=== PATIENT | female | born 1945 | race Caucasian/White ===

== ENCOUNTER 2018-03-09 10:00 | Outpatient (RCR) | payer OTHER, SELFPAY ==
--- NOTE | 2017-11-15 13:31 | HP.PTREVAL ---
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 Please see the progress note below for an update on the physical therapy plan of care! Subjective: Pt reports that she has weak muscles and that is why she needs to do more PT. She reports that her knee feels like it wants to buckle all the time. She reports that she is using her walker at night to go to bathroom but other than that she walks around the house without any AD. Pt complains of hardness behind the L knee at night. She complains of not having the strength to pull leg back or lift leg up. Objective/Function: Stairs: Up and down recip with hesitation with 2 hand rails. Weakness apparent both ascending and descending stairs. L knee AROM: 0-106 degrees. Tight just below the posterior knee...stick roll out in sitting helped and increased circulation per pt subjective. 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 +++LEFS below was transfered from old chart because pt needs new chart for insurance purposes. Goals Goal 1:: I HEP Goal Time Frame: 6-8 Weeks Goal 2:: Increase L knee AROM 0-120 degrees L knee flexion Goal Time Frame: 6-8 Weeks Goal Progress: Progressing Goal 3:: Be able to walk without AD without antalgic gait Goal Time Frame: 6-8 Weeks Goal 4:: Increase strength in L knee and hip to abolish the feeling that the K knee will give out on her. Goal Time Frame: 6-8 Weeks Anticipated Interventions Please do not hesitate to contact me at [phone] by phone or if you have questions or concerns regarding this new plan of care! Sincerely, Keke Pedro
--- NOTE | 2017-12-08 12:58 | HP.PTREVAL_ITS ---
Yaniv Wiseman, It has been my pleasure to treat JAD CHRISTINA over the last 7 visits for L TKR done 10-09-2017 and spacer replaced 09-08-17 effusion and Fibrosis. Please see the progress note below for an update on the physical therapy plan of care! Subjective: Pt reports that she feels she is still a little weaknd still leaves Objective/Function: Pt favors the R leg with gait with decrease stance time on the L. She needs min A to walk BW without AD for unsteadiness and fear...the more we did the better she became. She also had some trouble with side stepping due to weakness and imbalance. L knee AROM 0- 110 degrees L knee flexion. Stairs: up and down recip with 2 hand rails. Going up was a very smooth motion and going down was a little more broken. Plan Plan: Re assessment with MD. Would like to work on gait and balance mechanics as well as increase L leg strength Goals Goal 1:: I HEP Goal Time Frame: 6-8 Weeks Goal Progress: Goal Met Goal 2:: Increase L knee AROM 0-120 degrees L knee flexion Goal Time Frame: 6-8 Weeks Goal Progress: Progressing Goal 3:: Be able to walk without AD without antalgic gait Goal Time Frame: 6-8 Weeks Goal Progress: Progressing Goal 4:: Increase strength in L knee and hip to abolish the feeling that the K knee will give out on her. Goal Time Frame: 6-8 Weeks Anticipated Interventions Please do not hesitate to contact me at [phone] by phone or Fax: if you have questions or concerns regarding this new plan of care! Sincerely, Keke Pedro
--- NOTE | 2018-03-11 13:03 | HP.PT.NRP ---
HP - Discharge Summary (1) - Patient Information JAD CHRISTINA was seen in my office for initial evaluation on . The following Plan of Care was established for this patient: This patient was last seen in our office . Pertinent comments regarding their Physical therapy will appear below: At this point I will be discontinuing this patient from physical therapy. I would be happy to see this patient again in the future if found appropriate by the physician. Thank you! Keke Pedro
== END 2018-03-09 19:00 | disposition home or self-care (01) ==
LOC: PT 10:00
PROVIDERS: Family Provider Nurse Practitioner Family; PCP Nurse Practitioner Family; Visit Provider Nurse Practitioner Family
DX: Z96.652 Presence of left artificial knee joint (principal)
CPT/HCPCS: 97110; 97140; 97530

== ENCOUNTER → 2018-09-28 08:37 | Outpatient (CLI) | payer OTHER, SELFPAY ==
--- NOTE | 2018-09-28 15:14 | NEURO ---
NCS and/or EMG Patient Report Ordering Doctor: Amilcar Christy DATE OF SERVICE: 09/28/18 Judi Phillips is a 73-year-old female presents for electrodiagnostic testing of the left lower limb. She has complaints of weakness and numbness in the left lower leg. Electrodiagnostic findings: Normal left common peroneal and tibial motor response is noted bilaterally. Normal tibial and peroneal F-wave. H reflex is within normal limits. Prolonged left sural latencies noted normal left superficial peroneal and medial plantar response. Needle EMG testing reveals 1+ fibrillations in the left peroneus longus. Electrodiagnostic impression: This is an abnormal study in the left lower limb 1. 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 2. No electrodiagnostic evidence for peroneal neuropathy. 2. No electrodiagnostic evidence is noted for lumbosacral radiculopathy. If there are any further questions, please do not hesitate to contact me
== END ==
PROVIDERS: Family Provider Nurse Practitioner Family; PCP Nurse Practitioner Family; Referring Provider Specialist; Visit Provider Specialist
DX: R53.1 Weakness (principal)
CPT/HCPCS: 95886; 95910

== ENCOUNTER → 2018-12-15 13:01 | Outpatient (CLI) | payer OTHER, SELFPAY ==
[2017-09-08 19:26] VITALS: BMI 38.9
--- NOTE | 2018-12-15 13:07 | RAD_ITS ---
STUDY: X-RAY - LUMBAR SPINE REASON FOR EXAM: Female, 73 years old. Chronic low back pain. TECHNIQUE: 2 view(s) of the lumbar spine were obtained. COMPARISON: None FINDINGS: Normal lumbar lordosis. There is no substantial scoliosis. Grade 1 anterior listhesis of L4 on L5 without spondylolysis. This is most likely secondary to facet joint osteoarthritis. There is multilevel endplate spondylosis of the lumbar vertebrae. There is multi-level degenerative disc disease with multi-level disc space narrowing. Facet joint osteoarthritis. There is atherosclerotic calcification of the abdominal aorta without a demonstrated aneurysm. RAD/Lumbar Spine 2 or 3 Views IMPRESSION: Degenerative changes of the spine, as detailed above. Grade 1 anterior listhesis of L4 on L5. Electronically Signed: Osvaldo Carter MD at 14:35 EST , Service support ,
== END ==
PROVIDERS: Family Provider Nurse Practitioner Family; PCP Nurse Practitioner Family; Referring Provider Orthopaedic Surgery; Visit Provider Orthopaedic Surgery
DX: M54.5 Low back pain (principal)
CPT/HCPCS: 72100

== ENCOUNTER → 2019-03-08 | Outpatient (CLI) | payer OTHER, SELFPAY ==
--- NOTE | 2019-03-08 09:24 | BD_ITS ---
STUDY: DUAL ENERGY X-RAY ABSORPTIOMETRY / DXA REASON FOR EXAM: Female, 73 years old. The patient is post menopausal. TECHNIQUE: Bone Mineral Density (BMD) measurements of lumbar spine and bilateral hips were obtained. COMPARISON: None. FINDINGS: Lumbar Spine (L1-L4): g/cm2 (1.193) / T-score (0.1) / Z-score (1.8) Findings are suggestive of normal bone density with a low fracture risk. Left Femur Total: g/cm2 (0.953) / T-score (-0.4) / Z-score (1.2) Left Femoral Neck: g/cm2 (0.723) / T-score (-2.3) / Z-score (-0.4) Right Femur Total: g/cm2 (0.999) / T-score (-0.1) / Z-score (1.6) Right Femoral Neck: g/cm2 (0.786) / T-score (-1.8) / Z-score (0.1) BD/Dexa Bone Density Study IMPRESSION: The patient is considered osteopenic as outlined below according to World [employer] Organization (WHO) criteria with a moderate fracture risk. Reference Information: The T-score is the number of standard deviations above or below the standard which is normal for young adults at their peak bone mineral density. The World Health Organization (WHO) interprets the T-scores as follows: Above -1 Normal bone density Between -1 and -2.5 Osteopenia Equal to / or below -2.5 Osteoporosis As a practical clinical guideline, osteopenia may be graded as follows: Mild -1 through -1.5 Moderate -1.6 through -2.0 Severe -2.1 through -2.4 The Z-score is the number of standard deviations above or below age-matched controls. A Z-score of less than -1.5 would be considered abnormal. References: 1. NIH Osteoporosis and Related Bone Diseases http://www.osteo.org 2. International Society for Clinical Densitometry http://www.iscd.org 3. National Osteoporosis Foundation http://www.nof.org Electronically Signed: Osvaldo Carter, at 14:56 EDT , Service support ,
== END | disposition home or self-care (01) ==
PROVIDERS: Family Provider Nurse Practitioner Family; PCP Nurse Practitioner Family; Referring Provider Orthopaedic Surgery; Visit Provider Orthopaedic Surgery
DX: M85.80 Other specified disorders of bone density and structure, unspecified site (principal)
CPT/HCPCS: 77080

== ENCOUNTER → 2020-03-21 | Outpatient (CLI) | payer OTHER, SELFPAY ==
[2017-09-08 19:26] VITALS: BMI 38.9
== END | disposition home or self-care (01) ==
LOC: LABSPEC 15:30
PROVIDERS: PCP Nurse Practitioner Family; Visit Provider Otolaryngology
DX: H92.10 Otorrhea, unspecified ear (principal)
CPT/HCPCS: 87070; 87075; 87077; 87106; 87205

== ENCOUNTER → 2021-02-25 09:27 | Outpatient (CLI) | payer OTHER, SELFPAY ==
--- NOTE | 2021-02-25 09:30 | ART_ITS ---
Reason For Study: PVD Procedure A bilateral lower extremity continuous wave Doppler with analog waveform analysis,segmental pressures,and ankle brachial indexes without exercise. Left Segmental Pressures Left brachial= 121mmHg. Left dorsalis pedis artery = 158mmHg. Left posterior tibial artery = 156mmHg. The left dorsalis pedis waveforms are triphasic. The left posterior tibial artery waveforms are triphasic. Right Segmental Pressures Right brachial= 127mmHg. Right dorsalis pedis artery = 141mmHg. Right posterior tibial artery = 157mmHg. The right dorsalis pedis waveforms are triphasic. The right posterior tibial artery waveforms are triphasic. Indices The right ankle brachial index by the dorsalis pedis is 1.11. The right ankle brachial index by the posterior tibial artery is 1.24. The left ankle brachial index by the dorsalis pedis is 1.24. The left ankle brachial index by the posterior tibial artery is 1.23. VL/Lower Ext Art Exam w/o Exercis Interpretation Summary Bilateral lower extremities with triphasic flow and an REYNALDO of 1.24 bilaterally. Ordering Physician: Yaniv Wiseman Performed By: ALICE HOOD RVT
== END ==
PROVIDERS: PCP Nurse Practitioner Family; Referring Provider Nurse Practitioner Family; Visit Provider Nurse Practitioner Family
DX: I73.9 Peripheral vascular disease, unspecified (principal)
CPT/HCPCS: 93923

== ENCOUNTER 2021-08-08 01:24 | Inpatient (IN) | payer OTHER, SELFPAY ==
[2021-08-08] VITALS (19 sets, daily range): BP systolic 97–152; BP diastolic 50–63; PULSE 56–86; RESP 16–29; TEMP 36.6–39.7; O2SAT 87–98; BMI 38.7; BMI 36.8
--- NOTE | 2021-08-08 01:54 | EKG12_ITS ---
Test Reason : DYSRHYTHMIA Blood Pressure : / mmHG Vent. Rate : 072 BPM Atrial Rate : 072 BPM P-R Int : 246 ms QRS Dur : 094 ms QT Int : 390 ms P-R-T Axes : 071 -51 061 degrees QTc Int : 427 ms Sinus rhythm with 1st degree A-V block Left anterior fascicular block Abnormal ECG Confirmed by NURYS RODRIGUEZ, MONALISA ([id number]), features editor RUBY ZAFAR ([id number]) on 08/12/2021 7:48:21 AM Referred By: Confirmed By:MONALISA NUNO MD
[2021-08-08 02:02] LABS: Absolute Lymphocyte Count 0.63 X10^3/uL (0.83-4.51); Absolute Neutrophil Count 2.5 X10^3/uL (2.0-7.7); Basophil# 0.01 X10^3/uL; Basophil% 0.3 % (0-1); Hematocrit 38.8 % (37-47); Hemoglobin 13.2 g/dL (12.0-15.0); Lymphocyte # 0.63 X10^3/ul (0.83-4.51); Lymphocyte % 19.1 % (19-41); Mean Corpuscular Hgb 28.7 pg (27.0-32.0); Mean Corpuscular Volume 84.3 fL (81-99); Mean Platelet Vol. 10.3 fl (6.2-12.0); Monocyte# 0.18 X10^3/uL; Monocyte% 5.5 % (0-10); NRBC Flagged by Analyzer 0 % (0-5); Neutrophil # 2.47 X10^3/uL (2.7-7.7); Neutrophil % 74.8 % (47-70); POSITIVE MORPHOLOGY YES; Platelet Count 147 K/mm3 (150-450); RBC Distribution Width CV 14.5 % (11.6-14.6); RBC Distribution Width SD 44.5 fl (35.1-43.9); White Blood Count 3.3 K/mm3 (4.4-11.0)
[2021-08-08 02:06] LABS: Differential Indicated SCAN CRITERIA MET
[2021-08-08 02:10] LABS: International Normalized Ratio 1.1; Partial Thromboplast Time 32.2 Seconds (24.1-36.2); Prothrombin Time (Protime)PT. 13.4 SECONDS (11.7-14.9)
--- NOTE | 2021-08-08 02:17 | EX.ED.DYSGE1 ---
HPI History of Present Illness Chief Complaint: Shortness of Breath Informant: patient, family and EMS Narrative Narrative: 76-year-old female presents to the emergency room with weakness. Patient is a poor historian. Family tells me that she has been sick for about a week noting cough and some shortness of breath. They noted tonight she was unable to get up and walk. Patient denies any vomiting or diarrhea. EMS notes that she was hypoxic at 87. Nursing notes a temperature of 103.2. [facility] Medical History Hypertension Mitral prolapse Home Medications amlodipine 5 mg PO DAILY 10/23/15 [History Last Taken 10/12/16 05:00] atenolol 100 mg PO DAILY 10/23/15 [History Last Taken 10/12/16 05:00] omeprazole 20 mg PO DAILY PRN PRN 10/23/15 [History Last Taken 09/08/17 06:00] montelukast 10 mg PO DAILY@1700 #90 tab 09/10/17 [Rx Last Taken Unknown] acetaminophen 1,000 mg PO Q8 PRN 08/08/21 [History Last Taken Unknown] cholecalciferol (vitamin D3) [Vitamin D3] 25 mcg PO DAILY 08/08/21 [History Last Taken Unknown] losartan-hydrochlorothiazide 1 tab PO DAILY 08/08/21 [History Last Taken Unknown] lovastatin 40 mg PO DAILY 08/08/21 [History Last Taken Unknown] red yeast rice 600 mg PO DAILY 08/08/21 [History Last Taken Unknown] Allergy/AdvReac Type Severity Reaction Status Date / Time buspirone HCl [From BuSpar] Allergy Unknown Verified 08/08/21 01:26 Penicillins Allergy Rash Verified 08/08/21 01:26 rosuvastatin calcium Allergy Other Verified 08/08/21 01:26 [From Crestor] acetaminophen [From Vicodin] AdvReac Upset Verified 08/08/21 01:26 Stomach digoxin [From Lanoxin] AdvReac Other Verified 08/08/21 01:26 doxycycline AdvReac Upset Verified 08/08/21 01:26 Stomach erythromycin base AdvReac Other Verified 08/08/21 01:26 estrogens, conjugated AdvReac Other Verified 08/08/21 01:26 [From Premarin] hydrocodone [From Vicodin] AdvReac Upset Verified 08/08/21 01:26 Stomach valdecoxib [From Bextra] AdvReac Other Verified 08/08/21 01:26 ZAKI AdvReac Other Uncoded 08/08/21 01:26 HYCLATE AdvReac Upset Uncoded 08/08/21 01:26 Stomach Surgical History H/O total hysterectomy History of back surgery History of carpal tunnel surgery S/P cholecystectomy Total knee replacement status Social History (Updated 08/08/21 @ 02:[address] Russell Husain DO) Smoking Status: Never smoker substance use type: does not use ROS ROS ED ROS Narrative Generalized weakness Constitutional Constitutional ED: Reports chills, fever(s), subjective and sweats; Denies weight loss Eyes Eyes: Denies change in vision or diplopia ENT ENT ED: Denies ear pain, rhinorrhea or sore throat Cardiovascular Cardiovascular: Denies chest pain, orthopnea, palpitations or racing heartbeat Respiratory/Chest Respiratory/Chest: Reports cough, dyspnea and dyspnea on exertion; Denies orthopnea Gastrointestinal Gastrointestinal: Reports nausea; Denies abdominal pain, diarrhea or vomiting Genitourinary Genitourinary ED: Denies dysuria, hematuria or urinary frequency Musculoskeletal Musculoskeletal: Reports myalgias; Denies arthralgias Integumentary Denies abscess or rash Neurologic Neurologic: Reports headache(s); Denies weakness Psychiatric Psychiatric: Denies anxiety, depression, suicidal ideation or suicidal thoughts Endocrine Endocrinology: Denies polydipsia, polyphagia or polyuria Allergic/Immunologic Allergic/Immunologic ED: Denies mouth swelling, tongue swelling or urticaria EXAM Physical Exam Const Vital Signs: 08/08/21 01:29 08/08/21 01:36 08/08/21 02:02 Temperature 103.2 F H 103.5 F H 103.5 F H Temperature Source Oral Oral Oral Pulse Rate 82 73 Respiratory Rate 27 H 29 H Respiratory Effort Short of Breath Respiratory Depth Normal Respiratory Pattern Tachypnea Blood Pressure 122/57 H Blood Pressure Mean 78 Pulse Ox 88 98 96 Oxygen Delivery Method Room Air Nasal Cannula Nasal Cannula Oxygen Flow Rate (L/min) 2 2 08/08/21 02:43 08/08/21 03:00 08/08/21 04:00 Temperature 103.5 F H 101.8 F H 100.1 F H Temperature Source Oral Oral Oral Pulse Rate 71 69 61 Respiratory Rate 26 H 22 H 20 H Respiratory Effort Respiratory Depth Respiratory Pattern Blood Pressure 127/57 H 122/51 H 107/50 L Blood Pressure Mean 80 74 69 Pulse Ox 96 97 95 Oxygen Delivery Method Nasal Cannula Nasal Cannula Nasal Cannula Oxygen Flow Rate (L/min) 2 2 2 Positive well nourished, well developed and obese General Appearance ED: well developed Nutritional Appearance: obese HEENT Reports normocephalic, head/scalp atraumatic and moist mucous membranes Eyes PERRL and EOMs intact bilaterally Neck no lymphadenopathy, supple and no JVD Resp normal respiratory effort and clear to auscultation bilaterally Cardio regular rate, regular rhythm and no murmurs GI normal to inspection, nondistended, normoactive bowel sounds and non-tender Palpation: soft Back/Spine no CVA tenderness and normal ROM Extremity normal to inspection General Extremety ED: Negative for edema General Extremity: Negative for edema Neuro oriented x3 and CN's II-XII intact bilaterally Sensorium / Orientation: alert Motor Exam: strength 5/5 throughout Psych mental status grossly normal Mood & Affect: Negative for depressed or tearful Skin no rashes or lesions noted and no wounds MDM MDM MDM Narrative Medical decision making narrative: Patient currently requiring 3 L nasal cannula. White count 3.3. Potassium three-point with a sodium of 129. Creatinine 1.15 troponin of 27. Lactic acid 1.1. Patient received Tylenol Decadron and potassium. Chest x-ray shows multifocal areas of infiltrates. CTA of the chest shows no pulmonary embolism. Patient is weak and unable to get out of the bed without multiple people assist. Plan will be admission into the hospital Lab Data Attestation: I reviewed the patient's lab results. Labs: Laboratory Results - last 24 hr 08/08/21 08/08/21 08/08/21 01:39 01:39 01:39 WBC 3.3 L RBC 4.60 Hgb 13.2 Hct 38.8 MCV 84.3 MCH 28.7 MCHC 34.0 RDW Std Deviation 44.5 H RDW Coeff of Wallace 14.5 Plt Count 147 L MPV 10.3 Immature Gran % (Auto) 0.300 Neut % (Auto) 74.8 H Lymph % (Auto) 19.1 [place] % (Auto) 5.5 Eos % (Auto) 0.0 Baso % (Auto) 0.3 Absolute Neuts (auto) 2.5 Absolute Lymphs (auto) 0.63 L Nucleated RBC % 0 Differential Comment SCANNED PT 13.4 INR 1.1 APTT 32.2 Sodium 129 L Potassium 3.1 L Chloride 94 L Carbon Dioxide 28.0 Anion Gap 7 BUN 21 H Creatinine 1.15 H Estim Creat Clear Calc 37.45 Est GFR (MDRD) Af Amer 59 L Est GFR (MDRD) Non-Af 49 L BUN/Creatinine Ratio 18.3 Glucose 115 H Lactic Acid Calcium 8.1 L Total Bilirubin 0.70 AST 58 H ALT 28 Alkaline Phosphatase 56 Troponin I High Sens 27 Total Protein 7.3 Albumin 2.3 L Globulin 5.0 H Albumin/Globulin Ratio 0.5 L 08/08/21 01:39 WBC RBC Hgb Hct MCV MCH MCHC RDW Std Deviation RDW Coeff of Wallace Plt Count MPV Immature Gran % (Auto) Neut % (Auto) Lymph % (Auto) [place] % (Auto) Eos % (Auto) Baso % (Auto) Absolute Neuts (auto) Absolute Lymphs (auto) Nucleated RBC % Differential Comment PT INR APTT Sodium Potassium Chloride Carbon Dioxide Anion Gap BUN Creatinine Estim Creat Clear Calc Est GFR (MDRD) Af Amer Est GFR (MDRD) Non-Af BUN/Creatinine Ratio Glucose Lactic Acid 1.1 Calcium Total Bilirubin AST ALT Alkaline Phosphatase Troponin I High Sens Total Protein Albumin Globulin Albumin/Globulin Ratio Radiography Diagnostic Testing: Clinical Impression(s) from Imaging Studies Chest X-Ray 08/08/21 02:27 IMPRESSION: Hypoinflated lungs with interstitial prominence. Differential as above Electronically Signed: Yadiel Villatoro DO at 3:07 EDT Tel , Service support , Chest CTA 08/08/21 02:56 IMPRESSION: Normal CTA chest examination, without a demonstrated pulmonary embolism or arterial dissection. Diffuse patchy groundglass airspace disease bilaterally compatible with COVID 19. Enlarged and heterogeneously enhancing thyroid Electronically Signed: Yadiel Villatoro DO at 4:55 EDT Tel , Service support , EKG Initial EKG: Attestation: I personally reviewed and interpreted this EKG as follows: Comments: Sinus rhythm with a first-degree AV block and a ventricular rate of 72 bpm Discharge Plan Dx/Rx/DC Orders Clinical Impression: Acute hypokalemia, Generalized weakness, COVID-19, Acute hypoxemic respiratory failure Disposition Disposition: Acute Care Hospital [facility]
[2021-08-08 02:20] LABS: ALB/GLOB Ratio 0.5 RATIO (0.9-2.4); AST(SGOT) 58 U/L (15-37); Alanine Aminotransfer ALT/SGPT 28 U/L (13-56); Albumin, Serum 2.3 g/dL (3.2-5.0); Alkaline Phosphatase 56 U/L (45-117); Anion Gap 7 (5-15); BUN 21 mg/dL (7-18); BUN/Creat Ratio 18.3 RATIO (10-20); Calcium,Total 8.1 mg/dL (8.5-10.1); Chloride 94 mmol/L (98-107); Creatinine, Serum 1.15 mg/dL (0.55-1.02); EST Glomerular Filtration Rate 49 mL/min (>60); Est Glom Filt Rate - Afr Amer 59 mL/min (>60); Estimated Creatinine Clearance 37.45 ml/min; Glucose 115 mg/dL (74-106); Lactic Acid 1.1 mmol/L (0.4-1.9); Potassium 3.1 mmol/L (3.5-5.1); Protein, Total 7.3 g/dL (6.4-8.2); Sodium Level 129 mmol/L (136-145); Troponin-I HS 27 pg/mL (3.0-54.0)
--- NOTE | 2021-08-08 02:27 | RAD_ITS ---
STUDY: X-RAY CHEST REASON FOR EXAM: Female, 76 years old. fever TECHNIQUE: Single AP portable view of the chest. COMPARISON: None. FINDINGS: Lungs are hypoinflated with interstitial prominence throughout. Possible COVID infection versus pulmonary edema. There is no demonstrated pleural abnormality. Normal size heart. Normal mediastinum and marlys. Normal visualized pulmonary arteries. Normal visualized aortic arch and descending thoracic aorta. Normal visualized thoracic spine. Normal visualized ribs, clavicles, and shoulders. There is no demonstrated abnormality of the visualized soft tissue structures of the upper abdomen. RAD/Chest 1 View (Portable) IMPRESSION: Hypoinflated lungs with interstitial prominence. Differential as above Electronically Signed: Yadiel Villatoro DO at 3:07 EDT Tel , Service support ,
[2021-08-08] MEDS: Acetaminophen 500 MG Tablet 1000 MG PO ×2 (02:39→20:49)
[2021-08-08] MEDS: Potassium Chloride Oral Tablet 20 MEQ 40 MEQ PO (02:41)
[2021-08-08 02:45] LABS: Differential Comment SCANNED
--- NOTE | 2021-08-08 02:56 | CT_ITS ---
STUDY: CTA CHEST REASON FOR EXAM: Female, 76 years old. covid 19 pulmonary embolism RADIATION DOSAGE (If Supplied By Facility): CTDIvol = ( 12.67 ) mGy, DLP = ( 497.90 ) mGycm TECHNIQUE: The examination was performed with the intravenous administration of IV 100mL [id number]-[id number]. Post-processing of the angiographic images was performed, with multiplanar reformation and 3D reconstruction. Individualized dose optimization techniques were used for this CT. COMPARISON: None. FINDINGS: Enlarged thyroid with heterogeneous enhancement Normal enhancement of the main pulmonary artery and right and left pulmonary arteries. Normal enhancement of the bilateral peripheral pulmonary arteries. There is no demonstrated pulmonary embolism. Normal thoracic aorta and visualized great vessels. There is no demonstrated aortic dissection. Mild cardiomegaly. Normal mediastinum. Normal hilar regions. Normal visualized trachea and bronchi. The lungs are well expanded. Lungs are adequately inflated however, diffuse patchy groundglass airspace disease bilaterally is noted. Findings are compatible with COVID 19. Normal pleura. Normal chest wall structures. Normal osseous structures. Normal visualized upper abdomen. CT/CTA Chest W/WO Contrast IMPRESSION: Normal CTA chest examination, without a demonstrated pulmonary embolism or arterial dissection. Diffuse patchy groundglass airspace disease bilaterally compatible with COVID 19. Enlarged and heterogeneously enhancing thyroid Electronically Signed: Yadiel Villatoro DO at 4:55 EDT Tel , Service support ,
[2021-08-08] MEDS: dexAMETHasone 4 MG Tablet 6 MG PO (03:06)
--- NOTE | 2021-08-08 06:08 | PCM.HP.STD ---
HPI - General General Date of Admission: 08/08/21 Date of Service: 08/08/21 Chief Complaint: Covid-like symptoms HPI Narrative JAD CHRITSINA, is a 76 F difficult history of hypertension who presents. Reportedly her Covid-like symptoms started about 5 days before presentation. She reports her symptoms as shortness of breath; dry cough; fatigue; anorexia; and weakness. Reportedly patient is too weak to stand or walk. Further, patient's reports subjective fever. She denies chills. Patient is not vaccinated against COVID-19 virus. History is taken predominantly from nephew. 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 Occasionally patient answer some questions in Hebrew by herself. [facility] Medical History (Updated 08/08/21 @ 07:00 by Jadyn Ramírez) GERD (gastroesophageal reflux disease) Hypertension Mitral prolapse Home Medications amlodipine 5 mg PO DAILY 10/23/15 [History Last Taken 10/12/16 05:00] atenolol 100 mg PO DAILY 10/23/15 [History Last Taken 10/12/16 05:00] omeprazole 20 mg PO DAILY PRN PRN 10/23/15 [History Last Taken 09/08/17 06:00] montelukast 10 mg PO DAILY@1700 #90 tab 09/10/17 [Rx Last Taken Unknown] acetaminophen 1,000 mg PO Q8 PRN 08/08/21 [History Last Taken Unknown] cholecalciferol (vitamin D3) [Vitamin D3] 25 mcg PO DAILY 08/08/21 [History Last Taken Unknown] losartan-hydrochlorothiazide 1 tab PO DAILY 08/08/21 [History Last Taken Unknown] lovastatin 40 mg PO DAILY 08/08/21 [History Last Taken Unknown] red yeast rice 600 mg PO DAILY 08/08/21 [History Last Taken Unknown] Allergy/AdvReac Type Severity Reaction Status Date / Time buspirone HCl [From BuSpar] Allergy Unknown Verified 08/08/21 01:26 Penicillins Allergy Rash Verified 08/08/21 01:26 rosuvastatin calcium Allergy Other Verified 08/08/21 01:26 [From Crestor] acetaminophen [From Vicodin] AdvReac Upset Verified 08/08/21 01:26 Stomach digoxin [From Lanoxin] AdvReac Other Verified 08/08/21 01:26 doxycycline AdvReac Upset Verified 08/08/21 01:26 Stomach erythromycin base AdvReac Other Verified 08/08/21 01:26 estrogens, conjugated AdvReac Other Verified 08/08/21 01:26 [From Premarin] hydrocodone [From Vicodin] AdvReac Upset Verified 08/08/21 01:26 Stomach valdecoxib [From Bextra] AdvReac Other Verified 08/08/21 01:26 ZAKI AdvReac Other Uncoded 08/08/21 01:26 HYCLATE AdvReac Upset Uncoded 08/08/21 01:26 Stomach Family History other other (Patient denies any family medical history.) Surgical History (Updated 08/08/21 @ 07:00 by Jadyn Ramírez) H/O total hysterectomy History of appendectomy History of back surgery History of carpal tunnel surgery History of cholecystectomy S/P cholecystectomy Total knee replacement status Social History Smoking Status: Never smoker substance use type: does not use ROS ROS Narrative Pertinent positives and pertinent negatives as noted in HPI. All other systems were reviewed and are negative. Vital Signs Vital Signs Vital Signs: 08/08/21 01:29 08/08/21 01:36 08/08/21 02:02 Temperature 103.2 F H 103.5 F H 103.5 F H Temperature Source Oral Oral Oral Pulse Rate 82 73 Respiratory Rate 27 H 29 H Respiratory Effort Short of Breath Respiratory Depth Normal Respiratory Pattern Tachypnea Blood Pressure 122/57 H Blood Pressure Mean 78 Pulse Ox 88 98 96 Oxygen Delivery Method Room Air Nasal Cannula Nasal Cannula Oxygen Flow Rate (L/min) 2 2 08/08/21 02:43 08/08/21 03:00 08/08/21 04:00 Temperature 103.5 F H 101.8 F H 100.1 F H Temperature Source Oral Oral Oral Pulse Rate 71 69 61 Respiratory Rate 26 H 22 H 20 H Respiratory Effort Respiratory Depth Respiratory Pattern Blood Pressure 127/57 H 122/51 H 107/50 L Blood Pressure Mean 80 74 69 Pulse Ox 96 97 95 Oxygen Delivery Method Nasal Cannula Nasal Cannula Nasal Cannula Oxygen Flow Rate (L/min) 2 2 2 08/08/21 05:00 Temperature 99 F Temperature Source Oral Pulse Rate 61 Respiratory Rate 22 H Respiratory Effort Respiratory Depth Respiratory Pattern Blood Pressure 116/58 L Blood Pressure Mean 77 Pulse Ox 95 Oxygen Delivery Method Nasal Cannula Oxygen Flow Rate (L/min) 2 Weight Weight: 105.5 kg Body Mass Index (BMI) 38.7 Physical Exam Narrative Physical exam: General: Well-nourished, well-developed. Head: Normocephalic, atraumatic, no tenderness Eyes: PERRLA, EOMI ENT, no trauma, moist mucous membranes, no rhinorrhea Neck: Nontender, full range of motion, no spinal tenderness, deformities, step-off CVS: Regular rate and rhythm. S1-S2 present. No murmur, gallop or rub. Respiratory : Rales ,chest wall nontender, no wheezing Abdomen: Soft, nontender, nondistended, normal bowel sounds, no masses : Deferred Back: Nontender, no CVA tenderness, no midline spinal tenderness, deformities, step-offs Extremities: Nontender full range of motion, no trauma Skin: Normal color, no trauma, abrasions Neuro: Alert, oriented, cranial nerves II through XII grossly intact. Psychiatry: Normal mood. Normal affect. Not depressed. Not anxious. Results Lab / Micro Data Result Diagrams: 08/08/21 01:39 08/08/21 01:39 Labs: Laboratory Results - last 24 hr 08/08/21 01:39: WBC 3.3 L, RBC 4.60, Hgb 13.2, Hct 38.8, MCV 84.3, MCH 28.7, MCHC 34.0, RDW Std Deviation 44.5 H, RDW Coeff of Wallace 14.5, Plt Count 147 L, MPV 10.3, Immature Gran % (Auto) 0.300, Neut % (Auto) 74.8 H, Lymph % (Auto) 19.1, [place] % (Auto) 5.5, Eos % (Auto) 0.0, Baso % (Auto) 0.3, Absolute Neuts (auto) 2.5, Absolute Lymphs (auto) 0.63 L, Nucleated RBC % 0, Differential Comment SCANNED 08/08/21 01:39: PT 13.4, INR 1.1, APTT 32.2 08/08/21 01:39: Sodium 129 L, Potassium 3.1 L, Chloride 94 L, Carbon Dioxide 28.0, Anion Gap 7, BUN 21 H, Creatinine 1.15 H, Estim Creat Clear Calc 37.45, Est GFR (MDRD) Af Amer 59 L, Est GFR (MDRD) Non-Af 49 L, BUN/Creatinine Ratio 18.3, Glucose 115 H, Calcium 8.1 L, Total Bilirubin 0.70, AST 58 H, ALT 28, Alkaline Phosphatase 56, Troponin I High Sens 27, Total Protein 7.3, Albumin 2.3 L, Globulin 5.0 H, Albumin/Globulin Ratio 0.5 L 08/08/21 01:39: Lactic Acid 1.1 Micro: Microbiology 08/08/21 01:59 Mucosa - Nasopharyngeal Influenza Types A,B Direct FA (POPPY) - Final 08/08/21 01:39 Nasal Secretion SARS-CoV-2 Antigen (Rapid) - Final SARS-CoV-2 (COVID 19) Radiology Impression Chest X-Ray 08/08/21 02:27 IMPRESSION: Hypoinflated lungs with interstitial prominence. Differential as above Electronically Signed: Yadiel DO Irving at 3:07 EDT Tel , Service support , Chest CTA 08/08/21 02:56 IMPRESSION: Normal CTA chest examination, without a demonstrated pulmonary embolism or arterial dissection. Diffuse patchy groundglass airspace disease bilaterally compatible with COVID 19. Enlarged and heterogeneously enhancing thyroid Electronically Signed: Yadiel Villatoro DO at 4:55 EDT Tel , Service support , Assessment & Plan Assessment/Plan (1) Acute hypoxemic respiratory failure: (2) Debility: PLAN: Acute hypoxic respiratory failure secondary to COVID-19. Patient required supplemental oxygenation on presentation. Patient with tachypnea and rales. Actual chest CTA was independently interpreted and I agree with the interpretation above. CBC reviewed showed a white count of 3.3. Patient with neutrophilia and normal lymphocytes. Will start patient on Decadron and remdesivir. Continue supplemental oxygenation starting at the ED. Tylenol for fever Tessalon Perles for cough ordered. Albuterol as needed and admission. Debility secondary to COVID-19 PT and OT to work with patient. Charges/Coding Visit Charges Inpatient E&M: 08619 Init Hosp L3
--- NOTE | 2021-08-08 06:50 | PCS.PANDOC ---
PANDEMIC DOCUMENTATION INITIATED: Date: 08/08/2021 Time: 0650
[2021-08-08 08:14] LABS: Procalcitonin 0.29 ng/mL (0.00-0.09)
[2021-08-08] MEDS: Enoxaparin 30 MG/0.3 ML Syringe SC ×2 (09:48→20:50)
[2021-08-08] MEDS: 0.9% Saline Lock 10 ML Syringe IV (09:48)
[2021-08-08] MEDS: Cholecalciferol (VIT D3) 25 MCG TABLET (1,000 UNITS) PO (09:53)
--- NOTE | 2021-08-08 13:15 | CASEMGMT ---
JOMAR WRIGHT Assessment: Face to Face with pt for initial transition planning/care coordination assessment. JOMAR WRIGHT introduced self and role at [facility], pt voices understanding and consents to assessment. Pt is A/O x4 and answers all questions appropriately at this time. Pt sitting up in chair with O2 on in no distress. Care providers, pharmacy, and demographics verified/updated. Admitting Dx: Acute hypoxemic resp failure PCP: Jw Wiseman, [facility] Specialists:Luna White, cardio [facility]erred [facility]acy: [facility] Insurance: [employer] Prescription Benefit: yes through the [employer] LW/HPOA: Pt states she has a LW/DPOA. She states her DPOA is Moshe Genao, her nephew. She is aware that it is not on file at [facility] and she may bring in to be scanned into the chart. LNOK: Moshe Genao, nephew; Diana Genao, sister Living Arrangements: Pt lives in a big house with her nephew and sister. States she has a small part of the house that is on the main floor. She reports that she is I in ADL's and denies concerns at home. 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 DME/HHC/SNF: Pt has grab bars in the bathroom, walker, cane and raised toilet seat at home. Pt states she thinks she has had HHC in the past but is not sure of the name of the agency. Pt has been to [facility]. Pt states she was first tested for COVID at [facility]. She states that she does not plan on quarantining once home from the rest of her family. She states her sister has already had it. She does have family who can bring groceries and supplies while she stays at home. Discussed the possible need for O2 upon dc, pt states they can have electricity and they also have a solar set up so the O2 would not be an issue. Provided pt with local DME companies, pt had no preference. Pt states no concerns with going home at time of dc. Pt states no further concerns/needs. CM to follow. Advised pt to ask CM if any further question/concerns/needs arise, voices understanding. Pt Goal: Home Plan: Home, follow for O2.
[2021-08-08] MEDS: Montelukast 10 MG Tablet PO (17:59)
[2021-08-08] MEDS: Atorvastatin Calcium 10 MG Tablet PO (20:50)
--- NOTE | 2021-08-08 22:27 | PCM.PN.HOSP ---
Subjective Subjective Patient seen and examined. She was admittd this morning. On 2L oxygen Continue on decadron and Remdesivir Objective Data Objective Data Vital Signs: Vital Signs Temp Pulse Resp BP Pulse Ox 102.9 F H 86 18 152/59 H 93 08/08/21 20:36 08/08/21 20:36 08/08/21 20:36 08/08/21 20:36 08/08/21 20:36 Oxygen Flow Rate (L/min) 2 Oxygen Delivery Method Nasal Cannula Weight: 100.244 kg Body Mass Index (BMI) 36.8 Intake & Output: Intake and Output for Last 24 Hours 08/06/21 08/07/21 08/08/21 23:59 23:59 23:59 Intake Total 250 / 250 Balance 250 / 250 Lab / Micro Data Result Diagrams: 08/08/21 01:39 08/08/21 01:39 Labs: Laboratory Results - last 24 hr 08/08/21 01:39: WBC 3.3 L, RBC 4.60, Hgb 13.2, Hct 38.8, MCV 84.3, MCH 28.7, MCHC 34.0, RDW Std Deviation 44.5 H, RDW Coeff of Wallace 14.5, Plt Count 147 L, MPV 10.3, Immature Gran % (Auto) 0.300, Neut % (Auto) 74.8 H, Lymph % (Auto) 19.1, [place] % (Auto) 5.5, Eos % (Auto) 0.0, Baso % (Auto) 0.3, Absolute Neuts (auto) 2.5, Absolute Lymphs (auto) 0.63 L, Nucleated RBC % 0, Differential Comment SCANNED 08/08/21 01:39: PT 13.4, INR 1.1, APTT 32.2 08/08/21 01:39: Sodium 129 L, Potassium 3.1 L, Chloride 94 L, Carbon Dioxide 28.0, Anion Gap 7, BUN 21 H, Creatinine 1.15 H, Estim Creat Clear Calc 37.45, Est GFR (MDRD) Af Amer 59 L, Est GFR (MDRD) Non-Af 49 L, BUN/Creatinine Ratio 18.3, Glucose 115 H, Calcium 8.1 L, Total Bilirubin 0.70, AST 58 H, ALT 28, Alkaline Phosphatase 56, Troponin I High Sens 27, Total Protein 7.3, Albumin 2.3 L, Globulin 5.0 H, Albumin/Globulin Ratio 0.5 L 08/08/21 01:39: Lactic Acid 1.1 08/08/21 01:39: Procalcitonin 0.29 H Micro: Microbiology 08/08/21 01:59 Mucosa - Nasopharyngeal Influenza Types A,B Direct FA (POPPY) - Final 08/08/21 01:39 Nasal Secretion SARS-CoV-2 Antigen (Rapid) - Final SARS-CoV-2 (COVID 19) Radiography Diagnostic Testing: Radiology Impression Chest X-Ray 08/08/21 02:27 IMPRESSION: Hypoinflated lungs with interstitial prominence. Differential as above Electronically Signed: Yadiel Villatoro DO at 3:07 EDT Tel , Service support , Chest CTA 08/08/21 02:56 IMPRESSION: Normal CTA chest examination, without a demonstrated pulmonary embolism or arterial dissection. Diffuse patchy groundglass airspace disease bilaterally compatible with COVID 19. Enlarged and heterogeneously enhancing thyroid Electronically Signed: Yadiel Villatoro DO at 4:55 EDT Tel , Service support ,
[2021-08-09] VITALS (14 sets, daily range): BP systolic 94–127; BP diastolic 47–75; PULSE 49–84; RESP 16–28; TEMP 36.5–38.3; O2SAT 92–96
--- NOTE | 2021-08-09 00:27 | PCS.PANDOC ---
PANDEMIC DOCUMENTATION INITIATED: Date: 08/08/21 Time:08/08/21
[2021-08-09 07:50] LABS: Absolute Lymphocyte Count 0.74 X10^3/uL (0.83-4.51); Absolute Neutrophil Count 3.8 X10^3/uL (2.0-7.7); Hematocrit 40.4 % (37-47); Hemoglobin 13.7 g/dL (12.0-15.0); Lymphocyte # 0.74 X10^3/ul (0.83-4.51); Lymphocyte % 15.4 % (19-41); Mean Corp Hgb Conc 33.9 g/dL (32-36); Mean Corpuscular Hgb 28.7 pg (27.0-32.0); Mean Corpuscular Volume 84.7 fL (81-99); Mean Platelet Vol. 9.9 fl (6.2-12.0); Monocyte# 0.25 X10^3/uL; Monocyte% 5.2 % (0-10); NRBC Flagged by Analyzer 0 % (0-5); Platelet Count 159 K/mm3 (150-450); RBC Distribution Width CV 14.7 % (11.6-14.6); RBC Distribution Width SD 45.1 fl (35.1-43.9); Red Blood Count 4.77 M/mm3 (4.2-5.4); White Blood Count 4.8 K/mm3 (4.4-11.0)
[2021-08-09 08:32] LABS: ALB/GLOB Ratio 0.4 RATIO (0.9-2.4); AST(SGOT) 54 U/L (15-37); Alanine Aminotransfer ALT/SGPT 24 U/L (13-56); Alkaline Phosphatase 54 U/L (45-117); Anion Gap 8 (5-15); BUN 20 mg/dL (7-18); BUN/Creat Ratio 21.2 RATIO (10-20); Calcium,Total 8.7 mg/dL (8.5-10.1); Chloride 96 mmol/L (98-107); Creatinine, Serum 0.94 mg/dL (0.55-1.02); EST Glomerular Filtration Rate 61 mL/min (>60); Est Glom Filt Rate - Afr Amer 74 mL/min (>60); Estimated Creatinine Clearance 43.97 ml/min; Glucose 108 mg/dL (74-106); Potassium 3.7 mmol/L (3.5-5.1); Sodium Level 131 mmol/L (136-145)
[2021-08-09] MEDS: Acetaminophen 500 MG Tablet 1000 MG PO (09:32)
[2021-08-09] MEDS: Enoxaparin 30 MG/0.3 ML Syringe SC ×2 (09:32→22:34)
[2021-08-09] MEDS: Atenolol 100 MG Tablet PO (09:33)
[2021-08-09] MEDS: amLODIPine 5 MG Tablet PO (09:33)
[2021-08-09] MEDS: Cholecalciferol (VIT D3) 25 MCG TABLET (1,000 UNITS) PO (09:33)
[2021-08-09] MEDS: dexAMETHasone 4 MG Tablet 6 MG PO (09:33)
[2021-08-09] MEDS: Losartan Potassium 50 MG Tablet PO (09:33)
[2021-08-09] MEDS: hydroCHLOROthiazide 12.5mg 12.5 MG PO (09:34)
[2021-08-09] MEDS: 0.9% Saline Lock 10 ML Syringe IV ×2 (10:16→16:39)
--- NOTE | 2021-08-09 15:29 | PCM.PN.HOSP ---
Subjective Subjective Patient was seen and examined. She remains on 2 to 3 L of oxygen. Patient still remains febrile. Denied any new complaints. Objective Data Objective Data Vital Signs: Vital Signs Temp Pulse Resp BP Pulse Ox 98.0 F 70 28 H 94/47 L 94 08/09/21 13:46 08/09/21 13:50 08/09/21 13:46 08/09/21 13:46 08/09/21 14:00 Oxygen Flow Rate (L/min) 3 Oxygen Delivery Method Nasal Cannula Weight: 100.244 kg Body Mass Index (BMI) 36.8 Intake & Output: Intake and Output for Last 24 Hours 08/07/21 08/08/21 08/09/21 23:59 23:59 23:59 Intake Total 250 / 250 850 / 850 Balance 250 / 250 850 / 850 Lab / Micro Data Result Diagrams: 08/09/21 07:08 08/09/21 07:08 Labs: Laboratory Results - last 24 hr 08/09/21 07:08: WBC 4.8, RBC 4.77, Hgb 13.7, Hct 40.4, MCV 84.7, MCH 28.7, MCHC 33.9, RDW Std Deviation 45.1 H, RDW Coeff of Wallace 14.7 H, Plt Count 159, MPV 9.9, Immature Gran % (Auto) 0.400, Neut % (Auto) 79.0 H, Lymph % (Auto) 15.4 L, [place] % (Auto) 5.2, Eos % (Auto) 0.0, Baso % (Auto) 0.0, Absolute Neuts (auto) 3.8, Absolute Lymphs (auto) 0.74 L, Nucleated RBC % 0 08/09/21 07:08: Sodium 131 L, Potassium 3.7, Chloride 96 L, Carbon Dioxide 27.0, Anion Gap 8, BUN 20 H, Creatinine 0.94, Estim Creat Clear Calc 43.97, Est GFR (MDRD) Af Amer 74, Est GFR (MDRD) Non-Af 61, BUN/Creatinine Ratio 21.2 H, Glucose 108 H, Calcium 8.7, Total Bilirubin 0.50, AST 54 H, ALT 24, Alkaline Phosphatase 54, Total Protein 7.0, Albumin 2.0 L, Globulin 5.0 H, Albumin/Globulin Ratio 0.4 L Micro: Microbiology 08/08/21 01:59 Mucosa - Nasopharyngeal Influenza Types A,B Direct FA (POPPY) - Final 08/08/21 01:39 Nasal Secretion SARS-CoV-2 Antigen (Rapid) - Final SARS-CoV-2 (COVID 19) Physical Exam Narrative Physical exam: General: Alert, Oriented x3, Cooperative, No apparent distress, Well developed HEENT: Atraumatic Oral: Moist Mucosa Neck: Supple Lungs: Diminished to auscultation Cardiovascular: HS I+II, regular, no murmurs Abdomen: Bowel Sounds Present, Soft, Non Tender Extremities: No edema Assessment & Plan Assessment/Plan (1) Acute hypoxemic respiratory failure: (2) Debility: PLAN: 1. Acute hypoxic respiratory failure secondary to Acute COVID-19 pneumonia Patient is unvaccinated. She has been sick for about a week prior to presentation. Patient is currently on 3 L of oxygen, continue on Decadron and Remdesivir Continue to encourage incentive spirometer, wean off for SPO2 more than 94% 2. Hypertension, controlled, continue amlodipine, atenolol, losartan/hydrochlorothiazide 3. Hyperlipidemia, continue statin 4. Debility secondary to Acute COVID-19 infection PT/OT consulted Charges/Coding Visit Charges Inpatient E&M: 37412 Subs Hosp L3
[2021-08-09] MEDS: Montelukast 10 MG Tablet PO (16:39)
[2021-08-09 20:58] LABS: Mucous, Urine 0 SEEN /hpf (<or=2+); Red Blood Cells-Urine 0 SEEN /hpf (0-5)
[2021-08-09 21:02] LABS: Color, Urine Yellow (Yellow); Glucose, Dipstick Normal (Normal); Ketone-Dipstick Negative (Negative); Leukocyte Esterase-Dipstick 100 /ul (Negative); Nitrite-Dipstick Negative (Negative); Occult Blood-Urine 10 /ul (Negative); Protein-Dipstick 30 mg/dl (Negative); Specific Gravity, Urine 1.015 (1.002-1.030); Urine Bilirubin Dipstick Negative (Negative); Urine Clarity Sl. Cloudy (Clear); Urine Urobilinogen Normal (Normal)
[2021-08-09 21:08] LABS: Bacteria 1+ /hpf (None Seen); Squamous Epithelial Cells - UA 0-5 SEEN /hpf (5-10); White Blood Cells 0-5 SEEN /hpf (0-5)
[2021-08-09] MEDS: Atorvastatin Calcium 10 MG Tablet PO (22:34)
[2021-08-09] MEDS: MELATONIN 3 MG TABLET PO (22:34)
[2021-08-10] VITALS (13 sets, daily range): BP systolic 102–124; BP diastolic 48–62; PULSE 47–61; RESP 16–24; TEMP 36.1–36.6; O2SAT 92–95
[2021-08-10 07:07] LABS: Absolute Lymphocyte Count 0.86 X10^3/uL (0.83-4.51); Absolute Neutrophil Count 2.7 X10^3/uL (2.0-7.7); Basophil# 0.01 X10^3/uL; Basophil% 0.3 % (0-1); Hematocrit 38.4 % (37-47); Hemoglobin 13.1 g/dL (12.0-15.0); Lymphocyte # 0.86 X10^3/ul (0.83-4.51); Lymphocyte % 22.3 % (19-41); Mean Corp Hgb Conc 34.1 g/dL (32-36); Mean Corpuscular Hgb 28.9 pg (27.0-32.0); Mean Corpuscular Volume 84.8 fL (81-99); Mean Platelet Vol. 10.2 fl (6.2-12.0); Monocyte# 0.24 X10^3/uL; Monocyte% 6.2 % (0-10); NRBC Flagged by Analyzer 0 % (0-5); Neutrophil # 2.72 X10^3/uL (2.7-7.7); Neutrophil % 70.7 % (47-70); POSITIVE MORPHOLOGY YES; Platelet Count 174 K/mm3 (150-450); RBC Distribution Width CV 14.8 % (11.6-14.6); RBC Distribution Width SD 45.9 fl (35.1-43.9); Red Blood Count 4.53 M/mm3 (4.2-5.4); White Blood Count 3.9 K/mm3 (4.4-11.0)
[2021-08-10 07:14] LABS: Differential Indicated SCAN CRITERIA MET
[2021-08-10 07:49] LABS: ALB/GLOB Ratio 0.4 RATIO (0.9-2.4); AST(SGOT) 46 U/L (15-37); Alanine Aminotransfer ALT/SGPT 22 U/L (13-56); Albumin, Serum 1.9 g/dL (3.2-5.0); Alkaline Phosphatase 50 U/L (45-117); Anion Gap 8 (5-15); BUN 27 mg/dL (7-18); Calcium,Total 9.1 mg/dL (8.5-10.1); Chloride 97 mmol/L (98-107); Creatinine, Serum 0.84 mg/dL (0.55-1.02); EST Glomerular Filtration Rate 70 mL/min (>60); Est Glom Filt Rate - Afr Amer 84 mL/min (>60); Globulin 4.8 g/dL (2.2-4.2); Glucose 120 mg/dL (74-106); Potassium 3.3 mmol/L (3.5-5.1); Protein, Total 6.7 g/dL (6.4-8.2); Sodium Level 134 mmol/L (136-145)
[2021-08-10] MEDS: dexAMETHasone 4 MG Tablet 6 MG PO (09:24)
[2021-08-10] MEDS: Enoxaparin 30 MG/0.3 ML Syringe SC ×2 (09:24→21:44)
[2021-08-10] MEDS: 0.9% Saline Lock 10 ML Syringe IV ×2 (09:24→12:40)
[2021-08-10] MEDS: Cholecalciferol (VIT D3) 25 MCG TABLET (1,000 UNITS) PO (09:26)
[2021-08-10] MEDS: Furosemide 20 MG/2 ML VIAL IV (12:39)
[2021-08-10] MEDS: Potassium Chloride Oral Tablet 20 MEQ 60 MEQ PO (12:39)
--- NOTE | 2021-08-10 15:49 | PN.HOSP_ITS ---
Subjective Subjective Follow-up on acute hypoxic respiratory failure/acute COVID-19 pneumonia: Patient was seen and examined. She is on 5 L of oxygen. No other acute events overnight. Objective Data Objective Data Vital Signs: Vital Signs Temp Pulse Resp BP Pulse Ox 97.4 F L 61 16 107/54 L 95 08/10/21 14:11 08/10/21 14:11 08/10/21 14:11 08/10/21 14:11 08/10/21 14:51 Oxygen Flow Rate (L/min) 5 Oxygen Delivery Method Nasal Cannula Weight: 100.244 kg Body Mass Index (BMI) 36.8 Intake & Output: Intake and Output for Last 24 Hours 08/08/21 08/09/21 08/10/21 23:59 23:59 23:59 Intake Total 250 / 250 850 / 950 350 / 350 Balance 250 / 250 850 / 950 350 / 350 Lab / Micro Data Result Diagrams: 08/10/21 06:10 08/10/21 06:10 Labs: Laboratory Results - last 24 hr 08/09/21 20:36: Urine Color Yellow, Urine Clarity Sl. Cloudy, Urine pH 6.0, Ur Specific Brilliant 1.015, Urine Protein 30 H, Urine Glucose (UA) Normal, Urine Ketones Negative, Urine Occult Blood 10 H, Urine Nitrite Negative, Urine Bilirubin Negative, Urine Urobilinogen Normal, Ur Leukocyte Esterase 100 H, Urine RBC 0 SEEN, Urine WBC 0-5 SEEN, Ur Squamous Epith Cells 0-5 SEEN, Urine Bacteria 1+, Urine Mucus 0 SEEN 08/10/21 06:10: WBC 3.9 L, RBC 4.53, Hgb 13.1, Hct 38.4, MCV 84.8, MCH 28.9, MCHC 34.1, RDW Std Deviation 45.9 H, RDW Coeff of Wallace 14.8 H, Plt Count 174, MPV 10.2, Immature Gran % (Auto) 0.500, Neut % (Auto) 70.7 H, Lymph % (Auto) 22.3, [place] % (Auto) 6.2, Eos % (Auto) 0.0, Baso % (Auto) 0.3, Absolute Neuts (auto) 2.7, Absolute Lymphs (auto) 0.86, Nucleated RBC % 0 08/10/21 06:10: Sodium 134 L, Potassium 3.3 L, Chloride 97 L, Carbon Dioxide 29.0, Anion Gap 8, BUN 27 H, Creatinine 0.84, Estim Creat Clear Calc 49.20, Est GFR (MDRD) Af Amer 84, Est GFR (MDRD) Non-Af 70, BUN/Creatinine Ratio 32.0 H, Glucose 120 H, Calcium 9.1, Total Bilirubin 0.40, AST 46 H, ALT 22, Alkaline Phosphatase 50, Total Protein 6.7, Albumin 1.9 L, Globulin 4.8 H, Albumin/Globulin Ratio 0.4 L Micro: Microbiology 08/08/21 01:59 Mucosa - Nasopharyngeal Influenza Types A,B Direct FA (POPPY) - Final 08/08/21 01:39 Nasal Secretion SARS-CoV-2 Antigen (Rapid) - Final SARS-CoV-2 (COVID 19) Physical Exam Narrative Physical exam: General: Alert, Oriented x3, Cooperative, No apparent distress, Well developed, on 5 L of oxygen HEENT: Atraumatic Oral: Moist Mucosa Neck: Supple Lungs: Diminished to auscultation Cardiovascular: HS I+II, regular, no murmurs Abdomen: Bowel Sounds Present, Soft, Non Tender Extremities: No edema Assessment & Plan Assessment/Plan (1) Acute hypoxemic respiratory failure: (2) Debility: PLAN: 1. Acute hypoxic respiratory failure secondary to Acute COVID-19 pneumonia, slightly worsening Patient is unvaccinated. She has been sick for about a week prior to presentation. Patient is currently on 5 L of oxygen, continue on Decadron and Remdesivir Continue to encourage incentive spirometer, wean off for SPO2 more than 94% Trial of Lasix 40 mg IV x1 2. Hypokalemia, replaced, recheck in a.m. 3. Hypertension, controlled, continue amlodipine, atenolol, losartan/hydrochlorothiazide 4. Hyperlipidemia, continue statin 5. Debility secondary to Acute COVID-19 infection PT/OT consulted Charges/Coding Visit Charges Inpatient E&M: 37720 Subs Hosp L3
[2021-08-10] MEDS: Montelukast 10 MG Tablet PO (16:38)
[2021-08-10] MEDS: MELATONIN 3 MG TABLET PO (21:43)
[2021-08-10] MEDS: Atorvastatin Calcium 10 MG Tablet PO (21:43)
[2021-08-10] MEDS: Calcium Carbonate 500 MG Tablet 1000 MG PO (21:44)
[2021-08-11] VITALS (17 sets, daily range): BP systolic 101–120; BP diastolic 55–67; PULSE 49–63; RESP 18–20; TEMP 36–36.6; O2SAT 84–95
[2021-08-11 06:07] LABS: Absolute Lymphocyte Count 1.08 X10^3/uL (0.83-4.51); Absolute Neutrophil Count 4.9 X10^3/uL (2.0-7.7); Hematocrit 39.3 % (37-47); Hemoglobin 13.3 g/dL (12.0-15.0); Lymphocyte # 1.08 X10^3/ul (0.83-4.51); Mean Corp Hgb Conc 33.8 g/dL (32-36); Mean Corpuscular Hgb 28.7 pg (27.0-32.0); Mean Corpuscular Volume 84.9 fL (81-99); Mean Platelet Vol. 10.1 fl (6.2-12.0); Monocyte# 0.34 X10^3/uL; Monocyte% 5.3 % (0-10); NRBC Flagged by Analyzer 0 % (0-5); Neutrophil % 76.9 % (47-70); POSITIVE MORPHOLOGY YES; Platelet Count 224 K/mm3 (150-450); RBC Distribution Width CV 14.8 % (11.6-14.6); RBC Distribution Width SD 46.3 fl (35.1-43.9); Red Blood Count 4.63 M/mm3 (4.2-5.4); White Blood Count 6.4 K/mm3 (4.4-11.0)
[2021-08-11 06:25] LABS: Differential Indicated SCAN CRITERIA MET
[2021-08-11 06:42] LABS: ALB/GLOB Ratio 0.4 RATIO (0.9-2.4); AST(SGOT) 44 U/L (15-37); Alanine Aminotransfer ALT/SGPT 23 U/L (13-56); Alkaline Phosphatase 52 U/L (45-117); Anion Gap 8 (5-15); BUN 29 mg/dL (7-18); BUN/Creat Ratio 34.5 RATIO (10-20); Calcium,Total 9.2 mg/dL (8.5-10.1); Chloride 100 mmol/L (98-107); Creatinine, Serum 0.84 mg/dL (0.55-1.02); EST Glomerular Filtration Rate 70 mL/min (>60); Est Glom Filt Rate - Afr Amer 85 mL/min (>60); Globulin 4.9 g/dL (2.2-4.2); Glucose 105 mg/dL (74-106); Potassium 3.8 mmol/L (3.5-5.1); Protein, Total 6.9 g/dL (6.4-8.2); Sodium Level 137 mmol/L (136-145)
[2021-08-11] MEDS: 0.9% Saline Lock 10 ML Syringe IV (10:03)
[2021-08-11] MEDS: Enoxaparin 30 MG/0.3 ML Syringe SC ×2 (10:07→22:01)
[2021-08-11] MEDS: dexAMETHasone 4 MG Tablet 6 MG PO (10:07)
[2021-08-11] MEDS: Cholecalciferol (VIT D3) 25 MCG TABLET (1,000 UNITS) PO (10:09)
[2021-08-11] MEDS: amLODIPine 5 MG Tablet PO (10:11)
[2021-08-11] MEDS: Atenolol 100 MG Tablet PO (10:11)
[2021-08-11] MEDS: Losartan Potassium 25 MG Tablet PO (10:12)
[2021-08-11] MEDS: hydroCHLOROthiazide 12.5mg 12.5 MG PO (10:12)
--- NOTE | 2021-08-11 12:41 | PN.HOSP_ITS ---
Objective Data Objective Data Vital Signs: Vital Signs Temp Pulse Resp BP Pulse Ox 96.8 F L 56 L 18 119/59 L 90 08/11/21 10:01 08/11/21 11:00 08/11/21 10:01 08/11/21 10:01 08/11/21 10:18 Oxygen Flow Rate (L/min) [ 6 AMBULATING with Oxygen #2] Oxygen Flow Rate (L/min) [ 3 AMBULATING with Oxygen #1] Oxygen Flow Rate (L/min) 4.5 Oxygen Delivery Method Nasal Cannula Weight: 100.244 kg Body Mass Index (BMI) 36.8 Intake & Output: Intake and Output for Last 24 Hours 08/09/21 08/10/21 08/11/21 23:59 23:59 23:59 Intake Total 850 / 950 350 / 450 150 / 150 Balance 850 / 950 350 / 450 150 / 150 Lab / Micro Data Result Diagrams: 08/11/21 05:30 08/11/21 05:30 Labs: Laboratory Results - last 24 hr 08/11/21 05:30: WBC 6.4, RBC 4.63, Hgb 13.3, Hct 39.3, MCV 84.9, MCH 28.7, MCHC 33.8, RDW Std Deviation 46.3 H, RDW Coeff of Wallace 14.8 H, Plt Count 224, MPV 10.1, Immature Gran % (Auto) 0.800, Neut % (Auto) 76.9 H, Lymph % (Auto) 17.0 L, [place] % (Auto) 5.3, Eos % (Auto) 0.0, Baso % (Auto) 0.0, Absolute Neuts (auto) 4.9, Absolute Lymphs (auto) 1.08, Nucleated RBC % 0 08/11/21 05:30: Sodium 137, Potassium 3.8, Chloride 100, Carbon Dioxide 29.0, Anion Gap 8, BUN 29 H, Creatinine 0.84, Estim Creat Clear Calc 49.20, Est GFR (MDRD) Af Amer 85, Est GFR (MDRD) Non-Af 70, BUN/Creatinine Ratio 34.5 H, Glucose 105, Calcium 9.2, Total Bilirubin 0.50, AST 44 H, ALT 23, Alkaline Phosphatase 52, Total Protein 6.9, Albumin 2.0 L, Globulin 4.9 H, Albumin/Globulin Ratio 0.4 L Micro: Microbiology 08/10/21 09:04 Urine, Clean Catch Urine Culture - Final Mixed Gram Pos & Gram Neg Org 08/08/21 01:59 Mucosa - Nasopharyngeal Influenza Types A,B Direct FA (POPPY) - Final 08/08/21 01:39 Nasal Secretion SARS-CoV-2 Antigen (Rapid) - Final SARS-CoV-2 (COVID 19) Physical Exam Narrative GENERAL: Appears ill looking HEENT: Atraumatic; EYES; Anicteric, Normal Conjunctiva NECK; supple, normal thyroid, RESPIRATORY: Diminished to auscultation CARDIOVASCULAR: Regular S1 S2, GI: soft, normoactive bowel sounds, : No Renal angle tenderness; EXTREMITIES: No edema, no clubbing, MUSCULOSKELETAL: no muscle waisting NEURO: Awake; no lateralizing signs. SKIN: No Rash PSYCH; Flat affect Assessment & Plan Assessment/Plan (1) Acute hypoxemic respiratory failure: (2) Debility: PLAN: Patient is a 76-year-old lady unvaccinated against COVID-19 who presented with a 1 week history of fever cough and shortness of breath. CT of the chest obtained on admission demonstrated diffuse patchy groundglass airspace disease compatible with COVID-19 which was confirmed with a positive assay 1. Acute hypoxic respiratory failure ?Secondary to SARS-CoV-2 pneumonia. Admitted to regular nursing floor managed with supplemental oxygen in addition to Decadron and remdesivir 2. Hypertension - Blood pressure controlled, home medications continued with dose adjustment as needed 3. Dyslipidemia -Patient is on statin therapy, continued at home dose 4. Hypokalemia ?Corrected per protocol repeat labs ordered 5. GERD ?Patient is on PPI did continue 6. Obesity with BMI of 36.8 ?Weight loss advised 7. Physical deconditioning - Requested for PT OT eval and social worker health services to assist with discharge planning 8. DVT prophylaxis ?Lovenox 30 mg SC twice daily Charges/Coding Visit Charges Inpatient E&M: 56906 [facility] Hosp L3
[2021-08-11] MEDS: Montelukast 10 MG Tablet PO (17:39)
[2021-08-11] MEDS: Atorvastatin Calcium 10 MG Tablet PO (22:01)
[2021-08-12] VITALS (18 sets, daily range): BP systolic 111–129; BP diastolic 55–78; PULSE 44–63; RESP 18–20; TEMP 36.5–36.7; O2SAT 86–94
--- NOTE | 2021-08-12 00:55 | CPS ---
placed pt on High Flow nasal cannula.
[2021-08-12 06:42] LABS: Absolute Lymphocyte Count 1.55 X10^3/uL (0.83-4.51); Basophil# 0.01 X10^3/uL; Basophil% 0.1 % (0-1); Eosinophil# 0.01 X10^3/uL; Eosinophils% 0.1 % (0-5); Hematocrit 38.5 % (37-47); Hemoglobin 13.3 g/dL (12.0-15.0); Lymphocyte # 1.55 X10^3/ul (0.83-4.51); Lymphocyte % 22.4 % (19-41); Mean Corp Hgb Conc 34.5 g/dL (32-36); Mean Corpuscular Hgb 29.4 pg (27.0-32.0); Mean Corpuscular Volume 85.2 fL (81-99); Mean Platelet Vol. 9.6 fl (6.2-12.0); Monocyte# 0.31 X10^3/uL; Monocyte% 4.5 % (0-10); NRBC Flagged by Analyzer 0 % (0-5); Neutrophil # 4.97 X10^3/uL (2.7-7.7); Neutrophil % 71.9 % (47-70); POSITIVE MORPHOLOGY YES; Platelet Count 246 K/mm3 (150-450); RBC Distribution Width CV 14.9 % (11.6-14.6); RBC Distribution Width SD 46.4 fl (35.1-43.9); Red Blood Count 4.52 M/mm3 (4.2-5.4); White Blood Count 6.9 K/mm3 (4.4-11.0)
[2021-08-12 07:01] LABS: Differential Indicated SCAN CRITERIA MET
[2021-08-12 07:08] LABS: Anion Gap 7 (5-15); BUN 26 mg/dL (7-18); Calcium,Total 8.9 mg/dL (8.5-10.1); Chloride 101 mmol/L (98-107); Creatinine, Serum 0.76 mg/dL (0.55-1.02); EST Glomerular Filtration Rate 78 mL/min (>60); Est Glom Filt Rate - Afr Amer 95 mL/min (>60); Estimated Creatinine Clearance 41.33 ml/min; Glucose 87 mg/dL (74-106); Magnesium 1.9 mg/dL (1.6-2.6); Potassium 3.8 mmol/L (3.5-5.1); Sodium Level 136 mmol/L (136-145)
[2021-08-12 07:17] LABS: Atypical Lymphocyte 1+ %
--- NOTE | 2021-08-12 07:31 | PCM.PN.HOSP ---
Subjective Subjective Patient seen appears to be improving clinically however still requires significant amount of oxygen currently on 8 L via nasal cannula Objective Data Objective Data Vital Signs: Vital Signs Temp Pulse Resp BP Pulse Ox 97.7 F L 49 L 20 H 111/58 L 93 08/12/21 02:58 08/12/21 05:58 08/12/21 02:58 08/12/21 02:58 08/12/21 03:17 Oxygen Flow Rate (L/min) [ 6 AMBULATING with Oxygen #2] Oxygen Flow Rate (L/min) [ 3 AMBULATING with Oxygen #1] Oxygen Flow Rate (L/min) 8 Oxygen Delivery Method Nasal Cannula Weight: 100.244 kg Body Mass Index (BMI) 36.8 Intake & Output: Intake and Output for Last 24 Hours 08/10/21 08/11/21 08/12/21 23:59 23:59 23:59 Intake Total 350 / 450 1087.5 / 1327.5 240 / 240 Balance 350 / 450 1087.5 / 1327.5 240 / 240 Lab / Micro Data Result Diagrams: 08/12/21 06:22 08/12/21 06:22 Labs: Laboratory Results - last 24 hr 08/12/21 06:22: WBC 6.9, RBC 4.52, Hgb 13.3, Hct 38.5, MCV 85.2, MCH 29.4, MCHC 34.5, RDW Std Deviation 46.4 H, RDW Coeff of Wallace 14.9 H, Plt Count 246, MPV 9.6, Immature Gran % (Auto) 1.000 H, Neut % (Auto) 71.9 H, Lymph % (Auto) 22.4, [place] % (Auto) 4.5, Eos % (Auto) 0.1, Baso % (Auto) 0.1, Absolute Neuts (auto) 5.0, Absolute Lymphs (auto) 1.55, Nucleated RBC % 0, Atypical Lymphocytes 1+ 08/12/21 06:22: Sodium 136, Potassium 3.8, Chloride 101, Carbon Dioxide 28.0, Anion Gap 7, BUN 26 H, Creatinine 0.76, Estim Creat Clear Calc 41.33, Est GFR (MDRD) Af Amer 95, Est GFR (MDRD) Non-Af 78, BUN/Creatinine Ratio 34.0 H, Glucose 87, Calcium 8.9, Magnesium 1.9 Micro: Microbiology 08/10/21 09:04 Urine, Clean Catch Urine Culture - Final Mixed Gram Pos & Gram Neg Org 08/08/21 01:59 Mucosa - Nasopharyngeal Influenza Types A,B Direct FA (POPPY) - Final 08/08/21 01:39 Nasal Secretion SARS-CoV-2 Antigen (Rapid) - Final SARS-CoV-2 (COVID 19) Physical Exam Narrative GENERAL: Appears ill looking HEENT: Atraumatic; EYES; Anicteric, Normal Conjunctiva NECK; supple, normal thyroid, RESPIRATORY: Diminished to auscultation CARDIOVASCULAR: Regular S1 S2, GI: soft, normoactive bowel sounds, : No Renal angle tenderness; EXTREMITIES: No edema, no clubbing, MUSCULOSKELETAL: no muscle waisting NEURO: Awake; no lateralizing signs. SKIN: No Rash PSYCH; Flat affect Assessment & Plan Assessment/Plan (1) Acute hypoxemic respiratory failure: (2) Debility: PLAN: Patient is a 76-year-old lady unvaccinated against COVID-19 who presented with a 1 week history of fever cough and shortness of breath. CT of the chest obtained on admission demonstrated diffuse patchy groundglass airspace disease compatible with COVID-19 which was confirmed with a positive assay 1. Acute hypoxic respiratory failure ?Secondary to SARS-CoV-2 pneumonia. Admitted to regular nursing floor managed with supplemental oxygen in addition to Decadron and remdesivir -08/12/2021 patient seen appears to be improving clinically however still requires significant amount of oxygen currently on 8 L via nasal cannula 2. Hypertension - Blood pressure controlled, home medications continued with dose adjustment as needed 3. Dyslipidemia -Patient is on statin therapy, continued at home dose 4. Hypokalemia ?Corrected per protocol repeat labs ordered 5. GERD ?Patient is on PPI did continue 6. Obesity with BMI of 36.8 ?Weight loss advised 7. Physical deconditioning - Requested for PT OT eval and social media editor to assist with discharge planning 8. DVT prophylaxis ?Lovenox 30 mg SC twice daily Charges/Coding Visit Charges Inpatient E&M: 59842 Subs Hosp L2
[2021-08-12] MEDS: Losartan Potassium 25 MG Tablet PO (09:48)
[2021-08-12] MEDS: dexAMETHasone 4 MG Tablet 6 MG PO (09:49)
[2021-08-12] MEDS: hydroCHLOROthiazide 12.5mg 12.5 MG PO (09:49)
[2021-08-12] MEDS: Enoxaparin 30 MG/0.3 ML Syringe SC ×2 (09:50→22:48)
[2021-08-12] MEDS: amLODIPine 5 MG Tablet PO (09:50)
[2021-08-12] MEDS: Atenolol 100 MG Tablet PO (09:51)
[2021-08-12] MEDS: Cholecalciferol (VIT D3) 25 MCG TABLET (1,000 UNITS) PO (09:51)
[2021-08-12] MEDS: Montelukast 10 MG Tablet PO (15:11)
[2021-08-12] MEDS: Atorvastatin Calcium 10 MG Tablet PO (22:48)
[2021-08-12] MEDS: Benzonatate 100 MG Capsule PO (22:55)
[2021-08-13] VITALS (12 sets, daily range): BP systolic 103–123; BP diastolic 53–64; PULSE 46–62; RESP 18–20; TEMP 36.4–36.6; O2SAT 85–96
[2021-08-13] MEDS: Nystatin Powder 15gm Bottle 1 APPLIC TOPICAL ×2 (05:25→21:55)
--- NOTE | 2021-08-13 07:04 | PCM.PN.HOSP ---
Subjective Subjective Patient seen appears clinically stable. Plans for patient to be assessed for appropriateness for discharge home with a 6-minute walk Objective Data Objective Data Vital Signs: Vital Signs Temp Pulse Resp BP Pulse Ox 97.7 F L 55 L 18 123/61 H 94 08/13/21 05:26 08/13/21 05:26 08/13/21 05:26 08/13/21 05:26 08/13/21 05:26 Oxygen Flow Rate (L/min) [At 4 REST with Oxygen] Oxygen Flow Rate (L/min) [ 6 AMBULATING with Oxygen #2] Oxygen Flow Rate (L/min) [ 3 AMBULATING with Oxygen #1] Oxygen Flow Rate (L/min) 6 Oxygen Delivery Method Nasal Cannula Weight: 100.244 kg Body Mass Index (BMI) 36.8 Intake & Output: Intake and Output for Last 24 Hours 08/11/21 08/12/21 08/13/21 23:59 23:59 23:59 Intake Total 1087.5 / 1327.5 490 / 490 0 / 0 Balance 1087.5 / 1327.5 490 / 490 0 / 0 Lab / Micro Data Result Diagrams: 08/13/21 06:45 08/13/21 06:45 Labs: Laboratory Results - last 24 hr 08/12/21 06:22: Atypical Lymphocytes 1+ 08/12/21 06:22: Sodium 136, Potassium 3.8, Chloride 101, Carbon Dioxide 28.0, Anion Gap 7, BUN 26 H, Creatinine 0.76, Estim Creat Clear Calc 41.33, Est GFR (MDRD) Af Amer 95, Est GFR (MDRD) Non-Af 78, BUN/Creatinine Ratio 34.0 H, Glucose 87, Calcium 8.9, Magnesium 1.9 Micro: Microbiology 08/10/21 09:04 Urine, Clean Catch Urine Culture - Final Mixed Gram Pos & Gram Neg Org 08/08/21 01:59 Mucosa - Nasopharyngeal Influenza Types A,B Direct FA (POPPY) - Final 08/08/21 01:39 Nasal Secretion SARS-CoV-2 Antigen (Rapid) - Final SARS-CoV-2 (COVID 19) Physical Exam Narrative GENERAL: Appears ill looking HEENT: Atraumatic; EYES; Anicteric, Normal Conjunctiva NECK; supple, normal thyroid, RESPIRATORY: Diminished to auscultation CARDIOVASCULAR: Regular S1 S2, GI: soft, normoactive bowel sounds, : No Renal angle tenderness; EXTREMITIES: No edema, no clubbing, MUSCULOSKELETAL: no muscle waisting NEURO: Awake; no lateralizing signs. SKIN: No Rash PSYCH; Flat affect Assessment & Plan Assessment/Plan (1) Acute hypoxemic respiratory failure: (2) Debility: PLAN: Patient is a 76-year-old lady unvaccinated against COVID-19 who presented with a 1 week history of fever cough and shortness of breath. CT of the chest obtained on admission demonstrated diffuse patchy groundglass airspace disease compatible with COVID-19 which was confirmed with a positive assay 1. Acute hypoxic respiratory failure ?Secondary to SARS-CoV-2 pneumonia. Admitted to regular nursing floor managed with supplemental oxygen in addition to Decadron and remdesivir -08/12/2021 patient seen appears to be improving clinically however still requires significant amount of oxygen currently on 8 L via nasal cannula -08/13/2021 sent patient seen appears clinically stable. Plans for patient to be assessed for appropriateness for discharge home with a 6-minute walk 2. Hypertension - Blood pressure controlled, home medications continued with dose adjustment as needed 3. Dyslipidemia -Patient is on statin therapy, continued at home dose 4. Hypokalemia ?Corrected per protocol repeat labs ordered 5. GERD ?Patient is on PPI did continue 6. Obesity with BMI of 36.8 ?Weight loss advised 7. Physical deconditioning - Requested for PT OT eval and health care social worker to assist with discharge planning 8. DVT prophylaxis ?Lovenox 30 mg SC twice daily Charges/Coding Visit Charges Inpatient E&M: 04164 Subs Hosp L2
[2021-08-13 07:28] LABS: Absolute Neutrophil Count 4.1 X10^3/uL (2.0-7.7); Basophil# 0.01 X10^3/uL; Basophil% 0.2 % (0-1); Eosinophil# 0.01 X10^3/uL; Eosinophils% 0.2 % (0-5); Hematocrit 39.7 % (37-47); Hemoglobin 13.1 g/dL (12.0-15.0); Lymphocyte % 22.3 % (19-41); Mean Corpuscular Hgb 28.4 pg (27.0-32.0); Mean Corpuscular Volume 86.1 fL (81-99); Mean Platelet Vol. 9.8 fl (6.2-12.0); Monocyte% 5.1 % (0-10); NRBC Flagged by Analyzer 0 % (0-5); Neutrophil # 4.13 X10^3/uL (2.7-7.7); Neutrophil % 70.8 % (47-70); Platelet Count 263 K/mm3 (150-450); RBC Distribution Width CV 14.7 % (11.6-14.6); RBC Distribution Width SD 46.6 fl (35.1-43.9); Red Blood Count 4.61 M/mm3 (4.2-5.4); White Blood Count 5.8 K/mm3 (4.4-11.0)
[2021-08-13 07:59] LABS: Anion Gap 7 (5-15); BUN 23 mg/dL (7-18); BUN/Creat Ratio 30.4 RATIO (10-20); Calcium,Total 9.2 mg/dL (8.5-10.1); Chloride 100 mmol/L (98-107); Creatinine, Serum 0.76 mg/dL (0.55-1.02); EST Glomerular Filtration Rate 79 mL/min (>60); Est Glom Filt Rate - Afr Amer 96 mL/min (>60); Estimated Creatinine Clearance 41.33 ml/min; Glucose 89 mg/dL (74-106); Potassium 3.9 mmol/L (3.5-5.1); Sodium Level 136 mmol/L (136-145)
--- NOTE | 2021-08-13 10:03 | PCM.DC.SUM ---
Providers Date of Admission: 08/08/21 Primary Care Physician: Yaniv Wiseman, UNIT AIDE TECH-C Reason For Visit: ACUTE HYPOXEMIC RESPIRATORY FAILURE Diagnosis Discharge Diagnosis (1) Acute hypoxemic respiratory failure: Status: Acute Code(s): J96.01 - Acute respiratory failure with hypoxia (2) Debility: Status: Acute Code(s): R53.81 - Other malaise Medications at Discharge Home Medications amlodipine 5 mg PO DAILY 10/23/15 atenolol 100 mg PO DAILY 10/23/15 omeprazole 20 mg PO DAILY PRN PRN 10/23/15 montelukast 10 mg PO DAILY@1700 #90 tab 09/10/17 acetaminophen 1,000 mg PO Q8 PRN 08/08/21 cholecalciferol (vitamin D3) [Vitamin D3] 25 mcg PO DAILY 08/08/21 losartan-hydrochlorothiazide 1 tab PO DAILY 08/08/21 lovastatin 40 mg PO DAILY 08/08/21 red yeast rice 600 mg PO DAILY 08/08/21 dexamethasone 6 mg PO DAILY #5 tab 08/13/21 Hospital Course Summary of Care Provided Minutes Spent on Discharge: 35 Hospital Course: Patient is a 76-year-old lady unvaccinated against COVID-19 who presented with a 1 week history of fever cough and shortness of breath. CT of the chest obtained on admission demonstrated diffuse patchy groundglass airspace disease compatible with COVID-19 which was confirmed with a positive assay 1. Acute hypoxic respiratory failure ?Secondary to SARS-CoV-2 pneumonia. Admitted to regular nursing floor managed with supplemental oxygen in addition to Decadron and remdesivir -08/12/2021 patient seen appears to be improving clinically however still requires significant amount of oxygen currently on 8 L via nasal cannula -08/13/2021 sent patient seen appears clinically stable. Patient was assessed for home oxygen which she did qualify she would need portability since he is mobile both at home as well as in the community 2. Hypertension - Blood pressure controlled, home medications continued with dose adjustment as needed 3. Dyslipidemia -Patient is on statin therapy, continued at home dose 4. Hypokalemia ?Corrected per protocol repeat labs ordered 5. GERD ?Patient is on PPI did continue 6. Obesity with BMI of 36.8 ?Weight loss advised 7. Physical deconditioning - Requested for PT OT eval and director of social media marketing to assist with discharge planning 8. DVT prophylaxis ?Lovenox 30 mg SC twice daily Physical Exam Narrative GENERAL: Appears comfortable at rest HEENT: Atraumatic; EYES; Anicteric, Normal Conjunctiva NECK; supple, normal thyroid, RESPIRATORY: Diminished to auscultation CARDIOVASCULAR: Regular S1 S2, GI: soft, normoactive bowel sounds, : No Renal angle tenderness; EXTREMITIES: No edema, no clubbing, MUSCULOSKELETAL: no muscle waisting NEURO: Awake; no lateralizing signs. SKIN: No Rash PSYCH; Flat affect Weight / BMI Weight Weight: 100.244 kg Body Mass Index (BMI) 36.8 ABG / Lab / Microbiology Data Result Diagrams: 08/13/21 06:45 08/13/21 06:45 Laboratory: Laboratory Results - last 24 hr 08/13/21 06:45: WBC 5.8, RBC 4.61, Hgb 13.1, Hct 39.7, MCV 86.1, MCH 28.4, MCHC 33.0, RDW Std Deviation 46.6 H, RDW Coeff of Wallace 14.7 H, Plt Count 263, MPV 9.8, Immature Gran % (Auto) 1.400 H, Neut % (Auto) 70.8 H, Lymph % (Auto) 22.3, [place] % (Auto) 5.1, Eos % (Auto) 0.2, Baso % (Auto) 0.2, Absolute Neuts (auto) 4.1, Absolute Lymphs (auto) 1.30, Nucleated RBC % 0 08/13/21 06:45: Sodium 136, Potassium 3.9, Chloride 100, Carbon Dioxide 29.0, Anion Gap 7, BUN 23 H, Creatinine 0.76, Estim Creat Clear Calc 41.33, Est GFR (MDRD) Af Amer 96, Est GFR (MDRD) Non-Af 79, BUN/Creatinine Ratio 30.4 H, Glucose 89, Calcium 9.2 Microbiology: Microbiology 08/08/21 02:54 Blood Culture (Wb) - Anticubital Left Blood Culture - Final No growth in 5 days. 08/08/21 01:39 Blood Culture (Wb) - Anticubital Right Blood Culture - Final No growth in 5 days. 08/10/21 09:04 Urine, Clean Catch Urine Culture - Final Mixed Gram Pos & Gram Neg Org 08/08/21 01:59 Mucosa - Nasopharyngeal Influenza Types A,B Direct FA (POPPY) - Final 08/08/21 01:39 Nasal Secretion SARS-CoV-2 Antigen (Rapid) - Final SARS-CoV-2 (COVID 19) D/C Instructions Discharge Diet: No restrictions Discharge Activity: Return to Normal Activity Call your doctor if you observe: Fever of 101 or Higher, Shortness of breath, Fainting spells and Chest pain Meaningful Use Info Meaningful Use Diagnoses (Choose all that apply): None applicable Discharge Plan Admission Admit Date/Time: 08/08/21 06:00 Attending Provider: Otis Barriga Primary Care Provider: Yaniv Wiseman UNIT AIDE TECH Instructions Patient Instructions: Coronavirus Disease 2019 (COVID-19): Overview, Coronavirus Disease 2019 (COVID-19): Prevention, COVID-19: Lying in a Prone Position (Proning), Preventing the Spread of Infection Understanding Isolation Procedures, Disinfecting Your Home of COVID-19 Discharge Orders/Prescriptions Prescriptions: New dexamethasone 4 mg Tablet 6 mg PO DAILY Qty: 5 RF: 0 Continued atenolol 100 MG tablet 100 mg PO DAILY RF: 0 amlodipine 5 MG tablet 5 mg PO DAILY RF: 0 omeprazole 20 MG capsule 20 mg PO DAILY PRN PRN (Reason: Heartburn) RF: 0 montelukast 10 MG tablet 10 mg PO DAILY@1700 Qty: 90 RF: 0 lovastatin 40 mg tablet 40 mg PO DAILY RF: 0 losartan-hydrochlorothiazide 50-12.5 mg tablet 1 tab PO DAILY RF: 0 cholecalciferol (vitamin D3) [Vitamin D3] 25 mcg (1,000 unit) Capsule 25 mcg PO DAILY RF: 0 red yeast rice 600 mg capsule 600 mg PO DAILY RF: 0 acetaminophen 500 MG tablet 1,000 mg PO Q8 PRN (Reason: Pain, Mild) RF: 0 Referrals / Follow Up: Yaniv Wiseman NP, UNIT AIDE TECH-C [Primary Care Provider] - Disposition Disposition (needs filled in before D/C Order can be placed): Home Health Service Charges/Coding Visit Charges Inpatient E&M: 32794 Disch Hosp
[2021-08-13] MEDS: dexAMETHasone 4 MG Tablet 6 MG PO (10:09)
[2021-08-13] MEDS: Enoxaparin 30 MG/0.3 ML Syringe SC ×2 (10:09→21:54)
[2021-08-13] MEDS: Cholecalciferol (VIT D3) 25 MCG TABLET (1,000 UNITS) PO (10:10)
--- NOTE | 2021-08-13 12:01 | PHA.DC.MC ---
Pharmacy Service has performed discharge medication reconciliation and counseling for this patient. 1. DEXAMETHASONE 6MG PO DAILY X 3 DAYS The patient's discharge medication list was reviewed for discrepancies and discrepancies were resolved. Prescription sent to [facility]'s pharmacy but patient would like medication filled and delivered with [facility]. This [facility] spoke to Keke in retail and asked if she could call and get prescription transferred. She verbalized understanding. Called and spoke to Megan on [employer] to update to update nurse about new pharmacy but nurse was unavailable. Message left with Megan. Home Medications amlodipine 5 mg PO DAILY 10/23/15 atenolol 100 mg PO DAILY 10/23/15 omeprazole 20 mg PO DAILY PRN PRN 10/23/15 montelukast 10 mg PO DAILY@1700 #90 tab 09/10/17 acetaminophen 1,000 mg PO Q8 PRN 08/08/21 cholecalciferol (vitamin D3) [Vitamin D3] 25 mcg PO DAILY 08/08/21 losartan-hydrochlorothiazide 1 tab PO DAILY 08/08/21 lovastatin 40 mg PO DAILY 08/08/21 red yeast rice 600 mg PO DAILY 08/08/21 dexamethasone 6 mg PO DAILY #5 tab 08/13/21 The patient was counseled on the following discharge medications and changes in medications for homegoing were reviewed. The Reason for Use, instructions for use, and potential side effects were reviewed for all new medications. The patient's questions regarding all of their medications were answered. The patient was able to verbally demonstrate an understanding of their discharge medications.
[2021-08-13] MEDS: Montelukast 10 MG Tablet PO (17:45)
[2021-08-13] MEDS: Benzonatate 100 MG Capsule PO (21:54)
[2021-08-13] MEDS: guaiFENesin 1,200 MG Tablet 1200 MG PO (21:54)
[2021-08-13] MEDS: Atorvastatin Calcium 10 MG Tablet PO (21:55)
[2021-08-14] VITALS (14 sets, daily range): BP systolic 110–138; BP diastolic 51–78; PULSE 45–66; RESP 18; TEMP 36.4–36.7; O2SAT 94–95
[2021-08-14 06:35] LABS: Absolute Lymphocyte Count 1.26 X10^3/uL (0.83-4.51); Absolute Neutrophil Count 5.2 X10^3/uL (2.0-7.7); Basophil# 0.01 X10^3/uL; Basophil% 0.1 % (0-1); Eosinophil# 0.02 X10^3/uL; Eosinophils% 0.3 % (0-5); Hematocrit 39.3 % (37-47); Lymphocyte # 1.26 X10^3/ul (0.83-4.51); Lymphocyte % 17.9 % (19-41); Mean Corp Hgb Conc 33.1 g/dL (32-36); Mean Corpuscular Hgb 28.6 pg (27.0-32.0); Mean Corpuscular Volume 86.6 fL (81-99); Mean Platelet Vol. 9.9 fl (6.2-12.0); Monocyte# 0.39 X10^3/uL; Monocyte% 5.5 % (0-10); NRBC Flagged by Analyzer 0 % (0-5); Neutrophil % 74.1 % (47-70); Platelet Count 280 K/mm3 (150-450); RBC Distribution Width CV 14.6 % (11.6-14.6); RBC Distribution Width SD 46.6 fl (35.1-43.9); Red Blood Count 4.54 M/mm3 (4.2-5.4)
[2021-08-14 07:03] LABS: Anion Gap 8 (5-15); BUN 23 mg/dL (7-18); BUN/Creat Ratio 29.4 RATIO (10-20); Calcium,Total 8.9 mg/dL (8.5-10.1); Chloride 102 mmol/L (98-107); Creatinine, Serum 0.78 mg/dL (0.55-1.02); EST Glomerular Filtration Rate 76 mL/min (>60); Est Glom Filt Rate - Afr Amer 92 mL/min (>60); Estimated Creatinine Clearance 41.33 ml/min; Glucose 96 mg/dL (74-106); Potassium 4.1 mmol/L (3.5-5.1); Sodium Level 137 mmol/L (136-145)
[2021-08-14] MEDS: 0.9% Saline Lock 10 ML Syringe IV (08:54)
[2021-08-14] MEDS: Enoxaparin 30 MG/0.3 ML Syringe SC ×2 (08:54→21:41)
[2021-08-14] MEDS: Benzonatate 100 MG Capsule PO (08:54)
[2021-08-14] MEDS: Furosemide 20 MG/2 ML VIAL IV (08:55)
[2021-08-14] MEDS: dexAMETHasone 4 MG Tablet 6 MG PO (08:55)
[2021-08-14] MEDS: guaiFENesin 1,200 MG Tablet 1200 MG PO ×2 (08:55→21:41)
[2021-08-14] MEDS: Cholecalciferol (VIT D3) 25 MCG TABLET (1,000 UNITS) PO (08:56)
[2021-08-14] MEDS: Nystatin Powder 15gm Bottle 1 APPLIC TOPICAL ×2 (08:57→21:41)
[2021-08-14] MEDS: amLODIPine 5 MG Tablet PO (08:59)
[2021-08-14] MEDS: hydroCHLOROthiazide 12.5mg 12.5 MG PO (08:59)
[2021-08-14] MEDS: Losartan Potassium 25 MG Tablet PO (08:59)
[2021-08-14] MEDS: Atenolol 100 MG Tablet PO (08:59)
--- NOTE | 2021-08-14 11:35 | PCM.PN.HOSP ---
Subjective Subjective Was planning for discharge yesterday however with ambulation she required over 6 L we will trial a dose of Lasix today Objective Data Objective Data Vital Signs: Vital Signs Temp Pulse Resp BP Pulse Ox 97.5 F L 56 L 18 117/72 94 08/14/21 09:00 08/14/21 09:00 08/14/21 09:00 08/14/21 09:00 08/14/21 10:00 Oxygen Flow Rate (L/min) [At 4 REST with Oxygen] Oxygen Flow Rate (L/min) [ 6 AMBULATING with Oxygen #2] Oxygen Flow Rate (L/min) [ 4 AMBULATING with Oxygen #1] Oxygen Flow Rate (L/min) 6 Oxygen Delivery Method Nasal Cannula Weight: 221 lb Body Mass Index (BMI) 36.8 Intake & Output: Intake and Output for Last 24 Hours 08/13/21 08/14/21 08/15/21 03:59 03:59 03:59 Intake Total 250 / 250 0 / 0 Balance 250 / 250 0 / 0 Lab / Micro Data Result Diagrams: 08/14/21 05:56 08/14/21 05:56 Labs: Laboratory Results - last 24 hr 08/14/21 05:56: WBC 7.0, RBC 4.54, Hgb 13.0, Hct 39.3, MCV 86.6, MCH 28.6, MCHC 33.1, RDW Std Deviation 46.6 H, RDW Coeff of Wallace 14.6, Plt Count 280, MPV 9.9, Immature Gran % (Auto) 2.100 H, Neut % (Auto) 74.1 H, Lymph % (Auto) 17.9 L, [place] % (Auto) 5.5, Eos % (Auto) 0.3, Baso % (Auto) 0.1, Absolute Neuts (auto) 5.2, Absolute Lymphs (auto) 1.26, Nucleated RBC % 0 08/14/21 05:56: Sodium 137, Potassium 4.1, Chloride 102, Carbon Dioxide 27.0, Anion Gap 8, BUN 23 H, Creatinine 0.78, Estim Creat Clear Calc 41.33, Est GFR (MDRD) Af Amer 92, Est GFR (MDRD) Non-Af 76, BUN/Creatinine Ratio 29.4 H, Glucose 96, Calcium 8.9 Micro: Microbiology 08/08/21 02:54 Blood Culture (Wb) - Anticubital Left Blood Culture - Final No growth in 5 days. 08/08/21 01:39 Blood Culture (Wb) - Anticubital Right Blood Culture - Final No growth in 5 days. 08/10/21 09:04 Urine, Clean Catch Urine Culture - Final Mixed Gram Pos & Gram Neg Org 08/08/21 01:59 Mucosa - Nasopharyngeal Influenza Types A,B Direct FA (POPPY) - Final 08/08/21 01:39 Nasal Secretion SARS-CoV-2 Antigen (Rapid) - Final SARS-CoV-2 (COVID 19) Physical Exam Const alert, oriented x3 and no apparent distress General Appearance: cooperative HEENT normocephalic and moist oral mucous membranes Eyes PERRL, EOMs intact bilaterally and conjunctivae normal Neck supple and no JVD Resp normal respiratory effort, no retractions and no use of accessory muscles Auscultation: crackles and diminished lung sounds; Negative for rales, rhonchi or wheezes Cardio regular rate, regular rhythm, S1 normal heart sound, S2 normal heart sound and no murmurs GI soft to palpation, non-tender and non-distended; Negative for hepatosplenomegaly Extremity no clubbing, cyanosis or edema Skin no rashes or lesions noted Neuro no focal motor deficits and no sensory deficits noted Psych affect normal Appearance: appropriate Assessment & Plan Assessment/Plan (1) Acute hypoxemic respiratory failure: (2) Debility: PLAN: 1. Acute hypoxic respiratory failure ?Secondary to SARS-CoV-2 pneumonia. Admitted to regular nursing floor managed with supplemental oxygen in addition to Decadron and remdesivir -08/12/2021 patient seen appears to be improving clinically however still requires significant amount of oxygen currently on 8 L via nasal cannula -08/13/2021 sent patient seen appears clinically stable. Plans for patient to be assessed for appropriateness for discharge home with a 6-minute walk 08/14/2021: We will trial her on some Lasix as she failed her 6-minute walk test yesterday. We will plan to repeat ambulatory pulse ox tomorrow. 2. Hypertension - Blood pressure controlled, home medications continued with dose adjustment as needed 3. Dyslipidemia -Patient is on statin therapy, continued at home dose 4. Hypokalemia ?Corrected per protocol repeat labs ordered 5. GERD ?Patient is on PPI did continue 6. Obesity with BMI of 36.8 ?Weight loss advised 7. Physical deconditioning - Requested for PT OT eval and social worker psychiatric to assist with discharge planning DVT: Lovenox Charges/Coding Visit Charges Inpatient E&M: 69807 Subs Hosp L2
[2021-08-14] MEDS: Montelukast 10 MG Tablet PO (14:46)
[2021-08-14] MEDS: Atorvastatin Calcium 10 MG Tablet PO (21:41)
[2021-08-15] VITALS (11 sets, daily range): BP systolic 114–125; BP diastolic 52–60; PULSE 43–54; RESP 18; TEMP 36.4–36.6; O2SAT 87–95
[2021-08-15 08:19] LABS: Absolute Lymphocyte Count 1.56 X10^3/uL (0.83-4.51); Absolute Neutrophil Count 7.1 X10^3/uL (2.0-7.7); Basophil# 0.02 X10^3/uL; Basophil% 0.2 % (0-1); Eosinophil# 0.01 X10^3/uL; Eosinophils% 0.1 % (0-5); Hematocrit 44.3 % (37-47); Hemoglobin 14.6 g/dL (12.0-15.0); Lymphocyte # 1.56 X10^3/ul (0.83-4.51); Lymphocyte % 16.4 % (19-41); Mean Corpuscular Hgb 28.7 pg (27.0-32.0); Mean Corpuscular Volume 87.2 fL (81-99); Mean Platelet Vol. 9.7 fl (6.2-12.0); Monocyte# 0.53 X10^3/uL; Monocyte% 5.6 % (0-10); NRBC Flagged by Analyzer 0 % (0-5); Neutrophil # 7.07 X10^3/uL (2.7-7.7); Neutrophil % 74.1 % (47-70); Platelet Count 346 K/mm3 (150-450); RBC Distribution Width CV 14.8 % (11.6-14.6); RBC Distribution Width SD 47.5 fl (35.1-43.9); Red Blood Count 5.08 M/mm3 (4.2-5.4); White Blood Count 9.5 K/mm3 (4.4-11.0)
[2021-08-15] MEDS: hydroCHLOROthiazide 12.5mg 12.5 MG PO (08:38)
[2021-08-15] MEDS: Atenolol 100 MG Tablet PO (08:38)
[2021-08-15] MEDS: amLODIPine 5 MG Tablet PO (08:38)
[2021-08-15] MEDS: Losartan Potassium 25 MG Tablet PO (08:38)
[2021-08-15] MEDS: Nystatin Powder 15gm Bottle 1 APPLIC TOPICAL (08:39)
[2021-08-15 08:40] LABS: Anion Gap 5 (5-15); BUN 29 mg/dL (7-18); BUN/Creat Ratio 31.9 RATIO (10-20); Calcium,Total 9.6 mg/dL (8.5-10.1); Chloride 99 mmol/L (98-107); Creatinine, Serum 0.91 mg/dL (0.55-1.02); EST Glomerular Filtration Rate 64 mL/min (>60); Est Glom Filt Rate - Afr Amer 77 mL/min (>60); Estimated Creatinine Clearance 45.42 ml/min; Glucose 85 mg/dL (74-106); Potassium 4.2 mmol/L (3.5-5.1); Sodium Level 136 mmol/L (136-145)
[2021-08-15] MEDS: guaiFENesin 1,200 MG Tablet 1200 MG PO (08:40)
[2021-08-15] MEDS: Enoxaparin 30 MG/0.3 ML Syringe SC (08:40)
[2021-08-15] MEDS: dexAMETHasone 4 MG Tablet 6 MG PO (08:40)
[2021-08-15] MEDS: Cholecalciferol (VIT D3) 25 MCG TABLET (1,000 UNITS) PO (08:41)
[2021-08-15] MEDS: 0.9% Saline Lock 10 ML Syringe IV (11:13)
[2021-08-15] MEDS: Furosemide 20 MG/2 ML VIAL IV (11:13)
--- NOTE | 2021-08-15 12:50 | PCM.DC ---
Discharge Instructions Diet Discharge Diet: No restrictions Activity Discharge Activity: Return to Normal Activity Dressing / Incision Call your doctor if you observe: Fever of 101 or Higher, Shortness of breath, Fainting spells and Chest pain Follow Up Care Test Results: Test results from this visit will be discussed in further detail at your follow-up appointment, if applicable. Discharge Plan Admission Admit Date/Time: 08/08/21 06:00 Attending Provider: Angel Price Primary Care Provider: Yaniv Wiseman NP Instructions Patient Instructions: Coronavirus Disease 2019 (COVID-19): Overview, Coronavirus Disease 2019 (COVID-19): Prevention, COVID-19: Lying in a Prone Position (Proning), Preventing the Spread of Infection Understanding Isolation Procedures, Disinfecting Your Home of COVID-19 Discharge Orders/Prescriptions Prescriptions: New dexamethasone 2 mg tablet 6 mg PO DAILY 3 Days Qty: 9 RF: 0 Continued atenolol 100 MG tablet 100 mg PO DAILY RF: 0 amlodipine 5 MG tablet 5 mg PO DAILY RF: 0 omeprazole 20 MG capsule 20 mg PO DAILY PRN PRN (Reason: Heartburn) RF: 0 montelukast 10 MG tablet 10 mg PO DAILY@1700 Qty: 90 RF: 0 lovastatin 40 mg tablet 40 mg PO DAILY RF: 0 losartan-hydrochlorothiazide 50-12.5 mg tablet 1 tab PO DAILY RF: 0 cholecalciferol (vitamin D3) [Vitamin D3] 25 mcg (1,000 unit) Capsule 25 mcg PO DAILY RF: 0 red yeast rice 600 mg capsule 600 mg PO DAILY RF: 0 acetaminophen 500 MG tablet 1,000 mg PO Q8 PRN (Reason: Pain, Mild) RF: 0 Referrals / Follow Up: Yaniv Wiseman NP, [employer] [Primary Care Provider] - Disposition Disposition (needs filled in before D/C Order can be placed): Home Health Service
--- NOTE | 2021-08-15 12:54 | PCM.DC.SUM ---
Providers Date of Admission: 08/08/21 Primary Care Physician: Yaniv Wiseman, IRIDOLOGIST-C Reason For Visit: ACUTE HYPOXEMIC RESPIRATORY FAILURE Diagnosis Discharge Diagnosis (1) Acute hypoxemic respiratory failure: Status: Acute Code(s): J96.01 - Acute respiratory failure with hypoxia (2) Debility: Status: Acute Code(s): R53.81 - Other malaise Medications at Discharge Home Medications amlodipine 5 mg PO DAILY 10/23/15 atenolol 100 mg PO DAILY 10/23/15 omeprazole 20 mg PO DAILY PRN PRN 10/23/15 montelukast 10 mg PO DAILY@1700 #90 tab 09/10/17 acetaminophen 1,000 mg PO Q8 PRN 08/08/21 cholecalciferol (vitamin D3) [Vitamin D3] 25 mcg PO DAILY 08/08/21 losartan-hydrochlorothiazide 1 tab PO DAILY 08/08/21 lovastatin 40 mg PO DAILY 08/08/21 red yeast rice 600 mg PO DAILY 08/08/21 dexamethasone 6 mg PO DAILY 3 Days #9 tab 08/15/21 Hospital Course Operations None Procedures None Summary of Care Provided Minutes Spent on Discharge: 42 Hospital Course: Per HPI: JAD CHRISTINA, is a 76 F difficult history of hypertension who presents. Reportedly her Covid-like symptoms started about 5 days before presentation. She reports her symptoms as shortness of breath; dry cough; fatigue; anorexia; and weakness. Reportedly patient is too weak to stand or walk. Further, patient's reports subjective fever. She denies chills. Patient is not vaccinated against COVID-19 virus. History is taken predominantly from nephew. Patient is Andrew. Occasionally patient answer some questions in [place] by herself. Hospital Course: 1. Acute hypoxic respiratory failure ?Secondary to SARS-CoV-2 pneumonia. Admitted to regular nursing floor managed with supplemental oxygen in addition to Decadron and remdesivir -08/12/2021 patient seen appears to be improving clinically however still requires significant amount of oxygen currently on 8 L via nasal cannula -08/13/2021 sent patient seen appears clinically stable. Plans for patient to be assessed for appropriateness for discharge home with a 6-minute walk 08/14/2021: We will trial her on some Lasix as she failed her 6-minute walk test yesterday. We will plan to repeat ambulatory pulse ox tomorrow. 08/15/2021: Feels much better today, only requires 5 L nasal cannula for ambulation, She did get a repeat dosing of Lasix this morning as well. Will readjust her Decadron dosing as she received next 2 days dosing here in the hospital. I discussed with her the plan for discharge today and she expressed understanding of the risk and benefits of going home and would like to go home today. 2. Hypertension - Blood pressure controlled, home medications continued with dose adjustment as needed 3. Dyslipidemia -Patient is on statin therapy, continued at home dose 4. Hypokalemia ?Corrected per protocol repeat labs ordered 5. GERD ?Patient is on PPI did continue 6. Obesity with BMI of 36.8 ?Weight loss advised 7. Physical deconditioning - Requested for PT OT eval and group social worker to assist with discharge planning Physical Exam Const alert, oriented x3 and no apparent distress General Appearance: cooperative HEENT normocephalic and moist oral mucous membranes Eyes PERRL, EOMs intact bilaterally and conjunctivae normal Neck supple and no JVD Resp normal respiratory effort, no retractions and no use of accessory muscles Auscultation: crackles and diminished lung sounds; Negative for rales, rhonchi or wheezes Cardio regular rate, regular rhythm, S1 normal heart sound, S2 normal heart sound and no murmurs GI soft to palpation, non-tender and non-distended; Negative for hepatosplenomegaly Extremity no clubbing, cyanosis or edema Skin no rashes or lesions noted Neuro no focal motor deficits and no sensory deficits noted Psych affect normal Appearance: appropriate Weight / BMI Weight Weight: 221 lb Body Mass Index (BMI) 36.8 ABG / Lab / Microbiology Data Result Diagrams: 08/15/21 07:55 08/15/21 07:55 Laboratory: Laboratory Results - last 24 hr 08/15/21 07:55: WBC 9.5, RBC 5.08, Hgb 14.6, Hct 44.3, MCV 87.2, MCH 28.7, MCHC 33.0, RDW Std Deviation 47.5 H, RDW Coeff of Wallace 14.8 H, Plt Count 346, MPV 9.7, Immature Gran % (Auto) 3.600 H, Neut % (Auto) 74.1 H, Lymph % (Auto) 16.4 L, Rutherford % (Auto) 5.6, Eos % (Auto) 0.1, Baso % (Auto) 0.2, Absolute Neuts (auto) 7.1, Absolute Lymphs (auto) 1.56, Nucleated RBC % 0 08/15/21 07:55: Sodium 136, Potassium 4.2, Chloride 99, Carbon Dioxide 32.0, Anion Gap 5, BUN 29 H, Creatinine 0.91, Estim Creat Clear Calc 45.42, Est GFR (MDRD) Af Amer 77, Est GFR (MDRD) Non-Af 64, BUN/Creatinine Ratio 31.9 H, Glucose 85, Calcium 9.6 Microbiology: Microbiology 08/08/21 02:54 Blood Culture (Wb) - Anticubital Left Blood Culture - Final No growth in 5 days. 08/08/21 01:39 Blood Culture (Wb) - Anticubital Right Blood Culture - Final No growth in 5 days. 08/10/21 09:04 Urine, Clean Catch Urine Culture - Final Mixed Gram Pos & Gram Neg Org 08/08/21 01:59 Mucosa - Nasopharyngeal Influenza Types A,B Direct FA (POPPY) - Final 08/08/21 01:39 Nasal Secretion SARS-CoV-2 Antigen (Rapid) - Final SARS-CoV-2 (COVID 19) D/C Instructions Discharge Diet: No restrictions Call your doctor if you observe: Fever of 101 or Higher, Shortness of breath, Fainting spells and Chest pain Meaningful Use Info Meaningful Use Diagnoses (Choose all that apply): None applicable Discharge Plan Admission Admit Date/Time: 08/08/21 06:00 Attending Provider: Angel Price Primary Care Provider: Yaniv Wiseman IRIDOLOGIST Instructions Patient Instructions: Coronavirus Disease 2019 (COVID-19): Overview, Coronavirus Disease 2019 (COVID-19): Prevention, COVID-19: Lying in a Prone Position (Proning), Preventing the Spread of Infection Understanding Isolation Procedures, Disinfecting Your Home of COVID-19 Discharge Orders/Prescriptions Prescriptions: New dexamethasone 2 mg tablet 6 mg PO DAILY 3 Days Qty: 9 RF: 0 Continued atenolol 100 MG tablet 100 mg PO DAILY RF: 0 amlodipine 5 MG tablet 5 mg PO DAILY RF: 0 omeprazole 20 MG capsule 20 mg PO DAILY PRN PRN (Reason: Heartburn) RF: 0 montelukast 10 MG tablet 10 mg PO DAILY@1700 Qty: 90 RF: 0 lovastatin 40 mg tablet 40 mg PO DAILY RF: 0 losartan-hydrochlorothiazide 50-12.5 mg tablet 1 tab PO DAILY RF: 0 cholecalciferol (vitamin D3) [Vitamin D3] 25 mcg (1,000 unit) Capsule 25 mcg PO DAILY RF: 0 red yeast rice 600 mg capsule 600 mg PO DAILY RF: 0 acetaminophen 500 MG tablet 1,000 mg PO Q8 PRN (Reason: Pain, Mild) RF: 0 Referrals / Follow Up: Yaniv Wiseman IRIDOLOGIST, IRIDOLOGIST-C [Primary Care Provider] - Disposition Disposition (needs filled in before D/C Order can be placed): Home Health Service Charges/Coding Visit Charges Inpatient E&M: [id number] Disch Hosp
--- NOTE | 2021-08-15 13:38 | CASEMGMT ---
Pt qualified for home O2, referral faxed to [facility] [place]. TC to [place] to make aware that referral was faxed and portable tank taken from stock.
[2021-08-15] MEDS: Montelukast 10 MG Tablet PO (16:28)
--- NOTE | 2021-08-18 16:43 | CASEMGMT ---
KALI DC F/u Call: DC date: 08/15/21 DC Diagnosis: Covid Pna DC Disposition: Home with home O2 ([employer]) Lace/Strata: 06/26 Called patient listed number, phone answered by patient sister Diana whom is her produce specialist and talks for patient. States patient is doing okay and still gets tired/fatigued easy. States took a shower but then fatigued. Has been napping. Patient O2 sat 95-96% on 4L, has a F/u appointment on 08/25/21. Confirmed picked up her po steroid and today was the last day. Denies any further questions, concerns or issues with [facility], medication, or f/u. KALI Norris
== END 2021-08-15 18:33 | disposition home health service (06) | DRG 177 ==
LOC: ED 02:39 → MS3 06:36
PROVIDERS: Internal Medicine; Admitting Provider Hospitalist; Emergency Provider Emergency Medicine; PCP Nurse Practitioner Family; Visit Provider Family Medicine
DX: U07.1 COVID-19 (principal); J96.01 Acute respiratory failure with hypoxia; J12.82 Pneumonia due to coronavirus disease 2019; E87.6 Hypokalemia; E66.9 Obesity, unspecified; Z68.36 Body mass index [BMI] 36.0-36.9, adult; I10 Essential (primary) hypertension; R53.81 Other malaise; E78.5 Hyperlipidemia, unspecified; I34.1 Nonrheumatic mitral (valve) prolapse; I44.0 Atrioventricular block, first degree; K21.9 Gastro-esophageal reflux disease without esophagitis; Z79.899 Other long term (current) drug therapy
CPT/HCPCS: 36415; 71045; 71275; 80048; 80053; 81001; 83605; 83735; 84145; 84484; 85025; 85610; 85730; 87040; 87086; 87088; 87426; 87804; 93005; 97110; 97162; 97166; 97530; 97535; 99285; J7050; Q9967; A4216; J1940

== ENCOUNTER 2022-07-13 09:30 | Outpatient (RCR) | payer SELFPAY, OTHER ==
--- NOTE | 2022-03-26 10:41 | HP.PTEVAL_ITS ---
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 Date of Evaluation: 03/26/22 Physical Therapist: Laura Sharma DPT - Visit Plan Frequency: 2x /Week Duration: 4 Weeks Plan: Focus on Proprioception, LE and core strength/stabilization and functional mobility. HEP Given IE: Marching, Hip abduction, Hip Extn, Mini Squat, Weight shift/SLS- all at counter for safety- Encouraged to ride stationary bike. - Subjective Patient reports that she has had multiple knee surgeries- she had a hard time getting the strength back in her left knee- she also had back surgery in 2018. She did well with that as well in July 2021 had COVID and was in the hospital 7 days- since then she has not been able to get her strength back. She saw her MD who wanted her to do therapy to get her strength and balance back. She sometimes has dizziness- it comes and goes- she doesn't feel like her head is level. She really has to move so her head does not spin. She lives with her sister and family- does have stairs in the home with railings on both sides and is able to do them. The porch has a ramp so she can use that. She helps with the cooking and cleaning- prior to knee surgeries she worked in the garden but has not been able to since then. She uses a walking stick in the yard, quad cane in the community and at night, but furniture walks during the day. She has not had any falls lately. She is fully I with dressing and bathing. She does have pain in the right LE- since her back surgery- she has pain that radiates to the ankle. She does have some N/T in her feet. Goals: improve balance and strength. She has a large spot on her shoulder that they think is a lipoma and will get it checked out. Sleep: not disturbed. She came home on O2 but she is no longer on it. PMHx/Meds: see list in chart. - Objective Posture: FH, RS- can correct with verbal cues but does not maintain. Gait: quad cane- wide ARACELI- decreased step length and rinku. Transitions: when sit to stand she requires UE A bilateral. When standing she waits 10 seconds prior to moving to get her bearings. Stairs: non recip with 2 HR and SBA for safety. HR/TR: able with UE A and reports uncomfortable due to N/T in her feet. Sensation: diminished to gross touch bilateral. ROM: WFL in all planes. Strength: core: poor, Hip: 4-/5 throughout, Knee: 4/5, Ankle: 4+/5. Flex: HS: moderate, Gastroc: moderate - Balance/Special Test Scores Functional Gait Assessment Score: 10 % Disability: 66.6700 Lower Extremity Functional Score: 20 TUG Test Time Seconds: 27 - Goals Goal 1:: Patient will be I with HEP and progression Goal Time Frame: 4-6 Weeks Goal 2:: Patient will improved TUG to under 10 seconds with LRD Goal Time Frame: 4-6 Weeks Goal 3:: Patient will improve FGA to WFL for her age Goal Time Frame: 4-6 Weeks Goal 4:: Patient will report 75% improvement Goal Time Frame: 4-6 Weeks - Rehabilitation Potential Physical Therapy Diagnosis: Pt presents with hypomobility- she has decreased LE and core strength/stabilization, flex, proprioception and muscular endurance leading to poor posture, abnormal gait and decreased ability to perform ADL's safely. Rehabilitation Potential: Fair - Anticipated Interventions Patient/Client Instruction: Educate patient on: Benefits of Fitness Program Therapeutic Exercise to Include: Strength training, Endurance training, Balance training, Coordination, Agility training, Body mechanics, Postural training, Fle xibilty training, Gait and locomotor training, Neuromotor development, Dynamic Lumbar Stabilization, Scapular Strength/Stabilization Functional Training to Include: Gait training Thank you for the opportunity to evaluate your patient. For Medicare and Medicare HMO plans, please review the plan of care and approve it. It will need to be FAXED BACK to us at [phone] for Medicare purposes. For Medicare only, by signing this I certify the plan of care. Please let me know if there are questions or concerns regarding this plan of care. Physician Signature: Date:
--- NOTE | 2022-05-04 09:47 | HP.PTREVAL ---
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 Please see the progress note below for an update on the physical therapy plan of care! Subjective: Patient reports that her family feels that she is walking a lot better. She does not have the full strength like she had prior to COVID. She still episodes of of dizziness. The hardest thing for her is to bend down- she has had back surgery and then also she has bad shoulders. She has been cleaning her house and had to have help to reach higher levels. She is doing her exercise program at home. Does feel that she continues to improve and would like to continue PT. Objective/Function: Posture: FH, RS- can correct with verbal cues but does not maintain. Gait: no AD on even surfaces- good gait pattern Transitions: when sit to stand she requires single UE A. Stairs: recip with double hand rail. HR/TR: able with UE A and reports uncomfortable due to N/T in her feet. Sensation: diminished to gross touch bilateral. ROM: WFL in all planes. Strength: core: fair, Right Hip: 4-/5 throughout Left Hip: 4/5, Knee: 4+/5, Ankle: 5/5. Flex: HS: moderate, Gastroc: moderate Plan Plan: 05/04/22: Continue to focus on functional mobility and balance. Focus on Proprioception, LE and core strength/stabilization and functional mobility. HEP Given IE: Marching, Hip abduction, Hip Extn, Mini Squat, Weight shift/SLS- all at counter for safety- Encouraged to ride stationary bike. Balance/Gait/Functional tests - Balance/Special Test Scores Functional Gait Assessment Score: 21 % Disability: 30.0000 Lower Extremity Functional Score: 20 TUG Test Time Seconds: 12 Tug Test: <20 sec.=mostly independent Goals Goal 1:: Patient will be I with HEP and progression Goal Time Frame: 4-6 Weeks Goal Progress: Progressing Goal 2:: Patient will improved TUG to under 10 seconds with LRD Goal Time Frame: 4-6 Weeks Goal Progress: Progressing Goal 3:: Patient will improve FGA to WFL for her age Goal Time Frame: 4-6 Weeks Goal Progress: Progressing Goal 4:: Patient will report 75% improvement Goal Time Frame: 4-6 Weeks Goal Progress: Progressing Anticipated Interventions Patient/Client Instruction: Educate patient on: Benefits of Fitness Program Therapeutic Exercise to Include: Strength training, Endurance training, Balance training, Coordination, Agility training, Body mechanics, Postural training, Flexibilty training, Gait and locomotor training, Neuromotor development, Dynamic Lumbar Stabilization, Scapular Strength/Stabilization Functional Training to Include: Gait training Please do not hesitate to contact me at [phone] by phone or if you have questions or concerns regarding this new plan of care! Sincerely, JUAN ANTONIO CooperT
--- NOTE | 2022-06-01 13:12 | HP.PTREVAL_ITS ---
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 Please see the progress note below for an update on the physical therapy plan of care! Subjective: PATIENT REPORTS SHE STILL DOESN'T HAVE HER BALANCE. SHE REPORTS THERAPY HAS HELPED SOME BUT SHE STILL ISN'T LIKE SHE WAS BEFORE HAVING COVID. SHE REPORTS SHE CAN DO A LITTLE MORE WORK NOW THAN AT HER LAST RECHECK. SHE ALSO REPORTS HER ENERGY TO DO WORK IS IMPROVING AND SHE WANTS TO CONTINUE PT TO TRY TO CONTINUE TO MAKE PROGRESS. PATIENT REPORTS SHE DOES NOT LEAVE THE HOUSE WITHOUT HER QUAD CANE AND WOULDN'T FEEL SAFE DOING SO. Objective/Function: PATIENT WAS SEEN TODAY FOR RE-ASSESSMENT OF PROGRESS TOWARD THE SET PT GOALS AND THE NEED FOR FURTHER PHYSICAL THERAPY VS READINESS FOR DISCHARGE. PATIENTS STRENGTH AND BALANCE ARE CONTINUEING TO IMPROVE SLOWLY. SHE IS A GOOD CANDIDATE TO CONTINUE PT BASED ON PROGRESS MADE AND ROOM FOR FUTHER IMPROVEMENT. SHE IS AGREEABLE. UPON EXAM TODAY: Gait: QUAD cane AD on even surfaces- good gait pattern Transitions: when sit to stand no UE assist r equired now. Stairs: recip with ONE hand rail. HR/TR: able with ONE UE A. Strength: core: fair, Right Hip: 4/5 throughout Left Hip: 4/5, Knee: 5/5, Ankle: 5/5. SEE TUG AND STS TESTS BELOW. Plan Plan: 06/01: Continue to focus on functional mobility and balance. Focus on Proprioception, LE and core strength/stabilization and functional mobility 2x's a wk x 4-5 wks. Balance/Gait/Functional tests - Balance/Special Test Scores Functional Gait Assessment Score: 21 % Disability: 30.0000 Lower Extremity Functional Score: 40 TUG Test Time Seconds: 9.58 Tug Test: <10 sec.=free mobile 30 Second Chair Rise Test Seconds: 13 Goals Goal 1:: Patient will be I with HEP and progression Goal Time Frame: 4-6 Weeks Goal Progress: Progressing Goal 2:: Patient will improved TUG to under 10 seconds with LRD Goal Time Frame: 4-6 Weeks Goal Progress: Goal Met Goal 3:: Patient will improve FGA to WFL for her age Goal Time Frame: 4-6 Weeks Goal Progress: Progressing Goal 4:: Patient will report 75% improvement Goal Time Frame: 4-6 Weeks Goal Progress: Progressing Anticipated Interventions Patient/Client Instruction: Educate patient on: Benefits of Fitness Program Therapeutic Exercise to Include: Strength training, Endurance training, Balance training, Coordination, Agility training, Body mechanics, Postural training, Flexibilty training, Gait and locomotor training, Neuromotor development, Dynamic Lumbar Stabilization, Scapular Strength/Stabilization Functional Training to Include: Gait training Please do not hesitate to contact me at [phone] by phone or if you have questions or concerns regarding this new plan of care! Sincerely, Vangie Kirby, PT, Cert MDT
--- NOTE | 2022-07-13 09:48 | HP.PTDCSUM ---
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 Discharge Date: Please see the following information for a summary of their discharge status. Subjective: Patient reports that she is doing her exercises at home morning and evening. She does feel that she is better but she is not where she wants to be. She feels that she can walk a lot better now and she is helping more at home. She has rods in her back and 3 knee surgeries so she feels those are also limiting her mobility. She is still having a lot of issues with ear infections- left side. She has more issues with balance and dizziness when her ear is bad. Left Hip Pain Intensity (Out of 10): 0 Ankles Pain Intensity (Out of 10): 0 % Improvement: 50 Objective/Function: Gait: QUAD cane AD on even surfaces- good gait pattern- ambulates indoors without cane Transitions: when sit to stand no UE assist required now. Stairs: recip with one hand rail while carrying a small weight up/down. HR/TR: able with UE A for balance. Strength: core: fair, Right Hip: 4+/5 throughout Left Hip: 4+/5, Knee: 5/5, Ankle: 5/5. Goal 1:: Patient will be I with HEP and progression Goal Progress: Goal Met Goal 2:: Patient will improved TUG to under 10 seconds with LRD Goal Progress: Goal Met Goal 3:: Patient will improve FGA to WFL for her age Goal Progress: Progressing Goal 4:: Patient will report 75% improvement Goal Progress: Progressing Plan: 07/13/22: Discharge to I HEP. 06/01: Continue to focus on functional mobility and balance. Focus on Proprioception, LE and core strength/stabilization and functional mobility 2x's a wk x 4-5 wks. If there are questions or concerns regarding this patient's physical therapy, please feel free to call me at [phone]. Thank you for the referral of this patient. Sincerely, Laura Sharma, DPT Balance/Gait/Functional tests - Balance/Special Test Scores Functional Gait Assessment Score: 21 % Disability: 30.0000 Lower Extremity Functional Score: 40 TUG Test Time Seconds: 13 Tug Test: <20 sec.=mostly independent 30 Second Chair Rise Test Seconds: 13
== END 2022-07-13 19:00 | disposition home or self-care (01) ==
LOC: PT 09:30
PROVIDERS: PCP Nurse Practitioner Family; Referring Provider Nurse Practitioner Family; Visit Provider Nurse Practitioner Family
DX: R26.89 Other abnormalities of gait and mobility (principal)
CPT/HCPCS: 97110; 97162; 97164

== ENCOUNTER → 2023-08-23 | Outpatient (CLI) | payer OTHER, SELFPAY ==
--- NOTE | 2023-08-23 13:26 | EKG12_ITS ---
Test Reason : PRE OP Blood Pressure : / mmHG Vent. Rate : 055 BPM Atrial Rate : 055 BPM P-R Int : 296 ms QRS Dur : 100 ms QT Int : 426 ms P-R-T Axes : 077 -52 049 degrees QTc Int : 407 ms Sinus bradycardia with 1st degree A-V block Left anterior fascicular block Abnormal ECG Confirmed by NURYS RODRIGUEZ, MONALISA ([id number]), online editor HAYDEE WILDER ([id number]) on 08/24/2023 11:52:37 AM Referred By: Rogers Cano Confirmed By:MONALISA NUNO MD
[2023-08-23 13:45] LABS: Hemoglobin 14.4 g/dL (12.0-15.0); Mean Corpuscular Hgb 29.1 pg (27.0-32.0); Mean Corpuscular Volume 91.1 fL (81-99); Mean Platelet Vol. 10.1 fl (6.2-12.0); Platelet Count 222 K/mm3 (150-450); RBC Distribution Width CV 14.8 % (11.6-14.6); RBC Distribution Width SD 49.7 fl (35.1-43.9); Red Blood Count 4.94 M/mm3 (4.2-5.4); White Blood Count 8.7 K/mm3 (4.4-11.0)
[2023-08-23 14:05] LABS: Anion Gap 3 (5-15); BUN 19 mg/dL (7-18); BUN/Creat Ratio 20.6 RATIO (10-20); Calcium,Total 9.6 mg/dL (8.5-10.1); Chloride 102 mmol/L (98-107); Creatinine, Serum 0.92 mg/dL (0.55-1.02); EST Glomerular Filtration Rate 62 mL/min (>60); Est Glom Filt Rate - Afr Amer 76 mL/min (>60); Glucose 120 mg/dL (74-106); Potassium 3.7 mmol/L (3.5-5.1); Sodium Level 137 mmol/L (136-145)
== END | disposition home or self-care (01) ==
LOC: PSN 13:15
PROVIDERS: PCP Nurse Practitioner Family; Referring Provider Otolaryngology; Visit Provider Otolaryngology
DX: Z01.818 Encounter for other preprocedural examination (principal); Z01.812 Encounter for preprocedural laboratory examination
CPT/HCPCS: 36415; 80048; 85027; 93005

== ENCOUNTER → 2025-10-17 | Outpatient (CLI) | payer OTHER, SELFPAY ==
--- OUTSIDE RECORDS SUMMARY | 2025-10-17 14:12 | XMS RPT_ITS | CCD ---
Author Organization [facility] Inform ion [facility] Care Team Providers Care Teacher Drama Name Role Phone IVONE Gutierrez CNP, YANIV Singh Primary Care Phys ician Ivone CHOI, Yaniv Singh Primary Care Provider 1( [phone] Ivone SAMAYOA, Yaniv Gonzalez Primary Care Unav Jim Trent Referring Unavailabl e Jim Cano Attending Unavailabl e IVONE COMMUNICATIONS WRITER - RESIDENCE HALL DIRECTOR, YANIV Singh Attending U navailable IVONE COMMUNICATIONS WRITER - RESIDENCE HALL DIRECTOR, YANIV Singh Primary Care U navailable IVONE COMMUNICATIONS WRITER - RESIDENCE HALL DIRECTOR, YANIV Singh Attending U navailable IVONE COMMUNICATIONS WRITER - RESIDENCE HALL DIRECTOR, YANIV Singh Primary Care U navailable IVONE COMMUNICATIONS WRITER - RESIDENCE HALL DIRECTOR, YANIV Singh Primary Care U navailable IVONE COMMUNICATIONS WRITER - RESIDENCE HALL DIRECTOR, YANIV Singh Attending U navailable ERNIEDALE MARINO Attending Unavailable IVONE COMMUNICATIONS WRITER - RESIDENCE HALL DIRECTOR, YANIV Singh Primary Care U navailable DALE KLEIN Attending Unavailable IVONE COMMUNICATIONS WRITER - RESIDENCE HALL DIRECTOR, YANIV Singh Primary Care U navailable IVONE COMMUNICATIONS WRITER - RESIDENCE HALL DIRECTOR, YANIV Singh Primary Care U navailable IVONE COMMUNICATIONS WRITER - RESIDENCE HALL DIRECTOR, YANIV Singh Attending U navailable Allergies Allergy Classification Reported Allergen(s) Allergy Type Date of Onset Reaction(s) Facility (8 sources) amLODIPine / olmesartan; Translations: [amlodipine-olmes jad] Drug Allergy Pulse fast (finding) [facility] (8 sources) busPIRone; Translations: [buspirone] Drug Allergy Tachycardia (finding) [facility] (11 sources) Doxycycline; Translations: [doxycycline] Drug Allergy 10-15-202 1 Nausea (finding), GI Upset [facility] (11 sources) Erythromycin; Translations: [erythromycin] Drug Allergy 6 Eruption of skin (disorder) [facility] (11 sources) Estrogens, Conjugated (PRISON); Translations: [conjugated estrogens] Drug Allergy 6 Pulse fast (finding) [facility] (8 sources) Penicillin; Translations: [penicillins] Drug Allergy 6 [facility] (8 sources) rosuvastatin; Translations: [rosuvastatin] Drug Allergy Cough (finding) [facility] (9 sources) traMADol; Translations: [tramadol] Drug Allergy 2 Nausea (finding), GI Upset [facility] (11 sources) valdecoxib; Translations: [valdecoxib] Drug Allergy 6 Pulse fast (finding) [facility] (3 sources) busPIRone Drug Allergy 6 Unknown [facility] Work Phone: (3 sources) Digoxin Drug Allergy 6 Other [facility] Work Phone: (1 source) Propanidid Drug Allergy 6 [facility] Work Phone: (3 sources) rosuvastatin Drug Allergy 6 Other [facility] Work Phone: (2 sources) Acetaminophen Drug Allergy 1 Upset Stomach [facility] (2 sources) HYDROcodone Drug Allergy 1 Upset Stomach [facility] (2 sources) Penicillins Allergy to substance 1 Rash [facility] (1 source) ZAKI Propensity to adverse reactions 1 Other [facility] Work Phone: (1 source) HYCLATE Propensity to adverse reactions 1 Upset Stomach [facility] Work Phone: (1 source) Acetaminophen Drug Allergy 1 [facility] (1 source) busPIRone Drug Allergy 1 [facility] (1 source) Digoxin Drug Allergy 1 [facility] (1 source) Doxycycline Drug Allergy 1 [facility] (1 source) Erythromycin Drug Allergy 1 [facility] (1 source) Estrogens, Conjugated (PRISON) Drug Allergy 1 [facility] (1 source) HYDROcodone Drug Allergy 1 [facility] (1 source) Losartan Drug Allergy 3 [facility] (1 source) Penicillins Drug allergy (disorder) 1 [facility] (1 source) rosuvastatin Drug Allergy 1 [facility] (1 source) valdecoxib Drug Allergy 1 [facility] (1 source) Losartan Drug Allergy 3 Heart Racing [facility] (1 source) Penicillin; Translations: [penicillins] Drug Allergy [facility] Medications Current Medications Medication Drug Class(es) Dates Sig (Normalized) Sig (Original) acetaminophen 325 mg oral capsule (12 sources) Start: 03-17-2022 Tylenol 325 mg oral capsule Dose : 325 mg = 1 cap(s), Oral, q4h, PRN as needed for pain, # 20 cap(s), 0 Refill(s) Start Date: 03/17/22 Status: Ordered Quantity: 20.0 Unit: cap(s) Repeat number: 1 Start: 09-10-2017 End: 08-08-2021 take 1000 mg by mouth every eight hours Acetaminophen Active 1000 MG PO EVERY 8 HOURS August 08, 2021 1:42am Comment on above: Take 325 mg by mouth every 4 hours as needed. amLODIPine 5 mg oral tablet (11 sources) Dihydropyridine Calcium Channel Chey Start: 11-28-2024 End: 05-27-2025 amLODIPine 5 mg oral tablet Dose : 5 mg = 1 tab(s), Oral, qDay, # 90 tab(s), 1 Refill(s), Pharmacy: [facility], HTN, goal below 140/90, 157, cm, 11/28/24 8:52:00 EST, Height, kg, 11/28/24 8:52:00 EST, Dosing Weight Start Date: 11/28/24 Stop Date: 05/27/25 Status: Ordered Quantity: 90.0 Unit: tab(s) Repeat number: 2 Indications: Essential (primary) hypertension; Start: 05-23-2024 End: 11-19-2024 amLODIPine 5 mg oral tablet Dose : 5 mg = 1 tab(s), Oral, qDay, # 90 tab(s), 1 Refill(s), Pharmacy: [facility], HTN, goal below 140/90, 158, cm, 05/23/24 8:56:00 EDT, Height, kg, 05/23/24 8:56:00 EDT, Dosing Weight Start Date: 05/23/24 Stop Date: 11/19/24 Status: Ordered Quantity: 90.0 Unit: tab(s) Repeat number: 2 Indication: Essential (primary) hypertension Start: 11-09-2023 End: 05-07-2024 amLODIPine 5 mg oral tablet Dose : 5 mg = 1 tab(s), Oral, qDay, # 90 tab(s), 1 Refill(s), Pharmacy: [facility], HTN, goal below 140/90, 157.5, cm, 11/09/23 9:18:00 EST, Height, kg, 11/09/23 9:18:00 EST, Dosing Weight Start Date: 11/09/23 Stop Date: 05/07/24 Status: Ordered Start: 05-04-2023 End: 10-31-2023 amLODIPine 5 mg oral tablet Dose : 5 mg = 1 tab(s), Oral, qDay, # 90 tab(s), 1 Refill(s), Pharmacy: [facility]/pharmacy #[id number], HTN, goal below 140/90, 154.7, cm, 05/04/23 9:38:00 EDT, Height, kg, 05/04/23 9:38:00 EDT, Dosing Weight Start Date: 05/04/23 Stop Date: 10/31/23 Status: Ordered Start: 10-23-2015 End: 05-02-2023 amLODIPine 5 mg oral tablet Dose : 5 mg = 1 tab(s), Oral, qDay, # 90 tab(s), 1 Refill(s), Pharmacy: [facility]/pharmacy #[id number], HTN, goal below 140/90, 154.7, cm, 11/03/22 10:24:00 EST, Height, kg, 11/03/22 10:24:00 EST, Dosing Weight Start Date: 11/03/22 Stop Date: 05/02/23 Status: Ordered Comment on above: Take by mouth once d aily. cholecalciferol 0.025 mg oral capsule (2 sources) Vitamin D Start: 08-08-20 take 1 capsule by mouth once daily Cholecalciferol (Vitamin D3) (Vitamin D3) 25 mcg (1,000 unit) Capsule Active 25 MCG PO DAILY August 08, 2021 12:00am Cod Liver Oil (4 sources) Start: 05-04-20 Cod Liver Oil Oral, qDay, 0 Refill(s) Start Date: 05/04/23 Status: Ordered Repeat number: 1 Start: 05-04-2023 Cod Liver Oil Oral, qDay, 0 Refill(s) Start Date: 05/04/23 Status: Ordered dexamethasone 2 mg oral tablet (2 sources) Corticosteroid Start: 08-15-2021 take 6 mg by mouth once daily Dexamethasone Active 6 MG PO DAILY 9 August 15, 2021 12:00am DME M[facility] (1 source) Start: 08-25-2021 DME [facility]Cellaneous See Instructions, Overnight Pulse Ox (Home), # 1 EA, 0 Refill(s), Hypoxia ARDS (adult respiratory distress syndrome), 160, cm, 05/20/21 8:51:00 EDT, Height, 96.4, kg, 08/25/21 11:17:00 EDT, Dosing Weight Start Date: 08/25/21 Status: Ordered hydroCHLOROthiazide 12.5 mg / losartan potassium 50 mg oral tablet (11 sources) Thiazide Diuretic, Angiotensin 2 Receptor Chey Start: 11-28-2024 End: 05-27-2025 take 1 tablet by mouth once daily hydrochlorothiazi de-losartan 12.5-50 mg oral tablet Dose = 1 tab(s), Oral, qDay, # 90 tab(s), 1 Refill(s), Pharmacy: [facility], HTN, goal below 140/90, 157, cm, 11/28/24 8:52:00 EST, Height, kg, 11/28/24 8:52:00 EST, Dosing Weight Start Date: 11/28/24 Stop Date: 05/27/25 Status: Ordered Quantity: 90.0 Unit: tab(s) Repeat number: 2 Indications: Essential (primary) hypertension; Start: 05-23-2024 End: 11-19-2024 take 1 tablet by mouth once daily hydrochlorothiazide-losartan 12.5-50 mg oral tablet Dose = 1 tab(s), Oral, qDay, # 90 tab(s), 1 Refill(s), Pharmacy: [facility], HTN, goal below 140/90, 158, cm, 05/23/24 8:56:00 EDT, Height, kg, 05/23/24 8:56:00 EDT, Dosing Weight Start Date: 05/23/24 Stop Date: 11/19/24 Status: Ordered Quantity: 90.0 Unit: tab(s) Repeat number: 2 Indication: Essential (primary) hypertension Start: 11-09-2023 End: 05-07-2024 take 1 tablet by mouth once daily hydrochlorothiazide-losartan 12.5-50 mg oral tablet Dose = 1 tab(s), Oral, qDay, # 90 tab(s), 1 Refill(s), Pharmacy: [facility], HTN, goal below 140/90, 157.5, cm, 11/09/23 9:18:00 EST, Height, kg, 11/09/23 9:18:00 EST, Dosing Weight Start Date: 11/09/23 Stop Date: 05/07/24 Status: Ordered Start: 05-04-2023 End: 10-31-2023 take 1 tablet by mouth once daily hydrochlorothiazide-losartan 12.5-50 mg oral tablet Dose = 1 tab(s), Oral, qDay, # 90 tab(s), 1 Refill(s), Pharmacy: [facility]/pharmacy #[id number], 154.7, cm, 05/04/23 9:38:00 EDT, Height, kg, 05/04/23 9:38:00 EDT, Dosing Weight Start Date: 05/04/23 Stop Date: 10/31/23 Status: Ordered Start: 09-16-2021 End: 05-02-2023 take 1 tablet by mouth once daily hydrochlorothiazide-losartan 12.5-50 mg oral tablet Dose = 1 tab(s), Oral, qDay, # 90 tab(s), 1 Refill(s), Pharmacy: [facility]/pharmacy #[id number], 154.7, cm, 11/03/22 10:24:00 EST, Height, kg, 11/03/22 10:24:00 EST, Dosing Weight Start Date: 11/03/22 Stop Date: 05/02/23 Status: Ordered Start: 08-08-2021 take 1 tablet by david th once daily Losartan-Hydrochlorothiazide Active 1 TA BLET PO DAILY August 08, 2021 12:00am Comment on above: Take 1 tablet by david th once daily. loratadine 10 mg oral tablet (8 sources) Start: 08-25-2021 loratadine 10 mg oral tablet See Instructions, 1 tab(s) Oral as needed, 0 Refill(s) Start Date: 08/25/21 Status: Ordered Repeat number: 1 loratadine 10 mg cap Take 10 mg by mouth as needed. 0 Active Comment on above: Take 10 mg by mouth as needed. lovastatin 40 mg oral tablet (11 sources) HMG-CoA Reductase Inhibitor Start: 11-28-2024 End: 05-27-2025 lovastatin 40 mg oral tablet Dose : 40 mg = 1 tab(s), Oral, qHS, # 90 tab(s), 1 Refill(s), Pharmacy: [facility], Hyperlipidemia, 157, cm, 11/28/24 8:52:00 EST, Height, kg, 11/28/24 8:52:00 EST, Dosing Weight Start Date: 11/28/24 Stop Date: 05/27/25 Status: Ordered Quantity: 90.0 Unit: tab(s) Repeat number: 2 Indications: Hyperlipidemia, unspecified; Start: 05-23-2024 End: 11-19-2024 lovastatin 40 mg oral tablet Dose : 40 mg = 1 tab(s), Oral, qHS, # 90 tab(s), 1 Refill(s), Pharmacy: [facility], Hyperlipidemia, 158, cm, 05/23/24 8:56:00 EDT, Height, kg, 05/23/24 8:56:00 EDT, Dosing Weight Start Date: 05/23/24 Stop Date: 11/19/24 Status: Ordered Quantity: 90.0 Unit: tab(s) Repeat number: 2 Indication: Hyperlipidemia, unspecified Start: 11-09-2023 End: 05-07-2024 lovastatin 40 mg oral tablet Dose : 40 mg = 1 tab(s), Oral, qHS, # 90 tab(s), 1 Refill(s), Pharmacy: [facility], Hyperlipidemia, 157.5, cm, 11/09/23 9:18:00 EST, Height, kg, 11/09/23 9:18:00 EST, Dosing Weight Start Date: 11/09/23 Stop Date: 05/07/24 Status: Ordered Start: 05-04-2023 End: 10-31-2023 lovastatin 40 mg oral tablet Dose : 40 mg = 1 tab(s), Oral, qHS, # 90 tab(s), 1 Refill(s), [id number], Hyperlipidemia, 154.7, cm, 05/04/23 9:38:00 EDT, Height, kg, 05/04/23 9:38:00 EDT, Dosing Weight Start Date: 05/04/23 Stop Date: 10/31/23 Status: Ordered Start: 08-08-2021 End: 05-02-2023 lovastatin 40 mg oral tablet Dose : 40 mg = 1 tab(s), Oral, qHS, # 90 tab(s), 1 Refill(s), Pharmacy: [facility]/pharmacy #[id number], Hyperlipidemia, 154.7, cm, 11/03/22 10:24:00 EST, Height, kg, 11/03/22 10:24:00 EST, Dosing Weight Start Date: 11/03/22 Stop Date: 05/02/23 Status: Ordered Comment on above: Take 40 mg by mouth daily at bedtime. 24 hr metoprolol succinate 25 mg extended release oral tablet (1 source) beta-Adrenergic Chey Start: 03-08-2025 metoprolol succinate 25 mg oral TABLET extended release Dose : 25 mg = 1 tab(s), Oral, qDay, Do not crush or chew (controlled release), # 30 tab(s), 5 Refill(s), Pharmacy: [facility], 160, cm, 03/08/25 12:52:00 EDT, Height, kg, 03/08/25 12:52:00 EDT, Dosing Weight Start Date: 03/08/25 Status: Ordered Quantity: 30.0 Unit: tab(s) Repeat number: 6 Misc Medication (8 sources) Start: 05-04-2023 Misc Medication [place] Kid[place], 0 Refill(s), 106.8 Start Date: 05/04/23 Status: Ordered Repeat number: 1 Start: 05-04-2023 Misc Medicatio n [place] Kid[place], 0 Refill(s), 106.8 Start Date: 05/04/23 Status: Ordered Start: 05-04-2023 Misc Medicatio n [place], 0 Refill(s), 106.8 Start Date: 05/04/23 Status: Ordered Repeat number: 1 Start: 05-04-2023 Misc Medicatio n [place], 0 Refill(s), 106.8 Start Date: 05/04/23 Status: Ordered montelukast 10 mg oral tablet (2 sources) Leukotriene Receptor Antagonist Start: 09-10-2017 take 10 mg by mouth once daily Montelukast Active 10 MG PO DAILY@1700 90 September 10, 2017 1:00am omeprazole 40 mg delayed release oral capsule (11 sources) Proton Pump Inhibitor Start: 05-23-2024 omeprazole 40 mg oral delayed release capsule Dose : 40 mg = 1 cap(s), Oral, qDay, # 90 cap(s), 1 Refill(s), Pharmacy: [facility], 157, cm, 11/28/24 8:52:00 EST, Height, kg, 11/28/24 8:52:00 EST, Dosing Weight Start Date: 11/28/24 Status: Ordered Quantity: 90.0 Unit: cap(s) Repeat number: 2 Start: 11-03-2022 omeprazole 40 mg oral delayed release capsule Dose : 40 mg = 1 cap(s), Oral, qDay, # 90 cap(s), 1 Refill(s), [id number], 154.7, cm, 05/04/23 9:38:00 EDT, Height, kg, 05/04/23 9:38:00 EDT, Dosing Weight Start Date: 05/04/23 Status: Ordered Start: 08-18-2022 omeprazole 40 mg oral delayed release capsule Dose : 40 mg = 1 cap(s), Oral, qDay, # 90 cap(s), 1 Refill(s), [id number], 156, cm, 08/18/22 8:40:00 EDT, Height, kg, 08/18/22 8:40:00 EDT, Dosing Weight Start Date: 08/18/22 Status: Ordered Start: 09-16-2021 End: 06-13-2022 omeprazole (PRILOSEC) 20 mg capsule Take 40 mg by mouth. 0 09/16/2021 06/13/2022 Active Start: 10-23-2015 End: 06-13-2022 take 20 mg by mouth once daily as needed Omeprazole Active 20 MG PO DAILY NEEDED October 23, 2015 1:00am Comment on above: Take 40 mg by mouth. red yeast rice 600 mg oral capsule (3 sources) Start: 08-08-2021 take 600 mg by mouth once daily Red Yeast Rice Active 600 MG PO DAILY August 08, 2021 12:00am Comment on above: Take 600 mg by mouth once daily. Red Yeast Rice 600 mg oral capsule (8 sources) Start: 02-28-2021 Red Yeast Rice 600 mg oral capsule Dose : 600 mg = 1 cap(s), Oral, qDayM, 0 Refill(s) Start Date: 02/28/21 Status: Ordered Repeat number: 1 Start: 02-28-2021 Red Yeast Rice 600 mg oral capsule Dose : 600 mg = 1 cap(s), Oral, qDayM, 0 Refill(s) Start Date: 02/28/21 Status: Ordered Completed/Discontinued Medications Medication Drug Class(es) Dates Sig (Normalized) Sig (Original) acetaminophen 325 mg / HYDROcodone bitartrate 5 mg oral tablet (2 sources) Opioid Agonist Start: 10-14-2016 End: 09-10-2017 take 1 tablet by mouth every six hours as needed Hydrocodone-Acetami nophen Discontinued 1 - 2 TABLET PO EVERY 6 HOURS NEEDED 90 October 14, 2016 1:00am September 10, 2017 7:37am albuterol MDI (90 mcg/inh) CFC free inhalation aerosol (3 sources) Start: 11-03-2022 End: 12-03-2022 take 2 puff(s) by inhalation every six hours albuterol MDI (90 mcg/inh) CFC free inhalation aerosol 2 puff(s), Inhalation, q6h, # 18 gram(s), 0 Refill(s), [id number], Acute bronchitis, 154.7, cm, 11/03/22 10:24:00 EST, Height, kg, 11/03/22 10:24:00 EST, Dosing Weight Start Date: 11/03/22 Stop Date: 12/03/22 Status: Ordered Start: 08-18-2022 End: 09-17-2022 take 2 puff(s) by inhalation every six hours albuterol MDI (90 mcg/inh) CFC free inhalation aerosol 2 puff(s), Inhalation, q6h, # 18 gram(s), 0 Refill(s), [id number], Acute bronchitis, 156, cm, 08/18/22 8:40:00 EDT, Height Start Date: 08/18/22 Stop Date: 09/17/22 Status: Ordered apixaban 5 mg oral tablet (1 source) Factor Xa Inhibitor Start: 01-30-2025 End: 03-01-2025 apixaban 5 mg oral tablet Dose : 5 mg = 1 tab(s), Oral, BID, # 60 tab(s), 0 Refill(s), Pharmacy: [facility], 160, cm, 01/11/25 13:22:00 EDT, Height, 100.2, kg, 01/11/25 13:22:00 EDT, Dosing Weight Start Date: 01/30/25 Stop Date: 03/01/25 Status: Ordered Quantity: 60.0 Unit: tab(s) Repeat number: 1 Indications: Unspecified atrial fibrillation; atenolol 100 mg oral tablet (10 sources) beta-Adrenergic Chey Start: 05-23-2024 End: 11-19-2024 atenolol 100 mg oral tablet Dose : 100 mg = 1 tab(s), Oral, qDay, # 90 tab(s), 1 Refill(s), Pharmacy: [facility], Hyperlipidemia, 158, cm, 05/23/24 8:56:00 EDT, Height, kg, 05/23/24 8:56:00 EDT, Dosing Weight Start Date: 05/23/24 Stop Date: 11/19/24 Status: Ordered Quantity: 90.0 Unit: tab(s) Repeat number: 2 Indication: Hyperlipidemia, unspecified Start: 11-09-2023 End: 05-07-2024 atenolol 100 mg oral tablet Dose : 100 mg = 1 tab(s), Oral, qDay, # 90 tab(s), 1 Refill(s), Pharmacy: [facility], Hyperlipidemia, 157.5, cm, 11/09/23 9:18:00 EST, Height, kg, 11/09/23 9:18:00 EST, Dosing Weight Start Date: 11/09/23 Stop Date: 05/07/24 Status: Ordered Start: 05-04-2023 End: 10-31-2023 atenolol 100 mg oral tablet Dose : 100 mg = 1 tab(s), Oral, qDay, # 90 tab(s), 1 Refill(s), [id number], Hyperlipidemia, 154.7, cm, 05/04/23 9:38:00 EDT, Height, kg, 05/04/23 9:38:00 EDT, Dosing Weight Start Date: 05/04/23 Stop Date: 10/31/23 Status: Ordered Start: 10-23-2015 End: 05-02-2023 atenolol 100 mg oral tablet Dose : 100 mg = 1 tab(s), Oral, qDay, # 90 tab(s), 1 Refill(s), Pharmacy: [facility]acy #[id number], Hyperlipidemia, 154.7, cm, 11/03/22 10:24:00 EST, Height, kg, 11/03/22 10:24:00 EST, Dosing Weight Start Date: 11/03/22 Stop Date: 05/02/23 Status: Ordered Comment on above: Take 100 mg by mouth once daily. cholecalciferol, vitamin D3, (VITAMIN D3 ORAL) (1 source) cholecalciferol, vitamin D3, (VITAMIN D3 ORAL) Take 2,000 Int'l Units by mouth once daily. 0 Active Comment on above: Take 2,000 Int'l Uni ts by mouth once daily. 50 ml clindamycin 12 mg/ml injection (1 source) Lincosamide Antibacterial Start: 02-04-20 06 CLEOCIN IN D5W 600 MG/50 ML IV PIGGY BACK Indications: Blood in stool IVPB registration scheduling specialist 1 0 02/03/2006 Active Comment on above: IVPB registration scheduling specialist diphenhydrAMINE hydrochloride 25 mg oral tablet (1 source) Histamine-1 Receptor Antagonist Start: 02-04-20 06 BENADRYL ALLERGY 25 MG TAB Take one(1) tablet daily. 0 02/03/2006 Active Comment on above: Take one(1) tablet d aily. ezetimibe 10 mg / simvastatin 20 mg oral tablet (1 source) HMG-CoA Reductase Inhibitor, Dietary Cholesterol Absorption Inhibitor Start: 02-04-20 06 VYTORIN 10/20 10 MG-20 MG TAB Take one(1) tablet daily. 0 02/03/2006 Active Comment on above: Take one(1) tablet d aily. lansoprazole 30 mg disintegrating oral tablet (2 sources) Proton Pump Inhibitor Start: 02-18-20 06 LANSOPRAZOLE 30 MG RAPID DISSOLVE TAB, DELAYED RELEASE Indications: Esophageal reflux .qd 90 3 02/24/2006 Active Comment on above: .qd lisinopril 10 mg oral tablet (1 source) Angiotensin Converting Enzyme Inhibitor Start: 02-04-20 06 ZESTRIL 10 MG TAB Take one(1) tablet daily. 0 02/03/2006 Active Comment on above: Take one(1) tablet d aily. meloxicam 7.5 mg oral tablet (1 source) Nonsteroidal Anti-inflammatory Drug Start: 02-04-20 06 MOBIC 7.5 MG TAB as necessary 0 02/03/2006 Active Comment on above: as necessary nadolol 20 mg oral tablet (1 source) beta-Adrenergic Chey Start: 02-04-20 06 NADOLOL 20 MG TAB Take one(1) tablet daily. 0 02/03/2006 Active Comment on above: Take one(1) tablet d aily. naproxen sodium 220 mg oral tablet (4 sources) Nonsteroidal Anti-inflammatory Drug Start: 09-25-20 End: 10-14-20 take 1 tablet by mouth every twelve hours as needed Naproxen Sodium (Aleve) 220 MG tablet Discontinued 220 MG PO EVERY 12 HOURS NEEDED September 25, 2016 1:00am October 14, 2016 1:51pm Start: 10-23-2015 End: 01-29-2016 take 1 tablet by mouth every eight hours as needed Naproxen Sodium (Aleve) 220 MG tablet Discontinued 220 MG PO EVERY 8 HOURS NEEDED October 23, 2015 1:00am January 29, 2016 7:16am Vitamin D3 2000 intl units ( 50 mcg) oral tablet (6 sources) Start: 01-21-2021 End: 04-21-2021 Vitamin D3 2000 intl units ( 50 mcg) oral tablet Dose : 2,000 unit(s) = 1 tab(s), Oral, Daily, OTC, # 90 tab(s), 0 Refill(s), other reason (Rx) Start Date: 01/21/21 Stop Date: 04/21/21 Status: Ordered Vitamin D3 50 mcg (2000 intl units) oral tablet (2 sources) Start: 05-23-2024 End: 08-21-2024 Vitamin D3 50 mcg (2000 intl units) oral tablet Dose : 2,000 unit(s) = 1 tab(s), Oral, Daily, OTC, # 90 tab(s), 0 Refill(s), Pharmacy: [facility], 158, cm, 05/23/24 8:56:00 EDT, Height, kg, 05/23/24 8:56:00 EDT, Dosing Weight Start Date: 05/23/24 Stop Date: 08/21/24 Status: Ordered Quantity: 90.0 Unit: tab(s) Repeat number: 1 Problems Active Problems Problem Classification Problem Date Documented Date Episodic/Chronic Cardiac dysrhythmias (1 source) Atrial fibrillation 03-06-2025 Chronic Cardiac dysrhythmias (8 sources) Bradycardia 07-11-2019 Episodic Chronic kidney disease (10 sources) Chronic kidney disease stage 3; Translations: [Chronic kidney disease, unspecified] Onset: 05-22-2025 01-16-2020 Chronic Chronic kidney disease (6 sources) Chronic kidney disease; Translations: [Chronic kidney disease, stage 3 unspecified] Onset: 10-28-2023 Coagulation and hemorrhagic disorders (8 sources) Bleeds easily 02-07-2021 Chronic Conditions associated with dizziness or vertigo (8 sources) Dizziness 05-20-2021 Episodic Deficiency and other anemia (2 sources) Anemia 05-23-2024 Episodic Disorders of lipid metabolism (14 sources) Hyperlipidemia; Translations: [Hyperlipidemia, unspecified] Onset: 10-28-2023 01-16-2020 Chronic Esophageal disorders (9 sources) Gastroesophageal reflux disease; Translations: [Gastro-esophageal reflux disease without esophagitis] Onset: 02-03-2006 01-21-2021 Chronic Essential hypertension (20 sources) Essential hypertension; Translations: [Hypertensive disorder] Onset: 10-28-2023 05-28-2020 Chronic Fluid and electrolyte disorders (2 sources) Acute hypokalemia; Translations: [Hypokalemia] 08-23-2021 Episodic Heart valve disorders (16 sources) Mitral valve prolapse; Translations: [Non-rheumatic mitral regurgitation ] 07-11-2019 Chronic Heart valve disorders (8 sources) Heart murmur 01-21-2021 Episodic Malaise and fatigue (4 sources) Asthenia; Translations: [Weakness] 08-08-2021 Episodic Nutritional deficiencies (10 sources) Vitamin D deficiency; Translations: [Vitamin D deficiency, unspecified] Onset: 05-22-2025 01-16-2020 Chronic Osteoarthritis (2 sources) Osteoarthritis; Translations: [Unspecified osteoarthritis, unspecified site] 01-27-2016 Chronic Other and unspecified benign neoplasm (7 sources) Lipoma of back 03-17-2022 Episodic Other nervous system disorders (7 sources) Impairment of balance 03-17-2022 Episodic Other nutritional; endocrine; and metabolic disorders (6 sources) Body mass index 40+ - severely obese 11-03-2022 Chronic Other nutritional; endocrine; and metabolic disorders (3 sources) Morbid obesity 11-09-2023 Chronic Other nutritional; endocrine; and metabolic disorders (4 sources) Morbid (severe) obesity due to excess calories; Translations: [Morbid (severe) obesity due to excess calories] Onset: 05-11-2024 Chronic Other skin disorders (1 source) Disorder of subcutaneous tissue; Translations: [Disorder of the skin and subcutaneous tissue, unspecified] Episodic Peripheral and visceral atherosclerosis (8 sources) Peripheral vascular disease 02-28-2021 Chronic Comment on above: Arterial Studies of Both Legs (02/2021): IMPRESSION: 1. Bilateral lower extremities with triphasic furlough and a REYNALDO of 1.24 bilaterally Residual codes; unclassified (8 sources) Increased body mass index 09-16-2021 Episodic Respiratory failure; insufficiency; arrest (adult) (2 sources) Acute hypoxemic respiratory failure; Translations: [Acute respiratory failure with hypoxia] 08-08-2021 Episodic Unclassified (8 sources) History of SARS-CoV-2 09-16-2021 Comment on above: Hospitalized with hy poxia Unclassified (7 sources) Non-smoker 03-17-2022 Unclassified (3 sources) Patient encounter status 11-09-2023 Unclassified (1 source) Chronic refractory cough 11-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 (8 sources) Varicose veins of lower extremity 02-07-2021 Episodic Viral infection (2 sources) Disease caused by 2019-nCoV; Translations: [COVID-19] 08-08-2021 Episodic Past or Other Problems Problem Classification Problem Date Documented Da te Episodic/Chronic Gastrointestinal hemorrhage (1 source) Hematochezia; Translations: [Melena] Onset: 02-03-2006 02-03-2006 Episodic Other and unspecified benign neoplasm (1 source) Benign neoplasm of colon; 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, unspecified] Onset: 02-17-2006 02-17-2006 Episodic Results Test Name Value Interpretation Reference Range Facility .Auto Diffon 05-22-2025 Basophil, Absolute 0.0 10 3/mcL Normal 0.0-0.3 [facility] Comment on above: Performed By: #### L IPID, FE, GFR, VIDH, MG, ADIFF, CBC, CMP, ANEU #### [facility] [address] [place], [place] [address] #### PTH #### [facility] [address] [place] [address] Basophils/100 WBC (Bld) 0.6 % Normal 0.0-2.5 [facility] Comment on above: Performed By: #### L IPID, FE, GFR, VIDH, MG, ADIFF, CBC, CMP, ANEU #### [address] [address] #### PTH #### [address] [address] Eosinophil, Absolute 0.1 10 3/mcL Normal 0.0-0.7 [facility] Comment on above: Performed By: #### L IPID, FE, GFR, VIDH, MG, ADIFF, CBC, CMP, ANEU #### [place] [address] #### PTH #### [address] [address] Eosinophils/100 WBC (Bld) 1.7 % Normal 0.0-6.0 [facility] Comment on above: Performed By: #### L IPID, FE, GFR, VIDH, MG, ADIFF, CBC, CMP, ANEU #### [place] [address] #### PTH #### [address] [address] Lymphocyte, Absolute 1.8 10 3/mcL Normal 0.9-4.3 [facility] Comment on above: Performed By: #### L IPID, FE, GFR, VIDH, MG, ADIFF, CBC, CMP, ANEU #### [place] [address] #### PTH #### [address] [address] Lymphocytes/100 WBC (Bld) 25.4 % Normal 20.0-40.0 [facility] Comment on above: Performed By: #### L IPID, FE, GFR, VIDH, MG, ADIFF, CBC, CMP, ANEU #### [place] [address] #### PTH #### [address] [address] Monocyte, Absolute 0.6 10 3/mcL Normal 0.1-1.4 [facility] Comment on above: Performed By: #### L IPID, FE, GFR, VIDH, MG, ADIFF, CBC, CMP, ANEU #### [address] [address] #### PTH #### [address] [address] Monocytes/100 WBC (Bld) 8.2 % Normal 2.0-13.0 [facility] Comment on above: Performed By: #### L IPID, FE, GFR, VIDH, MG, ADIFF, CBC, CMP, ANEU #### [address] [address] #### PTH #### [address] [address] Neutrophils/100 WBC (Bld) 64.1 % Normal 50.0-75.0 [facility] Comment on above: Performed By: #### L IPID, FE, GFR, VIDH, MG, ADIFF, CBC, CMP, ANEU #### [address] [address] #### PTH #### [address] [address] .GFRon 05-22-2025 Estimated Glomerular Filtration Rate 68 ml/min/1.73sqm Normal [facility] Comment on above: Result Comment: Stages of Chronic Kidney Disease (CKD) Stage Description eGFR(ml/min/1.73 sq.m.) CKD 1 Normal kidney function or >=90 normal kindney function with possible kidney damage (ex. Proteinuria) CKD 2 Kidney damage with mild loss 60-89 of kidney function CKD 3a Mild to moderate loss of kidney 45-59 function CKD 3b Moderate to severe loss of 30-44 of kindey function CKD 4 Severe loss of kidney function 15-29 CKD 5 Kidney failure <15 Note: (go live 2024) the eGFR calculation was updated to the 2020 CKD-EPI creatinine equation without a race factor to calculate the eGFR results. Performed By: #### C BC, ANEU, LIPID, VIDH, GFR, CMP, ADIFF #### [address] [address] #### PTH #### [address] [address] .NEUABSon 05-22-2025 Neutrophil, Absolute 4.6 10 3/mcL Normal 2.3-8.1 [facility] Comment on above: Performed By: #### C BC, ANEU, LIPID, VIDH, GFR, CMP, ADIFF #### [place] [address] #### PTH #### [place] [address] CBCon 05-22-2025 Erythrocyte distribution width (RBC) [Ratio] 14.8 % Normal 11.5-15.5 [facility] Comment on above: Performed By: #### L IPID, FE, GFR, VIDH, MG, ADIFF, CBC, CMP, ANEU #### [place] [address] #### PTH #### [place] [address] Hematocrit (Bld) [Volume fraction] 42.1 % Normal 34.0-46.0 [facility] Comment on above: Performed By: #### L IPID, FE, GFR, VIDH, MG, ADIFF, CBC, CMP, ANEU #### [place] [address] #### PTH #### [place] [address] Hgb 13.9 G/dL Normal 12.0-16.0 [facility] Comment on above: Performed By: #### L IPID, FE, GFR, VIDH, MG, ADIFF, CBC, CMP, ANEU #### [place] [address] #### PTH #### [place] [address] MCH (RBC) [Entitic mass] 29.4 pg Normal 27.0-33.0 [facility] Comment on above: Performed By: #### L IPID, FE, GFR, VIDH, MG, ADIFF, CBC, CMP, ANEU #### [place] [address] #### PTH #### [place] [address] MCHC 33.0 G/dL Normal 32.0-36.0 [facility] Comment on above: Performed By: #### L IPID, FE, GFR, VIDH, MG, ADIFF, CBC, CMP, ANEU #### [place] [address] #### PTH #### [place] [address] MCV (RBC) [Entitic vol] 89.3 fL Normal 80.0-99.0 [facility] Comment on above: Performed By: #### L IPID, FE, GFR, VIDH, MG, ADIFF, CBC, CMP, ANEU #### [place] [address] #### PTH #### [place] [address] Platelet 227 10 3/mcL Normal 150-450 [facility] Comment on above: Performed By: #### L IPID, FE, GFR, VIDH, MG, ADIFF, CBC, CMP, ANEU #### [place] [address] #### PTH #### [place] [address] Platelet mean volume (Bld) [Entitic vol] 8.6 fL Normal 6.6-10.5 [facility] Comment on above: Performed By: #### L IPID, FE, GFR, VIDH, MG, ADIFF, CBC, CMP, ANEU #### [place] [address] #### PTH #### [place] [address] RBC 4.72 10 6/mcL Normal 4.10-5.30 [facility] Comment on above: Performed By: #### L IPID, FE, GFR, VIDH, MG, ADIFF, CBC, CMP, ANEU #### [place] [address] #### PTH #### [place] [address] WBC 7.1 10 3/mcL Normal 4.5-10.8 [facility] Comment on above: Performed By: #### L IPID, FE, GFR, VIDH, MG, ADIFF, CBC, CMP, ANEU #### [place] [address] #### PTH #### [place] [address] CMPon 05-22-2025 Albumin Level 3.3 G/dL Low 3.4-4.8 [facility] Comment on above: Performed By: #### C BC, ANEU, LIPID, VIDH, GFR, CMP, ADIFF #### [place] [address] #### PTH #### [place] [address] Albumin/Globulin [Mass ratio] 0.7 {ratio} Low 1.1-2.5 [facility] Comment on above: Performed By: #### C BC, ANEU, LIPID, VIDH, GFR, CMP, ADIFF #### [place] [address] #### PTH #### [place] [address] ALP [Catalytic activity/Vol] 91 U/L Normal 40-135 [facility] Comment on above: Performed By: #### C BC, ANEU, LIPID, VIDH, GFR, CMP, ADIFF #### [place] [address] #### PTH #### [place] [address] ALT [Catalytic activity/Vol] 16 U/L Normal 14-59 [facility] Comment on above: Performed By: #### C BC, ANEU, LIPID, VIDH, GFR, CMP, ADIFF #### [address] [address] #### PTH #### [address] [address] AST [Catalytic activity/Vol] 21 U/L Normal 10-40 [facility] Comment on above: Performed By: #### C BC, ANEU, LIPID, VIDH, GFR, CMP, ADIFF #### [place] [address] #### PTH #### [address] [address] Bili Total 0.6 mg/dL Normal 0.2-1.0 [facility] Comment on above: Result Comment: Use of this assay is not recommended for patients undergoing treatment with eltrombopag due to the potential for falsely elevated results. Performed By: #### C BC, ANEU, LIPID, VIDH, GFR, CMP, ADIFF #### [place] [address] #### PTH #### [address] [address] BUN/Creatinine Ratio 21 ratio Normal 7-27 [facility] Comment on above: Performed By: #### C BC, ANEU, LIPID, VIDH, GFR, CMP, ADIFF #### [place] [address] #### PTH #### [address] [address] Calcium [Mass/Vol] 9.9 mg/dL Normal 8.4-10.2 [facility] Comment on above: Performed By: #### C BC, ANEU, LIPID, VIDH, GFR, CMP, ADIFF #### [place] [address] #### PTH #### [address] [address] Chloride [Moles/Vol] 102 mmol/L Normal 98-107 [facility] Comment on above: Performed By: #### C BC, ANEU, LIPID, VIDH, GFR, CMP, ADIFF #### [address] [address] #### PTH #### [address] [address] CO2 [Moles/Vol] 33 mmol/L High 23-31 [facility] Comment on above: Performed By: #### C BC, ANEU, LIPID, VIDH, GFR, CMP, ADIFF #### [address] [address] #### PTH #### [address] [address] Creatinine [Mass/Vol] 0.86 mg/dL Normal 0.51-0.95 [facility] Comment on above: Performed By: #### C BC, ANEU, LIPID, VIDH, GFR, CMP, ADIFF #### [address] [address] #### PTH #### [place] [address] Electrolyte Balance 6.0 mEq/L Normal 4.0-15.0 [facility] Comment on above: Performed By: #### C BC, ANEU, LIPID, VIDH, GFR, CMP, ADIFF #### [address] [address] #### PTH #### [address] [address] Globulin 4.7 G/dL High 2.7-4.4 [facility] Comment on above: Performed By: #### C BC, ANEU, LIPID, VIDH, GFR, CMP, ADIFF #### [address] [address] #### PTH #### [address] [address] Glucose [Mass/Vol] 87 mg/dL Normal 83-110 [facility] Comment on above: Performed By: #### C BC, ANEU, LIPID, VIDH, GFR, CMP, ADIFF #### [place] [address] #### PTH #### [address] [address] Potassium [Moles/Vol] 4.0 mmol/L Normal 3.5-5.1 [facility] Comment on above: Performed By: #### C BC, ANEU, LIPID, VIDH, GFR, CMP, ADIFF #### [address] [address] #### PTH #### [address] [address] Sodium [Moles/Vol] 141 mmol/L Normal 136-145 [facility] Comment on above: Performed By: #### C BC, ANEU, LIPID, VIDH, GFR, CMP, ADIFF #### [address] [address] #### PTH #### [address] [address] Total Protein 8.0 G/dL Normal 6.4-8.2 [facility] Comment on above: Performed By: #### C BC, ANEU, LIPID, VIDH, GFR, CMP, ADIFF #### [address] [address] #### PTH #### [place] [address] Urea nitrogen [Mass/Vol] 18 mg/dL Normal 7-18 [facility] Comment on above: Performed By: #### C BC, ANEU, LIPID, VIDH, GFR, CMP, ADIFF #### [address] [address] #### PTH #### [address] [address] FEon 05-22-2025 Iron [Mass/Vol] 83 ug/dL Normal 50-170 [facility] Comment on above: Performed By: #### C BC, ANEU, LIPID, VIDH, GFR, CMP, ADIFF #### [address] [address] #### PTH #### [place] [address] LABORATORYOrdered By: SYSTEM SYSTEM on 05-22-2025 25-hydroxyvitamin D3 [Mass/Vol] 51.2 ng/mL Invalid Interpretation Code AO ADM SS Comment on above: Interpretive Data: I nterpretive Values Based on Total 25(OH) Vitamin D: Deficient <20 ng/mL Insufficient 20 - <30 ng/mL Sufficient 30-100 ng/mL Albumin BCP dye [Mass/Vol] 3.3 G/dL Low 3.4 - 4.8 G/dL AO ADM SS Albumin/Globulin [Mass ratio] 0.7 {ratio} Low 1.1 - 2.5 ratio AO ADM SS ALP [Catalytic activity/Vol] 91 U/L Normal 40 - 135 U/L AO ADM SS ALT With P-5'-P [Catalytic activity/Vol] 16 U/L Normal 14 - 59 U/L AO ADM SS AST With P-5'-P [Catalytic activity/Vol] 21 U/L Normal 10 - 40 U/L AO ADM SS Basophils (Bld) [#/Vol] 0.0 103/mcL Normal 0.0 - 0.3 10^3/mcL AO Workflow SS Basophils/100 WBC (Bld) 0.6 % Normal 0.0 - 2.5 % AO Workflow SS Bilirubin [Mass/Vol] 0.6 mg/dL Normal 0.2 - 1 .0 mg/dL AO ADM SS Comment on above: Interpretive Data: U se of this assay is not recommended for patients undergoing treatment with eltrombopag due to the potential for falsely elevated results. Calcium [Mass/Vol] 9.9 mg/dL Normal 8.4 - 10. 2 mg/dL AO ADM SS Chloride [Moles/Vol] 102 mmol/L Normal 98 - 10 7 mmol/L AO ADM SS CO2 [Moles/Vol] 33 mmol/L High 23 - 31 mmol/L AO ADM SS Creatinine [Mass/Vol] 0.86 mg/dL Normal 0.51 - 0.95 mg/dL AO ADM SS Electrolyte Balance 6.0 mEq/L Normal 4.0 - 15 .0 mEq/L AO ADM SS Eosinophil, Absolute 0.1 103/mcL Normal 0.0 - 0 .7 10^3/mcL AO Workflow SS Eosinophils/100 WBC (Bld) 1.7 % Normal 0.0 - 6.0 % AO Workflow SS Erythrocyte distribution width (RBC) [Ratio] 14.8 % Normal 11.5 - 15.5 % AO Workflow SS Estimated Glomerular Filtration Rate 68 ml/min/1.73sqm Invalid Interpretation Code AO Chemistry S Comment on above: Interpretive Data: Stages of Chronic Kidney Disease (CKD) Stage Description eGFR(ml/min/1.73 sq.m.) CKD 1 Normal kidney function or >=90 normal kindney function with possible kidney damage (ex. Proteinuria) CKD 2 Kidney damage with mild loss 60-89 of kidney function CKD 3a Mild to moderate loss of kidney 45-59 function CKD 3b Moderate to severe loss of 30-44 of kindey function CKD 4 Severe loss of kidney function 15-29 CKD 5 Kidney failure <15 Note: (go live 2024) the eGFR calculation was updated to the 2020 CKD-EPI creatinine equation without a race factor to calculate the eGFR results. Globulin 4.7 G/dL High 2.7 - 4.4 G/dL AO ADM SS Glucose [Mass/Vol] 87 mg/dL Normal 83 - 110 mg/dL AO ADM SS Hematocrit (Bld) [Volume fraction] 42.1 % Normal 34.0 - 46.0 % AO Workflow SS Hemoglobin (Bld) [Mass/Vol] 13.9 G/dL Normal 12.0 - 16.0 G/dL AO Workflow SS Iron [Mass/Vol] 83 ug/dL Normal 50 - 170 mcg/dL AO ADM SS Lymphocytes (Bld) [#/Vol] 1.8 103/mcL Normal 0.9 - 4.3 10^3/mcL AO Workflow SS Lymphocytes/100 WBC (Bld) 25.4 % Normal 20.0 - 40.0 % AO Workflow SS Magnesium [Mass/Vol] 1.8 mg/dL Normal 1.8 - 2 .4 mg/dL AO ADM SS MCH (RBC) [Entitic mass] 29.4 pg Normal 27.0 - 33.0 pg AO Workflow SS MCHC 33.0 G/dL Normal 32.0 - 36.0 G/dL AO Workflow SS MCV (RBC) [Entitic vol] 89.3 fL Normal 80.0 - 99.0 fL AO Workflow SS Monocytes (Bld) [#/Vol] 0.6 103/mcL Normal 0.1 - 1.4 10^3/mcL AO Workflow SS Monocytes/100 WBC (Bld) 8.2 % Normal 2.0 - 13.0 % AO Workflow SS Neutrophils (Bld) [#/Vol] 4.6 103/mcL Normal 2.3 - 8.1 10^3/mcL AO Workflow SS Neutrophils/100 WBC (Bld) 64.1 % Normal 50.0 - 75.0 % AO Workflow SS Parathyrin.intact [Mass/Vol] 69.1 pg/mL Normal 18.5 - 88.0 pg/mL AH ADM SS Platelet mean volume (Bld) [Entitic vol] 8.6 fL Normal 6.6 - 10.5 fL AO Workflow SS Platelets (Bld) [#/Vol] 227 103/mcL Normal 150 - 450 10^3/mcL AO Workflow SS Potassium [Moles/Vol] 4.0 mmol/L Normal 3.5 - 5.1 mmol/L AO ADM SS Protein [Mass/Vol] 8.0 G/dL Normal 6.4 - 8.2 G/dL AO ADM SS RBC (Bld) [#/Vol] 4.72 106/mcL Normal 4.10 - 5.30 10^6/mcL AO Workflow SS Sodium [Moles/Vol] 141 mmol/L Normal 136 - 145 mmol/L AO ADM SS Urea nitrogen [Mass/Vol] 18 mg/dL Normal 7 - 18 mg/dL AO ADM SS Urea nitrogen/Creatinine [Mass ratio] 21 ratio Normal 7 - 27 ratio AO ADM SS WBC (Bld) [#/Vol] 7.1 103/mcL Normal 4.5 - 10.8 10^3/mcL AO Workflow SS LABORATORYOrdered By: Julee Garcia on 05-22-2025 Cholesterol [Mass/Vol] 184 mg/dL Normal 0 - 200 mg/dL AO ADM SS Comment on above: Interpretive Data: C holesterol Reference Interval: Less than 200 Desirable 200-239 Borderline high risk 240 and above High risk Cholesterol in HDL [Mass/Vol] 51 mg/dL Normal 40 - 60 mg/dL AO ADM SS Cholesterol in LDL [Mass/Vol] 109 mg/dL Normal 0 - 130 mg/dL AO ADM SS Triglyceride [Mass/Vol] 122 mg/dL Normal 0 - 150 mg/dL AO ADM SS Comment on above: Interpretive Data: T riglyceride Reference Interval: Less than 150 Normal 150-199 Borderline high risk 200-499 High risk 500 or higher Very high risk LIPIDon 05-22-2025 Cholesterol [Mass/Vol] 184 mg/dL Normal 0-200 [facility] Comment on above: Result Comment: Chol esterol Reference Interval: Less than 200 Desirable 200-239 Borderline high risk 240 and above High risk Performed By: #### C BC, ANEU, LIPID, VIDH, GFR, CMP, ADIFF #### [address] [address] #### PTH #### [address] [address] Cholesterol in HDL [Mass/Vol] 51 mg/dL Normal 40-60 [facility] Comment on above: Performed By: #### C BC, ANEU, LIPID, VIDH, GFR, CMP, ADIFF #### [address] [address] #### PTH #### [address] [address] Cholesterol in LDL [Mass/Vol] 109 mg/dL Normal 0-130 [facility] Comment on above: Performed By: #### C BC, ANEU, LIPID, VIDH, GFR, CMP, ADIFF #### [address] [address] #### PTH #### [address] [address] Triglyceride [Mass/Vol] 122 mg/dL Normal 0-150 [facility] Comment on above: Result Comment: Trig lyceride Reference Interval: Less than 150 Normal 150-199 Borderline high risk 200-499 High risk 500 or higher Very high risk Performed By: #### C BC, ANEU, LIPID, VIDH, GFR, CMP, ADIFF #### [address] [address] #### PTH #### [address] [address] MGon 05-22-2025 Magnesium [Mass/Vol] 1.8 mg/dL Normal 1.8-2.4 [facility] Comment on above: Performed By: #### C BC, ANEU, LIPID, VIDH, GFR, CMP, ADIFF #### [address] [address] #### PTH #### [address] [address] PTHon 05-22-2025 PTH, Intact 69.1 pg/mL Normal 18.5-88.0 [facility] Comment on above: Performed By: #### C BC, ANEU, LIPID, VIDH, GFR, CMP, ADIFF #### [address] [address] #### PTH #### [address] [address] VIDHon 05-22-2025 Vit. D 25-Hydroxy 51.2 ng/mL Normal [facility] Comment on above: Result Comment: Inte rpretive Values Based on Total 25(OH) Vitamin D: Deficient <20 ng/mL Insufficient 20 - <30 ng/mL Sufficient 30-100 ng/mL Performed By: #### C BC, ANEU, LIPID, VIDH, GFR, CMP, ADIFF #### [address] [address] #### PTH #### [address] [address] .GFRon 11-24-2024 GFR Non- 56 ml/min/1.73sqm Normal [facility] Comment on above: Result Comment: GFR Population mean for , Non- Americans Ages 20-29 = 116 mL/min/1.73 sq.m. Ages 30-39 = 107 mL/min/1.73 sq.m. Ages 40-49 = 99 mL/min/1.73 sq.m. Ages 50-59 = 93 mL/min/1.73 sq.m. Ages 60-69 = 85 mL/min/1.73 sq.m. Ages 70+ = 75 mL/min/1.73 sq.m. Chronic Kidney Disease: Less than 60 mL/min/1.73 square meters End Stage Renal Disease: Less than 15 mL/min/1.73 square meters Performed By: #### C BC, ANEU, LIPID, VIDH, GFR, CMP, ADIFF #### [address] [address] #### PTH #### [address] [address] GFR 68 ml/min/1.73sqm Normal [facility] Comment on above: Result Comment: GFR Population mean for , Non- Americans Ages 20-29 = 116 mL/min/1.73 sq.m. Ages 30-39 = 107 mL/min/1.73 sq.m. Ages 40-49 = 99 mL/min/1.73 sq.m. Ages 50-59 = 93 mL/min/1.73 sq.m. Ages 60-69 = 85 mL/min/1.73 sq.m. Ages 70+ = 75 mL/min/1.73 sq.m. Chronic Kidney Disease: Less than 60 mL/min/1.73 square meters End Stage Renal Disease: Less than 15 mL/min/1.73 square meters Performed By: #### C BC, ANEU, LIPID, VIDH, GFR, CMP, ADIFF #### [address] [address] #### PTH #### [address] [address] CMPon 11-24-2024 Albumin Level 3.5 G/dL Normal 3.4-4.8 [facility] Comment on above: Performed By: #### C BC, ANEU, LIPID, VIDH, GFR, CMP, ADIFF #### [address] [address] #### PTH #### [address] [address] Albumin/Globulin [Mass ratio] 0.8 {ratio} Low 1.1-2.5 [facility] Comment on above: Performed By: #### C BC, ANEU, LIPID, VIDH, GFR, CMP, ADIFF #### [address] [address] #### PTH #### [address] [address] ALP [Catalytic activity/Vol] 91 U/L Normal 40-135 [facility] Comment on above: Performed By: #### C BC, ANEU, LIPID, VIDH, GFR, CMP, ADIFF #### [address] [address] #### PTH #### [address] [address] ALT [Catalytic activity/Vol] 31 U/L Normal 14-59 [facility] Comment on above: Performed By: #### C BC, ANEU, LIPID, VIDH, GFR, CMP, ADIFF #### [place] [address] #### PTH #### [address] [address] AST [Catalytic activity/Vol] 31 U/L Normal 10-40 [facility] Comment on above: Performed By: #### C BC, ANEU, LIPID, VIDH, GFR, CMP, ADIFF #### [place] [address] #### PTH #### [address] [address] Bili Total 0.7 mg/dL Normal 0.2-1.0 [facility] Comment on above: Result Comment: Use of this assay is not recommended for patients undergoing treatment with eltrombopag due to the potential for falsely elevated results. Performed By: #### C BC, ANEU, LIPID, VIDH, GFR, CMP, ADIFF #### [place] [address] #### PTH #### [address] [address] BUN/Creatinine Ratio 21 ratio Normal 7-27 [facility] Comment on above: Performed By: #### C BC, ANEU, LIPID, VIDH, GFR, CMP, ADIFF #### [place] [address] #### PTH #### [address] [address] Calcium [Mass/Vol] 9.5 mg/dL Normal 8.4-10.2 [facility] Comment on above: Performed By: #### C BC, ANEU, LIPID, VIDH, GFR, CMP, ADIFF #### [address] [address] #### PTH #### [address] [address] Chloride [Moles/Vol] 103 mmol/L Normal 98-107 [facility] Comment on above: Performed By: #### C BC, ANEU, LIPID, VIDH, GFR, CMP, ADIFF #### [place] [address] #### PTH #### [address] [address] CO2 [Moles/Vol] 29 mmol/L Normal 23-31 [facility] Comment on above: Performed By: #### C BC, ANEU, LIPID, VIDH, GFR, CMP, ADIFF #### [place] [address] #### PTH #### [place] [address] Creatinine [Mass/Vol] 0.96 mg/dL Normal 0.55-1.02 [facility] Comment on above: Result Comment: Test ing performed on Siemens Dimension EXL analyzer using a modified kinetic Aisha technique. Performed By: #### C BC, ANEU, LIPID, VIDH, GFR, CMP, ADIFF #### [address] [address] #### PTH #### [place] [address] Electrolyte Balance 9.0 mEq/L Normal 4.0-15.0 [facility] Comment on above: Performed By: #### C BC, ANEU, LIPID, VIDH, GFR, CMP, ADIFF #### [place] [address] #### PTH #### [place] [address] Globulin 4.6 G/dL Normal [facility] Comment on above: Performed By: #### C BC, ANEU, LIPID, VIDH, GFR, CMP, ADIFF #### [address] [address] #### PTH #### [address] [address] Glucose [Mass/Vol] 86 mg/dL Normal 83-110 [facility] Comment on above: Performed By: #### C BC, ANEU, LIPID, VIDH, GFR, CMP, ADIFF #### [address] [address] #### PTH #### [address] [address] Potassium [Moles/Vol] 4.7 mmol/L Normal 3.5-5.1 [facility] Comment on above: Performed By: #### C BC, ANEU, LIPID, VIDH, GFR, CMP, ADIFF #### [address] [address] #### PTH #### [address] [address] Sodium [Moles/Vol] 141 mmol/L Normal 136-145 [facility] Comment on above: Performed By: #### C BC, ANEU, LIPID, VIDH, GFR, CMP, ADIFF #### [address] [address] #### PTH #### [address] [address] Total Protein 8.1 G/dL Normal 6.4-8.2 [facility] Comment on above: Performed By: #### C BC, ANEU, LIPID, VIDH, GFR, CMP, ADIFF #### [address] [address] #### PTH #### [address] [address] Urea nitrogen [Mass/Vol] 20 mg/dL High 7-18 [facility] Comment on above: Performed By: #### C BC, ANEU, LIPID, VIDH, GFR, CMP, ADIFF #### [address] [address] #### PTH #### [address] [address] LIPIDon 11-24-2024 Cholesterol [Mass/Vol] 152 mg/dL Normal 0-200 [facility] Comment on above: Result Comment: Chol esterol Reference Interval: Less than 200 Desirable 200-239 Borderline high risk 240 and above High risk Performed By: #### C BC, ANEU, LIPID, VIDH, GFR, CMP, ADIFF #### [address] [address] #### PTH #### [address] [address] Cholesterol in HDL [Mass/Vol] 47 mg/dL Normal 40-60 [facility] Comment on above: Performed By: #### C BC, ANEU, LIPID, VIDH, GFR, CMP, ADIFF #### [address] [address] #### PTH #### [place] [address] Cholesterol in LDL [Mass/Vol] 85 mg/dL Normal 0-130 [facility] Comment on above: Performed By: #### C BC, ANEU, LIPID, VIDH, GFR, CMP, ADIFF #### [address] [address] #### PTH #### [address] [address] Triglyceride [Mass/Vol] 100 mg/dL Normal 0-150 [facility] Comment on above: Result Comment: Trig lyceride Reference Interval: Less than 150 Normal 150-199 Borderline high risk 200-499 High risk 500 or higher Very high risk Performed By: #### C BC, ANEU, LIPID, VIDH, GFR, CMP, ADIFF #### [address] [address] #### PTH #### [address] [address] .Auto Diffon 11-23-2024 Basophil, Absolute 0.0 10 3/mcL Normal 0.0-0.2 [facility] Comment on above: Performed By: #### C BC, ANEU, LIPID, VIDH, GFR, CMP, ADIFF #### [address] [address] #### PTH #### [address] [address] Basophils/100 WBC (Bld) 0.3 % Normal 0.0-2.5 [facility] Comment on above: Performed By: #### C BC, ANEU, LIPID, VIDH, GFR, CMP, ADIFF #### [address] [address] #### PTH #### [address] [address] Eosinophil, Absolute 0.3 10 3/mcL Normal 0.0-0.7 [facility] Comment on above: Performed By: #### C BC, ANEU, LIPID, VIDH, GFR, CMP, ADIFF #### [address] [address] #### PTH #### [address] [address] Eosinophils/100 WBC (Bld) 3.1 % Normal 0.0-7.0 [facility] Comment on above: Performed By: #### C BC, ANEU, LIPID, VIDH, GFR, CMP, ADIFF #### [address] [address] #### PTH #### [address] [address] Lymphocyte, Absolute 2.0 10 3/mcL Normal 0.9-4.3 [facility] Comment on above: Performed By: #### C BC, ANEU, LIPID, VIDH, GFR, CMP, ADIFF #### [address] [address] #### PTH #### [address] [address] Lymphocytes/100 WBC (Bld) 24.8 % Normal 20.0-40.0 [facility] Comment on above: Performed By: #### C BC, ANEU, LIPID, VIDH, GFR, CMP, ADIFF #### [place] [address] #### PTH #### [address] [address] Monocyte, Absolute 0.7 10 3/mcL Normal 0.1-1.4 [facility] Comment on above: Performed By: #### C BC, ANEU, LIPID, VIDH, GFR, CMP, ADIFF #### [place] [address] #### PTH #### [place] [address] Monocytes/100 WBC (Bld) 8.5 % Normal 2.0-13.0 [facility] Comment on above: Performed By: #### C BC, ANEU, LIPID, VIDH, GFR, CMP, ADIFF #### [place] [address] #### PTH #### [place] [address] Neutrophils/100 WBC (Bld) 63.3 % Normal 50.0-75.0 [facility] Comment on above: Performed By: #### C BC, ANEU, LIPID, VIDH, GFR, CMP, ADIFF #### [place] [address] #### PTH #### [address] [address] .NEUABSon 11-23-2024 Neutrophil, Absolute 5.2 10 3/mcL Normal 2.3-8.1 [facility] Comment on above: Performed By: #### C BC, ANEU, LIPID, VIDH, GFR, CMP, ADIFF #### [place] [address] #### PTH #### [place] [address] CBCon 11-23-2024 Erythrocyte distribution width (RBC) [Ratio] 15.4 % Normal 11.5-15.5 [facility] Comment on above: Performed By: #### C BC, ANEU, LIPID, VIDH, GFR, CMP, ADIFF #### [place] [address] #### PTH #### [place] [address] Hematocrit (Bld) [Volume fraction] 40.4 % Normal 34.0-46.0 [facility] Comment on above: Performed By: #### C BC, ANEU, LIPID, VIDH, GFR, CMP, ADIFF #### [place] [address] #### PTH #### [place] [address] Hgb 13.4 G/dL Normal 12.0-16.0 [facility] Comment on above: Performed By: #### C BC, ANEU, LIPID, VIDH, GFR, CMP, ADIFF #### [place] [address] #### PTH #### [place] [address] MCH (RBC) [Entitic mass] 29.2 pg Normal 27.0-33.0 [facility] Comment on above: Performed By: #### C BC, ANEU, LIPID, VIDH, GFR, CMP, ADIFF #### [place] [address] #### PTH #### [place] [address] MCHC 33.2 G/dL Normal 32.0-36.0 [facility] Comment on above: Performed By: #### C BC, ANEU, LIPID, VIDH, GFR, CMP, ADIFF #### [place] [address] #### PTH #### [place] [address] MCV (RBC) [Entitic vol] 88.0 fL Normal 80.0-99.0 [facility] Comment on above: Performed By: #### C BC, ANEU, LIPID, VIDH, GFR, CMP, ADIFF #### [place] [address] #### PTH #### [address] [address] Platelet 207 10 3/mcL Normal 150-450 [facility] Comment on above: Performed By: #### C BC, ANEU, LIPID, VIDH, GFR, CMP, ADIFF #### [address] [address] #### PTH #### [place] [address] Platelet mean volume (Bld) [Entitic vol] 8.5 fL Normal 6.6-10.5 [facility] Comment on above: Performed By: #### C BC, ANEU, LIPID, VIDH, GFR, CMP, ADIFF #### [place] [address] #### PTH #### [place] [address] RBC 4.60 10 6/mcL Normal 4.10-5.30 [facility] Comment on above: Performed By: #### C BC, ANEU, LIPID, VIDH, GFR, CMP, ADIFF #### [place] [address] #### PTH #### [place] [address] WBC 8.3 10 3/mcL Normal 4.5-10.8 [facility] Comment on above: Performed By: #### C BC, ANEU, LIPID, VIDH, GFR, CMP, ADIFF #### [place] [address] #### PTH #### [place] [address] LABORATORYOrdered By: SYSTEM SYSTEM on 11-23-2024 25-hydroxyvitamin D3 [Mass/Vol] 48.4 ng/mL Invalid Interpretation Code AO ADM SS Comment on above: Interpretive Data: I nterpretive Values Based on Total 25(OH) Vitamin D: Deficient <20 ng/mL Insufficient 20 - <30 ng/mL Sufficient 30-100 ng/mL Albumin BCP dye [Mass/Vol] 3.5 G/dL Normal 3.4 - 4.8 G/dL AO ADM SS Albumin/Globulin [Mass ratio] 0.8 {ratio} Low 1.1 - 2.5 ratio AO ADM SS ALP [Catalytic activity/Vol] 91 U/L Normal 40 - 135 U/L AO ADM SS ALT With P-5'-P [Catalytic activity/Vol] 31 U/L Normal 14 - 59 U/L AO ADM SS AST With P-5'-P [Catalytic activity/Vol] 31 U/L Normal 10 - 40 U/L AO ADM SS Basophils (Bld) [#/Vol] 0.0 103/mcL Normal 0.0 - 0.2 10^3/mcL AO Workflow SS Basophils/100 WBC (Bld) 0.3 % Normal 0.0 - 2.5 % AO Workflow SS Bilirubin [Mass/Vol] 0.7 mg/dL Normal 0.2 - 1 .0 mg/dL AO ADM SS Comment on above: Interpretive Data: U se of this assay is not recommended for patients undergoing treatment with eltrombopag due to the potential for falsely elevated results. Calcium [Mass/Vol] 9.5 mg/dL Normal 8.4 - 10. 2 mg/dL AO ADM SS Chloride [Moles/Vol] 103 mmol/L Normal 98 - 10 7 mmol/L AO ADM SS CO2 [Moles/Vol] 29 mmol/L Normal 23 - 31 mmol/L AO ADM SS Creatinine [Mass/Vol] 0.96 mg/dL Normal 0.55 - 1.02 mg/dL AO ADM SS Comment on above: Interpretive Data: T esting performed on Siemens Dimension EXL analyzer using a modified kinetic Aisha technique. Electrolyte Balance 9.0 mEq/L Normal 4.0 - 15 .0 mEq/L AO ADM SS Eosinophil, Absolute 0.3 103/mcL Normal 0.0 - 0 .7 10^3/mcL AO Workflow SS Eosinophils/100 WBC (Bld) 3.1 % Normal 0.0 - 7.0 % AO Workflow SS Erythrocyte distribution width (RBC) [Ratio] 15.4 % Normal 11.5 - 15.5 % AO Workflow SS GFR/1.73 sq M.predicted among blacks MDRD (S/P/Bld) [Vol rate/Area] 68 ml/min/1.73sqm Invalid Interpretation Code AO Chemistry S Comment on above: Interpretive Data: GFR Population mean for , Non- Americans Ages 20-29 = 116 mL/min/1.73 sq.m. Ages 30-39 = 107 mL/min/1.73 sq.m. Ages 40-49 = 99 mL/min/1.73 sq.m. Ages 50-59 = 93 mL/min/1.73 sq.m. Ages 60-69 = 85 mL/min/1.73 sq.m. Ages 70+ = 75 mL/min/1.73 sq.m. Chronic Kidney Disease: Less than 60 mL/min/1.73 square meters End Stage Renal Disease: Less than 15 mL/min/1.73 square meters GFR/1.73 sq M.predicted among non-blacks MDRD (S/P/Bld) [Vol rate/Area] 56 ml/min/1.73sqm Invalid Interpretation Code AO Chemistry S Comment on above: Interpretive Data: GFR Population mean for , Non- Americans Ages 20-29 = 116 mL/min/1.73 sq.m. Ages 30-39 = 107 mL/min/1.73 sq.m. Ages 40-49 = 99 mL/min/1.73 sq.m. Ages 50-59 = 93 mL/min/1.73 sq.m. Ages 60-69 = 85 mL/min/1.73 sq.m. Ages 70+ = 75 mL/min/1.73 sq.m. Chronic Kidney Disease: Less than 60 mL/min/1.73 square meters End Stage Renal Disease: Less than 15 mL/min/1.73 square meters Globulin 4.6 G/dL Invalid Interpretation Code AO ADM SS Glucose [Mass/Vol] 86 mg/dL Normal 83 - 110 mg/dL AO ADM SS Hematocrit (Bld) [Volume fraction] 40.4 % Normal 34.0 - 46.0 % AO Workflow SS Hemoglobin (Bld) [Mass/Vol] 13.4 G/dL Normal 12.0 - 16.0 G/dL AO Workflow SS Lymphocytes (Bld) [#/Vol] 2.0 103/mcL Normal 0.9 - 4.3 10^3/mcL AO Workflow SS Lymphocytes/100 WBC (Bld) 24.8 % Normal 20.0 - 40.0 % AO Workflow SS MCH (RBC) [Entitic mass] 29.2 pg Normal 27.0 - 33.0 pg AO Workflow SS MCHC 33.2 G/dL Normal 32.0 - 36.0 G/dL AO Workflow SS MCV (RBC) [Entitic vol] 88.0 fL Normal 80.0 - 99.0 fL AO Workflow SS Monocytes (Bld) [#/Vol] 0.7 103/mcL Normal 0.1 - 1.4 10^3/mcL AO Workflow SS Monocytes/100 WBC (Bld) 8.5 % Normal 2.0 - 13.0 % AO Workflow SS Neutrophils (Bld) [#/Vol] 5.2 103/mcL Normal 2.3 - 8.1 10^3/mcL AO Workflow SS Neutrophils/100 WBC (Bld) 63.3 % Normal 50.0 - 75.0 % AO Workflow SS Parathyrin.intact [Mass/Vol] 83.3 pg/mL Normal 18.5 - 88.0 pg/mL AH ADM SS Platelet mean volume (Bld) [Entitic vol] 8.5 fL Normal 6.6 - 10.5 fL AO Workflow SS Platelets (Bld) [#/Vol] 207 103/mcL Normal 150 - 450 10^3/mcL AO Workflow SS Potassium [Moles/Vol] 4.7 mmol/L Normal 3.5 - 5.1 mmol/L AO ADM SS Protein [Mass/Vol] 8.1 G/dL Normal 6.4 - 8.2 G/dL AO ADM SS RBC (Bld) [#/Vol] 4.60 106/mcL Normal 4.10 - 5.30 10^6/mcL AO Workflow SS Sodium [Moles/Vol] 141 mmol/L Normal 136 - 145 mmol/L AO ADM SS Urea nitrogen [Mass/Vol] 20 mg/dL High 7 - 18 mg/dL AO ADM SS Urea nitrogen/Creatinine [Mass ratio] 21 ratio Normal 7 - 27 ratio AO ADM SS WBC (Bld) [#/Vol] 8.3 103/mcL Normal 4.5 - 10.8 10^3/mcL AO Workflow SS LABORATORYOrdered By: Nuha Segovia on 11-23-2024 Cholesterol [Mass/Vol] 152 mg/dL Normal 0 - 200 mg/dL AO ADM SS Comment on above: Interpretive Data: C holesterol Reference Interval: Less than 200 Desirable 200-239 Borderline high risk 240 and above High risk Cholesterol in HDL [Mass/Vol] 47 mg/dL Normal 40 - 60 mg/dL AO ADM SS Cholesterol in LDL [Mass/Vol] 85 mg/dL Normal 0 - 130 mg/dL AO ADM SS Triglyceride [Mass/Vol] 100 mg/dL Normal 0 - 150 mg/dL AO ADM SS Comment on above: Interpretive Data: T riglyceride Reference Interval: Less than 150 Normal 150-199 Borderline high risk 200-499 High risk 500 or higher Very high risk PTHon 11-23-2024 PTH, Intact 83.3 pg/mL Normal 18.5-88.0 [facility] Comment on above: Performed By: #### C BC, ANEU, LIPID, VIDH, GFR, CMP, ADIFF #### [place] [address] #### PTH #### [place] [address] VIDHon 11-23-2024 Vit. D 25-Hydroxy 48.4 ng/mL Normal [facility] Comment on above: Result Comment: Inte rpretive Values Based on Total 25(OH) Vitamin D: Deficient <20 ng/mL Insufficient 20 - <30 ng/mL Sufficient 30-100 ng/mL Performed By: #### C BC, ANEU, LIPID, VIDH, GFR, CMP, ADIFF #### [place] [address] #### PTH #### [address] [address] .Auto Diffon 05-11-2024 Basophil, Absolute 0.0 10 3/mcL Normal 0.0-0.2 [facility] ([place]) Comment on above: Performed By: #### A DIFF, ANEU, GFR, CMP, VIDH, CBC, LIPID #### [place] [address] #### PTH #### [place] [address] Basophils/100 WBC (Bld) 0.5 % Normal 0.0-2.5 [facility] ([place]) Comment on above: Performed By: #### A DIFF, ANEU, GFR, CMP, VIDH, CBC, LIPID #### [address] [address] #### PTH #### [address] [address] Eosinophil, Absolute 0.2 10 3/mcL Normal 0.0-0.4 [facility] ([place]) Comment on above: Performed By: #### A DIFF, ANEU, GFR, CMP, VIDH, CBC, LIPID #### [address] [address] #### PTH #### [address] [address] Eosinophils/100 WBC (Bld) 3.0 % Normal 0.0-7.0 [facility] ([place]) Comment on above: Performed By: #### A DIFF, ANEU, GFR, CMP, VIDH, CBC, LIPID #### [address] [address] #### PTH #### [address] [address] Lymphocyte, Absolute 1.8 10 3/mcL Normal 0.8-3.9 [facility] ([place]) Comment on above: Performed By: #### A DIFF, ANEU, GFR, CMP, VIDH, CBC, LIPID #### [address] [address] #### PTH #### [address] [address] Lymphocytes/100 WBC (Bld) 24.2 % Normal 10.0-50.0 [facility] ([place]) Comment on above: Performed By: #### A DIFF, ANEU, GFR, CMP, VIDH, CBC, LIPID #### [address] [address] #### PTH #### [address] [address] Monocyte, Absolute 0.6 10 3/mcL Normal 0.2-1.0 [facility] ([place]) Comment on above: Performed By: #### A DIFF, ANEU, GFR, CMP, VIDH, CBC, LIPID #### [address] [address] #### PTH #### [address] [address] Monocytes/100 WBC (Bld) 7.6 % Normal 1.7-13.0 [facility] ([place]) Comment on above: Performed By: #### A DIFF, ANEU, GFR, CMP, VIDH, CBC, LIPID #### [address] [address] #### PTH #### [address] [address] Neutrophils/100 WBC (Bld) 64.7 % Normal 37.0-80.0 [facility] ([place]) Comment on above: Performed By: #### A DIFF, ANEU, GFR, CMP, VIDH, CBC, LIPID #### [address] [address] #### PTH #### [address] [address] .GFRon 05-11-2024 GFR 63 ml/min/1.73sqm Normal [facility] ([place]) Comment on above: Result Comment: GFR Population mean for , Non- Americans Ages 20-29 = 116 mL/min/1.73 sq.m. Ages 30-39 = 107 mL/min/1.73 sq.m. Ages 40-49 = 99 mL/min/1.73 sq.m. Ages 50-59 = 93 mL/min/1.73 sq.m. Ages 60-69 = 85 mL/min/1.73 sq.m. Ages 70+ = 75 mL/min/1.73 sq.m. Chronic Kidney Disease: Less than 60 mL/min/1.73 square meters End Stage Renal Disease: Less than 15 mL/min/1.73 square meters Performed By: #### A DIFF, ANEU, GFR, CMP, VIDH, CBC, LIPID #### [address] [address] #### PTH #### [address] [address] GFR Non- 52 ml/min/1.73sqm Normal [facility] ([place]) Comment on above: Result Comment: GFR Population mean for , Non- Americans Ages 20-29 = 116 mL/min/1.73 sq.m. Ages 30-39 = 107 mL/min/1.73 sq.m. Ages 40-49 = 99 mL/min/1.73 sq.m. Ages 50-59 = 93 mL/min/1.73 sq.m. Ages 60-69 = 85 mL/min/1.73 sq.m. Ages 70+ = 75 mL/min/1.73 sq.m. Chronic Kidney Disease: Less than 60 mL/min/1.73 square meters End Stage Renal Disease: Less than 15 mL/min/1.73 square meters Performed By: #### A DIFF, ANEU, GFR, CMP, VIDH, CBC, LIPID #### [address] [address] #### PTH #### [address] [address] .NEUABSon 05-11-2024 Neutrophil, Absolute 4.9 10 3/mcL Normal 2.9-6.2 [facility] ([place]) Comment on above: Performed By: #### A DIFF, ANEU, GFR, CMP, VIDH, CBC, LIPID #### [address] [address] #### PTH #### [address] [address] CBCon 05-11-2024 Erythrocyte distribution width (RBC) [Ratio] 15.5 % High 11.5-14.5 [facility] ([place]) Comment on above: Performed By: #### A MAXIM, VIDH, CBC, LIPID, ADIFF, TSH, GFR, CMP #### [address] [address] #### PTH #### [address] [address] Hematocrit (Bld) [Volume fraction] 41.2 % Normal 37.0-47.0 [facility] ([place]) Comment on above: Performed By: #### A MAXIM, VIDH, CBC, LIPID, ADIFF, TSH, GFR, CMP #### [place] [address] #### PTH #### [place] [address] Hgb 13.8 G/dL Normal 12.0-16.0 [facility] ([place]) Comment on above: Performed By: #### A MAXIM, VIDH, CBC, LIPID, ADIFF, TSH, GFR, CMP #### [place] [address] #### PTH #### [place] [address] MCH (RBC) [Entitic mass] 29.4 pg Normal 27.0-31.2 [facility] ([place]) Comment on above: Performed By: #### A MAXIM, VIDH, CBC, LIPID, ADIFF, TSH, GFR, CMP #### [place] [address] #### PTH #### [place] [address] MCHC 33.4 G/dL Normal 33.0-37.0 [facility] ([place]) Comment on above: Performed By: #### A MAXIM, VIDH, CBC, LIPID, ADIFF, TSH, GFR, CMP #### [place] [address] #### PTH #### [place] [address] MCV (RBC) [Entitic vol] 87.9 fL Normal 80.0-94.0 [facility] ([place]) Comment on above: Performed By: #### A MAXIM, VIDH, CBC, LIPID, ADIFF, TSH, GFR, CMP #### [place] [address] #### PTH #### [place] [address] Platelet 201 10 3/mcL Normal 130-400 [facility] ([place]) Comment on above: Performed By: #### A MAXIM, VIDH, CBC, LIPID, ADIFF, TSH, GFR, CMP #### [place] [address] #### PTH #### [place] [address] Platelet mean volume (Bld) [Entitic vol] 8.5 fL Normal 7.4-10.4 [facility] ([place]) Comment on above: Performed By: #### A MAXIM, VIDH, CBC, LIPID, ADIFF, TSH, GFR, CMP #### [place] [address] #### PTH #### [place] [address] RBC 4.69 10 6/mcL Normal 4.20-5.40 [facility] ([place]) Comment on above: Performed By: #### A MAXIM, VIDH, CBC, LIPID, ADIFF, TSH, GFR, CMP #### [place] [address] #### PTH #### [place] [address] WBC 7.6 10 3/mcL Normal 4.6-10.8 [facility] ([place]) Comment on above: Performed By: #### A MAXIM, VIDH, CBC, LIPID, ADIFF, TSH, GFR, CMP #### [place] [address] #### PTH #### [place] [address] CMPon 05-11-2024 Albumin Level 3.4 G/dL Normal 3.4-4.8 [facility] ([place]) Comment on above: Performed By: #### A DIFF, ANEU, GFR, CMP, VIDH, CBC, LIPID #### [place] [address] #### PTH #### [place] [address] Albumin/Globulin [Mass ratio] 0.8 {ratio} Low 1.1-2.5 [facility] ([place]) Comment on above: Performed By: #### A DIFF, ANEU, GFR, CMP, VIDH, CBC, LIPID #### [place] [address] #### PTH #### [address] [address] ALP [Catalytic activity/Vol] 91 U/L Normal 40-135 [facility] ([place]) Comment on above: Performed By: #### A DIFF, ANEU, GFR, CMP, VIDH, CBC, LIPID #### [place] [address] #### PTH #### [address] [address] ALT [Catalytic activity/Vol] 26 U/L Normal 14-59 [facility] ([place]) Comment on above: Performed By: #### A DIFF, ANEU, GFR, CMP, VIDH, CBC, LIPID #### [place] [address] #### PTH #### [place] [address] AST [Catalytic activity/Vol] 20 U/L Normal 10-40 [facility] ([place]) Comment on above: Performed By: #### A DIFF, ANEU, GFR, CMP, VIDH, CBC, LIPID #### [place] [address] #### PTH #### [address] [address] Bili Total 0.9 mg/dL Normal 0.2-1.0 [facility] ([place]) Comment on above: Result Comment: Use of this assay is not recommended for patients undergoing treatment with eltrombopag due to the potential for falsely elevated results. Performed By: #### A DIFF, ANEU, GFR, CMP, VIDH, CBC, LIPID #### [place] [address] #### PTH #### [place] [address] BUN/Creatinine Ratio 16 ratio Normal 7-27 [facility] ([place]) Comment on above: Performed By: #### A DIFF, ANEU, GFR, CMP, VIDH, CBC, LIPID #### [address] [address] #### PTH #### [address] [address] Calcium [Mass/Vol] 9.8 mg/dL Normal 8.4-10.2 [facility] ([place]) Comment on above: Performed By: #### A DIFF, ANEU, GFR, CMP, VIDH, CBC, LIPID #### [address] [address] #### PTH #### [address] [address] Chloride [Moles/Vol] 102 mmol/L Normal 98-107 [facility] ([place]) Comment on above: Performed By: #### A DIFF, ANEU, GFR, CMP, VIDH, CBC, LIPID #### [address] [address] #### PTH #### [address] [address] CO2 [Moles/Vol] 32 mmol/L High 23-31 [facility] ([place]) Comment on above: Performed By: #### A DIFF, ANEU, GFR, CMP, VIDH, CBC, LIPID #### [address] [address] #### PTH #### [address] [address] Creatinine [Mass/Vol] 1.02 mg/dL Normal 0.55-1.02 [facility] ([place]) Comment on above: Performed By: #### A DIFF, ANEU, GFR, CMP, VIDH, CBC, LIPID #### [address] [address] #### PTH #### [address] [address] Electrolyte Balance 4.0 mEq/L Normal 4.0-15.0 [facility] ([place]) Comment on above: Performed By: #### A DIFF, ANEU, GFR, CMP, VIDH, CBC, LIPID #### [address] [address] #### PTH #### [address] [address] Globulin 4.2 G/dL Normal [facility] ([place]) Comment on above: Performed By: #### A DIFF, ANEU, GFR, CMP, VIDH, CBC, LIPID #### [address] [address] #### PTH #### [address] [address] Glucose [Mass/Vol] 92 mg/dL Normal 83-110 [facility] ([place]) Comment on above: Performed By: #### A DIFF, ANEU, GFR, CMP, VIDH, CBC, LIPID #### [address] [address] #### PTH #### [address] [address] Potassium [Moles/Vol] 4.5 mmol/L Normal 3.5-5.1 [facility] ([place]) Comment on above: Performed By: #### A DIFF, ANEU, GFR, CMP, VIDH, CBC, LIPID #### [address] [address] #### PTH #### [address] [address] Sodium [Moles/Vol] 138 mmol/L Normal 136-145 [facility] ([place]) Comment on above: Performed By: #### A DIFF, ANEU, GFR, CMP, VIDH, CBC, LIPID #### [address] [address] #### PTH #### [address] [address] Total Protein 7.6 G/dL Normal 6.4-8.2 [facility] ([place]) Comment on above: Performed By: #### A DIFF, ANEU, GFR, CMP, VIDH, CBC, LIPID #### [address] [address] #### PTH #### [address] [address] Urea nitrogen [Mass/Vol] 16 mg/dL Normal 7-18 [facility] ([place]) Comment on above: Performed By: #### A DIFF, ANEU, GFR, CMP, VIDH, CBC, LIPID #### [address] [place], [place] [address] #### PTH #### [facility] [address] [place] [id number] LABORATORYOrdered By: SYSTEM SYSTEM on 05-11-2024 25-hydroxyvitamin D3 [Mass/Vol] 46.7 ng/mL Invalid Interpretation Code AO ADM SS Comment on above: Interpretive Data: I nterpretive Values Based on Total 25(OH) Vitamin D: Deficient <20 ng/mL Insufficient 20 - <30 ng/mL Sufficient 30-100 ng/mL Albumin BCP dye [Mass/Vol] 3.4 G/dL Normal 3.4 - 4.8 G/dL AO ADM SS Albumin/Globulin [Mass ratio] 0.8 {ratio} Low 1.1 - 2.5 ratio AO ADM SS ALP [Catalytic activity/Vol] 91 U/L Normal 40 - 135 U/L AO ADM SS ALT With P-5'-P [Catalytic activity/Vol] 26 U/L Normal 14 - 59 U/L AO ADM SS AST With P-5'-P [Catalytic activity/Vol] 20 U/L Normal 10 - 40 U/L AO ADM SS Basophil, Absolute 0.0 103/mcL Normal 0.0 - 0.2 10^3/mcL AO Workflow SS Basophils/100 WBC (Bld) 0.5 % Normal 0.0 - 2.5 % AO Workflow SS Bilirubin [Mass/Vol] 0.9 mg/dL Normal 0.2 - 1 .0 mg/dL AO ADM SS Comment on above: Interpretive Data: U se of this assay is not recommended for patients undergoing treatment with eltrombopag due to the potential for falsely elevated results. Calcium [Mass/Vol] 9.8 mg/dL Normal 8.4 - 10. 2 mg/dL AO ADM SS Chloride [Moles/Vol] 102 mmol/L Normal 98 - 10 7 mmol/L AO ADM SS CO2 [Moles/Vol] 32 mmol/L High 23 - 31 mmol/L AO ADM SS Creatinine [Mass/Vol] 1.02 mg/dL Normal 0.55 - 1.02 mg/dL AO ADM SS Electrolyte Balance 4.0 mEq/L Normal 4.0 - 15 .0 mEq/L AO ADM SS Eosinophil, Absolute 0.2 103/mcL Normal 0.0 - 0 .4 10^3/mcL AO Workflow SS Eosinophils/100 WBC (Bld) 3.0 % Normal 0.0 - 7.0 % AO Workflow SS Erythrocyte distribution width (RBC) [Ratio] 15.5 % High 11.5 - 14.5 % AO Workflow SS GFR/1.73 sq M.predicted among blacks MDRD (S/P/Bld) [Vol rate/Area] 63 ml/min/1.73sqm Invalid Interpretation Code AO Chemistry S Comment on above: Interpretive Data: GFR Population mean for , Non- Americans Ages 20-29 = 116 mL/min/1.73 sq.m. Ages 30-39 = 107 mL/min/1.73 sq.m. Ages 40-49 = 99 mL/min/1.73 sq.m. Ages 50-59 = 93 mL/min/1.73 sq.m. Ages 60-69 = 85 mL/min/1.73 sq.m. Ages 70+ = 75 mL/min/1.73 sq.m. Chronic Kidney Disease: Less than 60 mL/min/1.73 square meters End Stage Renal Disease: Less than 15 mL/min/1.73 square meters GFR/1.73 sq M.predicted among non-blacks MDRD (S/P/Bld) [Vol rate/Area] 52 ml/min/1.73sqm Invalid Interpretation Code AO Chemistry S Comment on above: Interpretive Data: GFR Population mean for , Non- Americans Ages 20-29 = 116 mL/min/1.73 sq.m. Ages 30-39 = 107 mL/min/1.73 sq.m. Ages 40-49 = 99 mL/min/1.73 sq.m. Ages 50-59 = 93 mL/min/1.73 sq.m. Ages 60-69 = 85 mL/min/1.73 sq.m. Ages 70+ = 75 mL/min/1.73 sq.m. Chronic Kidney Disease: Less than 60 mL/min/1.73 square meters End Stage Renal Disease: Less than 15 mL/min/1.73 square meters Globulin 4.2 G/dL Invalid Interpretation Code AO ADM SS Glucose [Mass/Vol] 92 mg/dL Normal 83 - 110 mg/dL AO ADM SS Hematocrit (Bld) [Volume fraction] 41.2 % Normal 37.0 - 47.0 % AO Workflow SS Hemoglobin (Bld) [Mass/Vol] 13.8 G/dL Normal 12.0 - 16.0 G/dL AO Workflow SS Lymphocyte, Absolute 1.8 103/mcL Normal 0.8 - 3 .9 10^3/mcL AO Workflow SS Lymphocytes/100 WBC (Bld) 24.2 % Normal 10.0 - 50.0 % AO Workflow SS MCH (RBC) [Entitic mass] 29.4 pg Normal 27.0 - 31.2 pg AO Workflow SS MCHC 33.4 G/dL Normal 33.0 - 37.0 G/dL AO Workflow SS MCV (RBC) [Entitic vol] 87.9 fL Normal 80.0 - 94.0 fL AO Workflow SS Monocyte, Absolute 0.6 103/mcL Normal 0.2 - 1.0 10^3/mcL AO Workflow SS Monocytes/100 WBC (Bld) 7.6 % Normal 1.7 - 13.0 % AO Workflow SS Neutrophil, Absolute 4.9 103/mcL Normal 2.9 - 6 .2 10^3/mcL AO Workflow SS Neutrophils/100 WBC (Bld) 64.7 % Normal 37.0 - 80.0 % AO Workflow SS Parathyrin.intact [Mass/Vol] 95.6 pg/mL High 18.5 - 88.0 pg/mL AH ADM SS Platelet mean volume (Bld) [Entitic vol] 8.5 fL Normal 7.4 - 10.4 fL AO Workflow SS Platelets (Bld) [#/Vol] 201 103/mcL Normal 130 - 400 10^3/mcL AO Workflow SS Potassium [Moles/Vol] 4.5 mmol/L Normal 3.5 - 5.1 mmol/L AO ADM SS Protein [Mass/Vol] 7.6 G/dL Normal 6.4 - 8.2 G/dL AO ADM SS RBC (Bld) [#/Vol] 4.69 106/mcL Normal 4.20 - 5.40 10^6/mcL AO Workflow SS Sodium [Moles/Vol] 138 mmol/L Normal 136 - 145 mmol/L AO ADM SS TSH Qn 1.50 m[IU]/L Normal 0.36 - 3.74 mcIU/mL AO ADM SS Urea nitrogen [Mass/Vol] 16 mg/dL Normal 7 - 18 mg/dL AO ADM SS Urea nitrogen/Creatinine [Mass ratio] 16 ratio Normal 7 - 27 ratio AO ADM SS WBC (Bld) [#/Vol] 7.6 103/mcL Normal 4.6 - 10.8 10^3/mcL AO Workflow SS LABORATORYOrdered By: Flako Mclain on 05-11-2024 Cholesterol [Mass/Vol] 159 mg/dL Normal 0 - 200 mg/dL AO ADM SS Comment on above: Interpretive Data: C holesterol Reference Interval: Less than 200 Desirable 200-239 Borderline high risk 240 and above High risk Cholesterol in HDL [Mass/Vol] 46 mg/dL Normal 40 - 60 mg/dL AO ADM SS Cholesterol in LDL [Mass/Vol] 90 mg/dL Normal 0 - 130 mg/dL AO ADM SS Triglyceride [Mass/Vol] 117 mg/dL Normal 0 - 150 mg/dL AO ADM SS Comment on above: Interpretive Data: T riglyceride Reference Interval: Less than 150 Normal 150-199 Borderline high risk 200-499 High risk 500 or higher Very high risk LIPIDon 05-11-2024 Cholesterol [Mass/Vol] 159 mg/dL Normal 0-200 [facility] ([place]) Comment on above: Result Comment: Chol esterol Reference Interval: Less than 200 Desirable 200-239 Borderline high risk 240 and above High risk Performed By: #### A DIFF, ANEU, GFR, CMP, VIDH, CBC, LIPID #### [address] [address] #### PTH #### [address] [address] Cholesterol in HDL [Mass/Vol] 46 mg/dL Normal 40-60 [facility] ([place]) Comment on above: Performed By: #### A DIFF, ANEU, GFR, CMP, VIDH, CBC, LIPID #### [address] [address] #### PTH #### [address] [address] Cholesterol in LDL [Mass/Vol] 90 mg/dL Normal 0-130 [facility] ([place]) Comment on above: Performed By: #### A DIFF, ANEU, GFR, CMP, VIDH, CBC, LIPID #### [address] [address] #### PTH #### [address] [address] Triglyceride [Mass/Vol] 117 mg/dL Normal 0-150 [facility] ([place]) Comment on above: Result Comment: Trig lyceride Reference Interval: Less than 150 Normal 150-199 Borderline high risk 200-499 High risk 500 or higher Very high risk Performed By: #### A DIFF, ANEU, GFR, CMP, VIDH, CBC, LIPID #### [address] [address] #### PTH #### [place] [address] PTHon 05-11-2024 PTH, Intact 95.6 pg/mL High 18.5-88.0 [facility] ([place]) Comment on above: Performed By: #### A DIFF, ANEU, GFR, CMP, VIDH, CBC, LIPID #### [address] [address] #### PTH #### [place] [address] TSHon 05-11-2024 TSH Qn 1.50 m[IU]/L Normal 0.36-3.74 [facility] ([place]) Comment on above: Performed By: #### A DIFF, ANEU, GFR, CMP, VIDH, CBC, LIPID #### [address] [address] #### PTH #### [place] [address] VIDHon 05-11-2024 Vit. D 25-Hydroxy 46.7 ng/mL Normal [facility] ([place]) Comment on above: Result Comment: Inte rpretive Values Based on Total 25(OH) Vitamin D: Deficient <20 ng/mL Insufficient 20 - <30 ng/mL Sufficient 30-100 ng/mL Performed By: #### A DIFF, ANEU, GFR, CMP, VIDH, CBC, LIPID #### [address] [address] #### PTH #### [address] [address] RENINon 11-03-2023 Renin Activity 2.032 ng/mL/hr Normal 0.167-5.38 0 [facility] ([place]) Comment on above: Result Comment: This test was developed and its performance characteristics determined by [facility]. It has not been cleared or approved by the Food and Drug Administration. Performed At: [facility] [id number] Isaias Bender MD Ph:[phone] Performed By: #### 0 [id number] #### [place] [address] .Auto Diffon 10-28-2023 Basophil, Absolute 0.0 10 3/mcL Normal 0.0-0.2 [facility] ([place]) Comment on above: Performed By: #### A DIFF, ANEU, GFR, CMP, VIDH, CBC, LIPID #### [place] [address] #### PTH #### [address] [address] Basophils/100 WBC (Bld) 0.3 % Normal 0.0-2.5 [facility] ([place]) Comment on above: Performed By: #### A DIFF, ANEU, GFR, CMP, VIDH, CBC, LIPID #### [place] [address] #### PTH #### [address] [address] Eosinophil, Absolute 0.2 10 3/mcL Normal 0.0-0.4 [facility] ([place]) Comment on above: Performed By: #### A DIFF, ANEU, GFR, CMP, VIDH, CBC, LIPID #### [address] [address] #### PTH #### [address] [address] Eosinophils/100 WBC (Bld) 2.2 % Normal 0.0-7.0 [facility] ([place]) Comment on above: Performed By: #### A DIFF, ANEU, GFR, CMP, VIDH, CBC, LIPID #### [address] [address] #### PTH #### [address] [address] Lymphocyte, Absolute 1.9 10 3/mcL Normal 0.8-3.9 [facility] ([place]) Comment on above: Performed By: #### A DIFF, ANEU, GFR, CMP, VIDH, CBC, LIPID #### [address] [address] #### PTH #### [address] [address] Lymphocytes/100 WBC (Bld) 27.0 % Normal 10.0-50.0 [facility] ([place]) Comment on above: Performed By: #### A DIFF, ANEU, GFR, CMP, VIDH, CBC, LIPID #### [address] [address] #### PTH #### [address] [address] Monocyte, Absolute 0.4 10 3/mcL Normal 0.2-1.0 [facility] ([place] Comment on above: Performed By: #### A DIFF, ANEU, GFR, CMP, VIDH, CBC, LIPID #### [address] [address] #### PTH #### [address] [address] Monocytes/100 WBC (Bld) 6.1 % Normal 1.7-13.0 [facility] ([place]) Comment on above: Performed By: #### A DIFF, ANEU, GFR, CMP, VIDH, CBC, LIPID #### [address] [address] #### PTH #### [address] [address] Neutrophils/100 WBC (Bld) 64.4 % Normal 37.0-80.0 [facility] ([place]) Comment on above: Performed By: #### A DIFF, ANEU, GFR, CMP, VIDH, CBC, LIPID #### [address] [address] #### PTH #### [address] [address] .GFRon 10-28-2023 GFR Non- 56 ml/min/1.73sqm Normal [facility] ([place]) Comment on above: Result Comment: GFR Population mean for , Non- Americans Ages 20-29 = 116 mL/min/1.73 sq.m. Ages 30-39 = 107 mL/min/1.73 sq.m. Ages 40-49 = 99 mL/min/1.73 sq.m. Ages 50-59 = 93 mL/min/1.73 sq.m. Ages 60-69 = 85 mL/min/1.73 sq.m. Ages 70+ = 75 mL/min/1.73 sq.m. Chronic Kidney Disease: Less than 60 mL/min/1.73 square meters End Stage Renal Disease: Less than 15 mL/min/1.73 square meters Performed By: #### A DIFF, ANEU, GFR, CMP, VIDH, CBC, LIPID #### [address] [address] #### PTH #### [address] [address] GFR 67 ml/min/1.73sqm Normal [facility] ([place]) Comment on above: Result Comment: GFR Population mean for , Non- Americans Ages 20-29 = 116 mL/min/1.73 sq.m. Ages 30-39 = 107 mL/min/1.73 sq.m. Ages 40-49 = 99 mL/min/1.73 sq.m. Ages 50-59 = 93 mL/min/1.73 sq.m. Ages 60-69 = 85 mL/min/1.73 sq.m. Ages 70+ = 75 mL/min/1.73 sq.m. Chronic Kidney Disease: Less than 60 mL/min/1.73 square meters End Stage Renal Disease: Less than 15 mL/min/1.73 square meters Performed By: #### A DIFF, ANEU, GFR, CMP, VIDH, CBC, LIPID #### [address] [address] #### PTH #### [address] [address] .NEUABSon 10-28-2023 Neutrophil, Absolute 4.6 10 3/mcL Normal 2.9-6.2 [facility] ([place] Comment on above: Performed By: #### A DIFF, ANEU, GFR, CMP, VIDH, CBC, LIPID #### [place] [address] #### PTH #### [place] [address] CBCon 10-28-2023 Erythrocyte distribution width (RBC) [Ratio] 14.6 % High 11.5-14.5 [facility] ([place]) Comment on above: Performed By: #### A DIFF, ANEU, GFR, CMP, VIDH, CBC, LIPID #### [place] [address] #### PTH #### [place] [address] Hematocrit (Bld) [Volume fraction] 42.2 % Normal 37.0-47.0 [facility] ([place]) Comment on above: Performed By: #### A DIFF, ANEU, GFR, CMP, VIDH, CBC, LIPID #### [place] [address] #### PTH #### [place] [address] Hgb 14.3 G/dL Normal 12.0-16.0 [facility] ([place]) Comment on above: Performed By: #### A DIFF, ANEU, GFR, CMP, VIDH, CBC, LIPID #### [address] [address] #### PTH #### [place] [address] MCH (RBC) [Entitic mass] 29.7 pg Normal 27.0-31.2 [facility] ([place]) Comment on above: Performed By: #### A DIFF, ANEU, GFR, CMP, VIDH, CBC, LIPID #### [place] [address] #### PTH #### [place] [address] MCHC 34.0 G/dL Normal 33.0-37.0 [facility] ([place] Comment on above: Performed By: #### A DIFF, ANEU, GFR, CMP, VIDH, CBC, LIPID #### [place] [address] #### PTH #### [place] [address] MCV (RBC) [Entitic vol] 87.5 fL Normal 80.0-94.0 [facility] ([place] Comment on above: Performed By: #### A DIFF, ANEU, GFR, CMP, VIDH, CBC, LIPID #### [place] [address] #### PTH #### [place] [address] Platelet 217 10 3/mcL Normal 130-400 [facility] ([place] Comment on above: Performed By: #### A DIFF, ANEU, GFR, CMP, VIDH, CBC, LIPID #### [place] [address] #### PTH #### [place] [address] Platelet mean volume (Bld) [Entitic vol] 8.6 fL Normal 7.4-10.4 [facility] ([place]) Comment on above: Performed By: #### A DIFF, ANEU, GFR, CMP, VIDH, CBC, LIPID #### [place] [address] #### PTH #### [place] [address] RBC 4.82 10 6/mcL Normal 4.20-5.40 [facility] ([place] Comment on above: Performed By: #### A DIFF, ANEU, GFR, CMP, VIDH, CBC, LIPID #### [address] [address] #### PTH #### [address] [address] WBC 7.2 10 3/mcL Normal 4.6-10.8 [facility] ([place] Comment on above: Performed By: #### A DIFF, ANEU, GFR, CMP, VIDH, CBC, LIPID #### [address] [address] #### PTH #### [place] [address] CMPon 10-28-2023 Albumin Level 3.3 G/dL Low 3.4-4.8 [facility] ([place]) Comment on above: Performed By: #### A DIFF, ANEU, GFR, CMP, VIDH, CBC, LIPID #### [place] [address] #### PTH #### [address] [address] Albumin/Globulin [Mass ratio] 0.7 {ratio} Low 1.1-2.5 [facility] ([place]) Comment on above: Performed By: #### A DIFF, ANEU, GFR, CMP, VIDH, CBC, LIPID #### [address] [address] #### PTH #### [address] [address] ALP [Catalytic activity/Vol] 112 U/L Normal 40-135 [facility] ([place] Comment on above: Performed By: #### A DIFF, ANEU, GFR, CMP, VIDH, CBC, LIPID #### [address] [address] #### PTH #### [address] [address] ALT [Catalytic activity/Vol] 26 U/L Normal 14-59 [facility] ([place] Comment on above: Performed By: #### A DIFF, ANEU, GFR, CMP, VIDH, CBC, LIPID #### [address] [address] #### PTH #### [address] [address] AST [Catalytic activity/Vol] 24 U/L Normal 10-40 [facility] ([place] Comment on above: Performed By: #### A DIFF, ANEU, GFR, CMP, VIDH, CBC, LIPID #### [place] [address] #### PTH #### [address] [address] Bili Total 0.6 mg/dL Normal 0.2-1.0 [facility] ([place]) Comment on above: Result Comment: Use of this assay is not recommended for patients undergoing treatment with eltrombopag due to the potential for falsely elevated results. Performed By: #### A DIFF, ANEU, GFR, CMP, VIDH, CBC, LIPID #### [place] [address] #### PTH #### [address] [address] BUN/Creatinine Ratio 16 ratio Normal 7-27 [facility] ([place] Comment on above: Performed By: #### A DIFF, ANEU, GFR, CMP, VIDH, CBC, LIPID #### [place] [address] #### PTH #### [place] [id number] Calcium [Mass/Vol] 9.9 mg/dL Normal 8.4-10.2 [facility] ([place]) Comment on above: Performed By: #### A DIFF, ANEU, GFR, CMP, VIDH, CBC, LIPID #### [place] [address] #### PTH #### [address] [address] Chloride [Moles/Vol] 101 mmol/L Normal 98-107 [facility] ([place] Comment on above: Performed By: #### A DIFF, ANEU, GFR, CMP, VIDH, CBC, LIPID #### [address] [address] #### PTH #### [address] [address] CO2 [Moles/Vol] 33 mmol/L High 23-31 [facility] ([place] Comment on above: Performed By: #### A DIFF, ANEU, GFR, CMP, VIDH, CBC, LIPID #### [place] [address] #### PTH #### [address] [address] Creatinine [Mass/Vol] 0.97 mg/dL Normal 0.55-1.02 [facility] ([place]) Comment on above: Performed By: #### A DIFF, ANEU, GFR, CMP, VIDH, CBC, LIPID #### [place] [address] #### PTH #### [place] [address] Electrolyte Balance 7.0 mEq/L Normal 4.0-15.0 [facility] ([place]) Comment on above: Performed By: #### A DIFF, ANEU, GFR, CMP, VIDH, CBC, LIPID #### [address] [address] #### PTH #### [place] [address] Globulin 4.6 G/dL Normal [facility] ([place]) Comment on above: Performed By: #### A DIFF, ANEU, GFR, CMP, VIDH, CBC, LIPID #### [address] [address] #### PTH #### [place] [address] Glucose [Mass/Vol] 98 mg/dL Normal 83-110 [facility] ([place]) Comment on above: Performed By: #### A DIFF, ANEU, GFR, CMP, VIDH, CBC, LIPID #### [place] [address] #### PTH #### [address] [address] Potassium [Moles/Vol] 4.1 mmol/L Normal 3.5-5.1 [facility] ([place] Comment on above: Performed By: #### A DIFF, ANEU, GFR, CMP, VIDH, CBC, LIPID #### [place] [address] #### PTH #### [address] [address] Sodium [Moles/Vol] 141 mmol/L Normal 136-145 [facility] ([place]) Comment on above: Performed By: #### A DIFF, ANEU, GFR, CMP, VIDH, CBC, LIPID #### [place] [address] #### PTH #### [place] [address] Total Protein 7.9 G/dL Normal 6.4-8.2 [facility] ([place]) Comment on above: Performed By: #### A DIFF, ANEU, GFR, CMP, VIDH, CBC, LIPID #### [place] [address] #### PTH #### [address] [address] Urea nitrogen [Mass/Vol] 16 mg/dL Normal 7-18 [facility] ([place] Comment on above: Performed By: #### A DIFF, ANEU, GFR, CMP, VIDH, CBC, LIPID #### [place] [address] #### PTH #### [address] [address] LABORATORYOrdered By: SYSTEM SYSTEM on 10-28-2023 25-hydroxyvitamin D3 [Mass/Vol] 45.5 ng/mL Invalid Interpretation Code AO ADM SS Comment on above: Interpretive Data: I nterpretive Values Based on Total 25(OH) Vitamin D: Deficient <20 ng/mL Insufficient 20 - <30 ng/mL Sufficient 30-100 ng/mL Albumin BCP dye [Mass/Vol] 3.3 G/dL Low 3.4 - 4.8 G/dL AO ADM SS Albumin/Globulin [Mass ratio] 0.7 {ratio} Low 1.1 - 2.5 ratio AO ADM SS ALP [Catalytic activity/Vol] 112 U/L Normal 40 - 135 U/L AO ADM SS ALT With P-5'-P [Catalytic activity/Vol] 26 U/L Normal 14 - 59 U/L AO ADM SS AST With P-5'-P [Catalytic activity/Vol] 24 U/L Normal 10 - 40 U/L AO ADM SS Basophil, Absolute 0.0 103/mcL Normal 0.0 - 0.2 10^3/mcL AO Workflow SS Basophils/100 WBC (Bld) 0.3 % Normal 0.0 - 2.5 % AO Workflow SS Bilirubin [Mass/Vol] 0.6 mg/dL Normal 0.2 - 1 .0 mg/dL AO ADM SS Comment on above: Interpretive Data: U se of this assay is not recommended for patients undergoing treatment with eltrombopag due to the potential for falsely elevated results. Calcium [Mass/Vol] 9.9 mg/dL Normal 8.4 - 10. 2 mg/dL AO ADM SS Chloride [Moles/Vol] 101 mmol/L Normal 98 - 10 7 mmol/L AO ADM SS CO2 [Moles/Vol] 33 mmol/L High 23 - 31 mmol/L AO ADM SS Creatinine [Mass/Vol] 0.97 mg/dL Normal 0.55 - 1.02 mg/dL AO ADM SS Electrolyte Balance 7.0 mEq/L Normal 4.0 - 15 .0 mEq/L AO ADM SS Eosinophil, Absolute 0.2 103/mcL Normal 0.0 - 0 .4 10^3/mcL AO Workflow SS Eosinophils/100 WBC (Bld) 2.2 % Normal 0.0 - 7.0 % AO Workflow SS Erythrocyte distribution width (RBC) [Ratio] 14.6 % High 11.5 - 14.5 % AO Workflow SS GFR/1.73 sq M.predicted among blacks MDRD (S/P/Bld) [Vol rate/Area] 67 ml/min/1.73sqm Invalid Interpretation Code AO Chemistry S Comment on above: Interpretive Data: GFR Population mean for , Non- Americans Ages 20-29 = 116 mL/min/1.73 sq.m. Ages 30-39 = 107 mL/min/1.73 sq.m. Ages 40-49 = 99 mL/min/1.73 sq.m. Ages 50-59 = 93 mL/min/1.73 sq.m. Ages 60-69 = 85 mL/min/1.73 sq.m. Ages 70+ = 75 mL/min/1.73 sq.m. Chronic Kidney Disease: Less than 60 mL/min/1.73 square meters End Stage Renal Disease: Less than 15 mL/min/1.73 square meters GFR/1.73 sq M.predicted among non-blacks MDRD (S/P/Bld) [Vol rate/Area] 56 ml/min/1.73sqm Invalid Interpretation Code AO Chemistry S Comment on above: Interpretive Data: GFR Population mean for , Non- Americans Ages 20-29 = 116 mL/min/1.73 sq.m. Ages 30-39 = 107 mL/min/1.73 sq.m. Ages 40-49 = 99 mL/min/1.73 sq.m. Ages 50-59 = 93 mL/min/1.73 sq.m. Ages 60-69 = 85 mL/min/1.73 sq.m. Ages 70+ = 75 mL/min/1.73 sq.m. Chronic Kidney Disease: Less than 60 mL/min/1.73 square meters End Stage Renal Disease: Less than 15 mL/min/1.73 square meters Globulin 4.6 G/dL Invalid Interpretation Code AO ADM SS Glucose [Mass/Vol] 98 mg/dL Normal 83 - 110 mg/dL AO ADM SS Hematocrit (Bld) [Volume fraction] 42.2 % Normal 37.0 - 47.0 % AO Workflow SS Hemoglobin (Bld) [Mass/Vol] 14.3 G/dL Normal 12.0 - 16.0 G/dL AO Workflow SS Lymphocyte, Absolute 1.9 103/mcL Normal 0.8 - 3 .9 10^3/mcL AO Workflow SS Lymphocytes/100 WBC (Bld) 27.0 % Normal 10.0 - 50.0 % AO Workflow SS MCH (RBC) [Entitic mass] 29.7 pg Normal 27.0 - 31.2 pg AO Workflow SS MCHC 34.0 G/dL Normal 33.0 - 37.0 G/dL AO Workflow SS MCV (RBC) [Entitic vol] 87.5 fL Normal 80.0 - 94.0 fL AO Workflow SS Monocyte, Absolute 0.4 103/mcL Normal 0.2 - 1.0 10^3/mcL AO Workflow SS Monocytes/100 WBC (Bld) 6.1 % Normal 1.7 - 13.0 % AO Workflow SS Neutrophil, Absolute 4.6 103/mcL Normal 2.9 - 6 .2 10^3/mcL AO Workflow SS Neutrophils/100 WBC (Bld) 64.4 % Normal 37.0 - 80.0 % AO Workflow SS Parathyrin.intact [Mass/Vol] 68.8 pg/mL Normal 18.5 - 88.0 pg/mL AH ADM SS Platelet mean volume (Bld) [Entitic vol] 8.6 fL Normal 7.4 - 10.4 fL AO Workflow SS Platelets (Bld) [#/Vol] 217 103/mcL Normal 130 - 400 10^3/mcL AO Workflow SS Potassium [Moles/Vol] 4.1 mmol/L Normal 3.5 - 5.1 mmol/L AO ADM SS Protein [Mass/Vol] 7.9 G/dL Normal 6.4 - 8.2 G/dL AO ADM SS RBC (Bld) [#/Vol] 4.82 106/mcL Normal 4.20 - 5.40 10^6/mcL AO Workflow SS Sodium [Moles/Vol] 141 mmol/L Normal 136 - 145 mmol/L AO ADM SS Urea nitrogen [Mass/Vol] 16 mg/dL Normal 7 - 18 mg/dL AO ADM SS Urea nitrogen/Creatinine [Mass ratio] 16 ratio Normal 7 - 27 ratio AO ADM SS WBC (Bld) [#/Vol] 7.2 103/mcL Normal 4.6 - 10.8 10^3/mcL AO Workflow SS LABORATORYOrdered By: Ronny Del Real on 10-28-2023 Albumin DL <= 20 mg/L (U) [Mass/Vol] 264 mcg/dL Invalid Interpretation Code AO ADM SS Albumin/Creatinine DL <= 20 mg/L (U) [Mass ratio] 6 mcg/mg Normal 0 - 30 mcg/mg AO ADM SS Cholesterol [Mass/Vol] 222 mg/dL High 0 - 200 mg/dL AO ADM SS Comment on above: Interpretive Data: C holesterol Reference Interval: Less than 200 Desirable 200-239 Borderline high risk 240 and above High risk Cholesterol in HDL [Mass/Vol] 56 mg/dL Normal 40 - 60 mg/dL AO ADM SS Cholesterol in LDL [Mass/Vol] 140 mg/dL High 0 - 130 mg/dL AO ADM SS Creatinine (U) [Mass/Vol] 47.9 mg/dL Normal 28.0 - 117.0 mg/dL AO ADM SS Triglyceride [Mass/Vol] 132 mg/dL Normal 0 - 150 mg/dL AO ADM SS Comment on above: Interpretive Data: T riglyceride Reference Interval: Less than 150 Normal 150-199 Borderline high risk 200-499 High risk 500 or higher Very high risk LIPIDon 10-28-2023 Cholesterol [Mass/Vol] 222 mg/dL High 0-200 [facility] ([place]) Comment on above: Result Comment: Chol esterol Reference Interval: Less than 200 Desirable 200-239 Borderline high risk 240 and above High risk Performed By: #### A DIFF, ANEU, GFR, CMP, VIDH, CBC, LIPID #### [place] [address] #### PTH #### [address] [address] Cholesterol in HDL [Mass/Vol] 56 mg/dL Normal 40-60 [facility] ([place]) Comment on above: Performed By: #### A DIFF, ANEU, GFR, CMP, VIDH, CBC, LIPID #### [address] [address] #### PTH #### [address] [address] Cholesterol in LDL [Mass/Vol] 140 mg/dL High 0-130 [facility] ([place]) Comment on above: Performed By: #### A DIFF, ANEU, GFR, CMP, VIDH, CBC, LIPID #### [address] [address] #### PTH #### [address] [address] Triglyceride [Mass/Vol] 132 mg/dL Normal 0-150 [facility] ([place]) Comment on above: Result Comment: Trig lyceride Reference Interval: Less than 150 Normal 150-199 Borderline high risk 200-499 High risk 500 or higher Very high risk Performed By: #### A DIFF, ANEU, GFR, CMP, VIDH, CBC, LIPID #### [address] [address] #### PTH #### [address] [address] MALBRon 10-28-2023 U Creatinine 47.9 mg/dL Normal 28.0-117.0 [facility] ([place]) Comment on above: Performed By: #### A DIFF, ANEU, GFR, CMP, VIDH, CBC, LIPID #### [address] [address] #### PTH #### [place] [address] U Microalb 264 mcg/dL Normal [facility] ([place]) Comment on above: Performed By: #### A DIFF, ANEU, GFR, CMP, VIDH, CBC, LIPID #### [place] [address] #### PTH #### [place] [address] U Ratio Alb/Cre 6 mcg/mg Normal 0-30 [facility] ([place]) Comment on above: Performed By: #### A DIFF, ANEU, GFR, CMP, VIDH, CBC, LIPID #### [address] [address] #### PTH #### [place] [address] PTHon 10-28-2023 PTH, Intact 68.8 pg/mL Normal 18.5-88.0 [facility] ([place]) Comment on above: Performed By: #### A DIFF, ANEU, GFR, CMP, VIDH, CBC, LIPID #### [place] [address] #### PTH #### [place] [address] VIDHon 10-28-2023 Vit. D 25-Hydroxy 45.5 ng/mL Normal [facility] ([place]) Comment on above: Result Comment: Inte rpretive Values Based on Total 25(OH) Vitamin D: Deficient <20 ng/mL Insufficient 20 - <30 ng/mL Sufficient 30-100 ng/mL Performed By: #### A DIFF, ANEU, GFR, CMP, VIDH, CBC, LIPID #### [facility] [address] [place], [place] [address] #### PTH #### [place] [id number] [address] [place] [address] Basic Metabolic Profile (BMP )on 08-23-2023 BUN/CRE 20.6 RATIO High 08-13 [facility] Comment on above: Performed By: #### L 100.0500, L500.2500 #### [facility] [address] [place], [address] CA,Total 9.6 mg/dL Normal 8.5-10.1 [facility] Comment on above: Performed By: #### L 100.0500, L500.2500 #### [facility] [address] [place], [address] Chloride [Moles/Vol] 102 mmol/L Normal 98-107 [facility] Comment on above: Performed By: #### L 100.0500, L500.2500 #### [facility] [address] [place], [address] CO2 [Moles/Vol] 32.0 mmol/L Normal 21.0-32.0 [facility] Comment on above: Performed By: #### L 100.0500, L500.2500 #### [facility] [address] [place], [address] Creatinine [Mass/Vol] 0.92 mg/dL Normal 0.55-1.02 [facility] Comment on above: Result Comment: The validity of the calculated GFR GFRAA in patients over 70 years has not been determined. Clinical correlation is essential. Performed By: #### L 100.0500, L500.2500 #### [facility] [address] [place], [address] EST GFR - AA 76 mL/min Normal >60 [facility] Comment on above: Result Comment: Afri can [place] GFR Calc Performed By: #### L 100.0500, L500.2500 #### [facility] [address] [place], [address] GAP 3 Low 5-15 [facility] Comment on above: Performed By: #### L 100.0500, L500.2500 #### [facility] [address] [place], [address] GFR/1.73 sq M.predicted among non-blacks MDRD (S/P/Bld) [Vol rate/Area] 62 mL/min/{1.73_m2} Normal >60 [facility] Comment on above: Result Comment: Non- GFR Calc Performed By: #### L 100.0500, L500.2500 #### [facility] [address] [place], [address] Glucose [Mass/Vol] 120 mg/dL High 74-106 [facility] Comment on above: Result Comment: Fast ing Glucose result from 100 to 125 mg/dL suggests IMPAIRED HOMEOSTASIS per A.D.A. criteria. Performed By: #### L 100.0500, L500.2500 #### [facility] [address] [place], [address] Potassium [Moles/Vol] 3.7 mmol/L Normal 3.5-5.1 [facility] Comment on above: Performed By: #### L 100.0500, L500.2500 #### [facility] [address] [place], [address] Sodium [Moles/Vol] 137 mmol/L Normal 136-145 [facility] Comment on above: Performed By: #### L 100.0500, L500.2500 #### [facility] [address] [place], [address] Urea nitrogen [Mass/Vol] 19 mg/dL High 7-18 [facility] Comment on above: Performed By: #### L 100.0500, L500.2500 #### [facility] [facility] [address] [place], [address] Basophil percentageOrdered B y: Jim Cano on 08-23-2023 Chloride [Moles/Vol] 102 mmol/L 98-107 [facility] Glucose [Mass/Vol] 120 mg/dL 74-106 [facility] Comment on above: Fasting Glucose resu lt from 100 to 125 mg/dL suggests IMPAIRED HOMEOSTASIS per A.D.A. criteria. Potassium [Moles/Vol] 3.7 mmol/L 3.5-5.1 [facility] Sodium [Moles/Vol] 137 mmol/L 136-145 [facility] WBC (Bld) [#/Vol] 8.7 10*3/uL 4.4-11.0 [facility] Blood erythrocytes count (nu mber/volume)Ordered By: Jim Cano on 08-23-2023 RBC (Bld) [#/Vol] 4.94 10*6/uL 4.2-5.4 [facility] Blood hemoglobin measurement (mass/volume)Ordered By: Jim Cano on 08-23-2023 Hemoglobin (Bld) [Mass/Vol] 14.4 g/dL 12.0-15.0 [facility] Blood platelet mean volumeOr dered By: Jim Cano on 08-23-2023 Platelet mean volume (Bld) [Entitic vol] 10.1 fL 6.2-12.0 [facility] CBC-Complete Blood Cnt No Di ffon 08-23-2023 Erythrocyte distribution width (RBC) [Ratio] 14.8 % High 11.6-14.6 [facility] Comment on above: Performed By: #### L 100.0500, L500.2500 #### [facility] [address] [place], [address] Hematocrit (Bld) [Volume fraction] 45.0 % Normal 37-47 [facility] Comment on above: Performed By: #### L 100.0500, L500.2500 #### [facility] [address] [place], [address] Hemoglobin (Bld) [Mass/Vol] 14.4 g/dL Normal 12.0-15.0 [facility] Comment on above: Performed By: #### L 100.0500, L500.2500 #### [facility] [address] [place], [address] MCH (RBC) [Entitic mass] 29.1 pg Normal 27.0-32.0 [facility] Comment on above: Performed By: #### L 100.0500, L500.2500 #### [facility] [address] [place], [address] MCHC (RBC) [Mass/Vol] 32.0 g/dL Normal 32-36 [facility] Comment on above: Performed By: #### L 100.0500, L500.2500 #### [facility] [address] [place], [address] MCV (RBC) [Entitic vol] 91.1 fL Normal 81-99 [facility] Comment on above: Performed By: #### L 100.0500, L500.2500 #### [facility] [address] [place], [address] Platelet mean volume (Bld) [Entitic vol] 10.1 fL Normal 6.2-12.0 [facility] Comment on above: Performed By: #### L 100.0500, L500.2500 #### [facility] [address] [place], [address] Platelets (Bld) [#/Vol] 222 10*3/uL Normal 150-450 [facility] Comment on above: Performed By: #### L 100.0500, L500.2500 #### [facility] [address] [place], [address] RBC (Bld) [#/Vol] 4.94 10*6/uL Normal 4.2-5.4 [facility] Comment on above: Performed By: #### L 100.0500, L500.2500 #### [facility] [address] [place], [address] RDW SD 49.7 fl High 35.1-43.9 [facility] Comment on above: Performed By: #### L 100.0500, L500.2500 #### [facility] [address] [place], [address] WBC (Bld) [#/Vol] 8.7 10*3/uL Normal 4.4-11.0 [facility] Comment on above: Performed By: #### L 100.0500, L500.2500 #### [facility] [address] [place], [address] Determination of erythrocyte mean corpuscular volume (MCV)Ordered By: Jim Cano on 08-23-2023 MCV (RBC) [Entitic vol] 91.1 fL 81-99 [facility] Hematocrit Auto (Bld) [Volum e fraction]Ordered By: Jim Cano on 08-23-2023 Hematocrit (Bld) [Volume fraction] 45.0 % 37-47 [facility] - Chemistry and C hemistry - challengeOrdered By: Jim Cano on 08-23-2023 CO2 [Moles/Vol] 32.0 mmol/L 21.0-32.0 [facility] Urea nitrogen/Creatinine [Mass ratio] 20.6 mg/mg - [facility] Laboratory - Hematology and Cell countsOrdered By: Jim Cano on 08-23-2023 Erythrocyte distribution width (RBC) [Entitic vol] 49.7 fL 35.1-43.9 [facility] Erythrocyte distribution width (RBC) [Ratio] 14.8 % 11.6-14.6 [facility] MCH (RBC) [Entitic mass] 29.1 pg 27.0-32.0 [facility] MCHC Auto (RBC) [Mass/Vol]Or dered By: Jim Cano on 08-23-2023 MCHC (RBC) [Mass/Vol] 32.0 g/dL 32-36 [facility] No Panel InformationOrdered By: Jim Cano on 08-23-2023 Estimated GFR (MDRD) Amer 76 mL/min >60 [facility] Comment on above: GFR Calc Estimated GFR (MDRD) Non-Af Amer 62 mL/min >60 [facility] Comment on above: Non- GFR Calc Platelets bldOrdered By: Ramirez Cano on 08-23-2023 Platelets (Bld) [#/Vol] 222 10*3/uL 150-450 [facility] Serum or plasma calcium jose miguel urement (mass/volume)Ordered By: Jim Cano on 08-23-2023 Calcium [Mass/Vol] 9.6 mg/dL 8.5-10.1 [facility] Serum or plasma creatinine m easurement (mass/volume)Ordered By: Jim Cano on 08-23-2023 Creatinine [Mass/Vol] 0.92 mg/dL 0.55-1.02 [facility] Comment on above: The validity of the calculated GFR & GFRAA in patients over 70 years has not been determined. Clinical correlation is essential. Serum or plasma urea nitroge n measurement (mass/volume)Ordered By: Jim Cano on 08-23-2023 Urea nitrogen [Mass/Vol] 19 mg/dL 7-18 [facility] Thin prep Papanicolaou smear with manual screeningOrdered By: Jim Cano on 08-23-2023 Thin prep Papanicolaou smear with manual screening 3 5-15 [facility] LABORATORYOrdered By: SYSTEM SYSTEM on 04-29-2023 25-hydroxyvitamin D3 [Mass/Vol] 39.9 ng/mL Invalid Interpretation Code AO ADM SS Albumin BCP dye [Mass/Vol] 3.3 G/dL Invalid Interpretation Code 3.4 - 4.8 G/dL AO ADM SS Albumin/Globulin [Mass ratio] 0.8 {ratio} Invalid Interpretation Code 1.1 - 2.5 ratio AO ADM SS ALP [Catalytic activity/Vol] 105 U/L Invalid Interpretation Code 40 - 135 U/L AO ADM SS ALT With P-5'-P [Catalytic activity/Vol] 26 U/L Invalid Interpretation Code 14 - 59 U/L AO ADM SS AST With P-5'-P [Catalytic activity/Vol] 25 U/L Invalid Interpretation Code 10 - 40 U/L AO ADM SS Basophil, Absolute 0.0 103/mcL Invalid Interpretation Code 0.0 - 0.2 10^3/mcL AO Workflow SS Basophils/100 WBC (Bld) 0.7 % Invalid Interpretation Code 0.0 - 2.5 % AO Workflow SS Bilirubin [Mass/Vol] 0.7 mg/dL Invalid Interpretation Code 0.2 - 1.0 mg/dL AO ADM SS Calcium [Mass/Vol] 9.4 mg/dL Invalid Interpretation Code 8.4 - 10.2 mg/dL AO ADM SS Chloride [Moles/Vol] 102 mmol/L Invalid Interpretation Code 98 - 107 mmol/L AO ADM SS CO2 [Moles/Vol] 31 mmol/L Invalid Interpretation Code 23 - 31 mmol/L AO ADM SS Creatinine [Mass/Vol] 1.05 mg/dL Invalid Interpretation Code 0.55 - 1.02 mg/dL AO ADM SS Electrolyte Balance 8.0 mEq/L Invalid Interpretation Code 4.0 - 15.0 mEq/L AO ADM SS Eosinophil, Absolute 0.2 103/mcL Invalid Interpretation Code 0.0 - 0.4 10^3/mcL AO Workflow SS Eosinophils/100 WBC (Bld) 3.1 % Invalid Interpretation Code 0.0 - 7.0 % AO Workflow SS Erythrocyte distribution width (RBC) [Ratio] 15.5 % Invalid Interpretation Code 11.5 - 14.5 % AO Workflow SS GFR/1.73 sq M.predicted among blacks MDRD (S/P/Bld) [Vol rate/Area] 61 ml/min/1.73sqm Invalid Interpretation Code AO Chemistry S GFR/1.73 sq M.predicted among non-blacks MDRD (S/P/Bld) [Vol rate/Area] 51 ml/min/1.73sqm Invalid Interpretation Code AO Chemistry S Globulin 4.0 G/dL Invalid Interpretation Code AO ADM SS Glucose [Mass/Vol] 94 mg/dL Invalid Interpretation Code 83 - 110 mg/dL AO ADM SS Hematocrit (Bld) [Volume fraction] 39.9 % Invalid Interpretation Code 37.0 - 47.0 % AO Workflow SS Hemoglobin (Bld) [Mass/Vol] 13.3 G/dL Invalid Interpretation Code 12.0 - 16.0 G/dL AO Workflow SS Lymphocyte, Absolute 2.5 103/mcL Invalid Interpretation Code 0.8 - 3.9 10^3/mcL AO Workflow SS Lymphocytes/100 WBC (Bld) 34.0 % Invalid Interpretation Code 10.0 - 50.0 % AO Workflow SS MCH (RBC) [Entitic mass] 28.7 pg Invalid Interpretation Code 27.0 - 31.2 pg AO Workflow SS MCHC 33.4 G/dL Invalid Interpretation Code 33.0 - 37.0 G/dL AO Workflow SS MCV (RBC) [Entitic vol] 85.9 fL Invalid Interpretation Code 80.0 - 94.0 fL AO Workflow SS Monocyte, Absolute 0.5 103/mcL Invalid Interpretation Code 0.2 - 1.0 10^3/mcL AO Workflow SS Monocytes/100 WBC (Bld) 7.2 % Invalid Interpretation Code 1.7 - 13.0 % AO Workflow SS Neutrophil, Absolute 4.0 103/mcL Invalid Interpretation Code 2.9 - 6.2 10^3/mcL AO Workflow SS Neutrophils/100 WBC (Bld) 55.0 % Invalid Interpretation Code 37.0 - 80.0 % AO Workflow SS Platelet mean volume (Bld) [Entitic vol] 8.6 fL Invalid Interpretation Code 7.4 - 10.4 fL AO Workflow SS Platelets (Bld) [#/Vol] 208 103/mcL Invalid Interpretation Code 130 - 400 10^3/mcL AO Workflow SS Potassium [Moles/Vol] 3.9 mmol/L Invalid Interpretation Code 3.5 - 5.1 mmol/L AO ADM SS Protein [Mass/Vol] 7.3 G/dL Invalid Interpretation Code 6.4 - 8.2 G/dL AO ADM SS RBC (Bld) [#/Vol] 4.65 106/mcL Invalid Interpretation Code 4.20 - 5.40 10^6/mcL AO Workflow SS Sodium [Moles/Vol] 141 mmol/L Invalid Interpretation Code 136 - 145 mmol/L AO ADM SS Urea nitrogen [Mass/Vol] 14 mg/dL Invalid Interpretation Code 7 - 18 mg/dL AO ADM SS Urea nitrogen/Creatinine [Mass ratio] 13 ratio Invalid Interpretation Code 7 - 27 ratio AO ADM SS WBC (Bld) [#/Vol] 7.3 103/mcL Invalid Interpretation Code 4.6 - 10.8 10^3/mcL AO Workflow SS LABORATORYOrdered By: Kendal Sorto on 04-29-2023 Cholesterol [Mass/Vol] 176 mg/dL Invalid Interpretation Code 0 - 200 mg/dL AO ADM SS Cholesterol in HDL [Mass/Vol] 49 mg/dL Invalid Interpretation Code 40 - 60 mg/dL AO ADM SS Cholesterol in LDL [Mass/Vol] 101 mg/dL Invalid Interpretation Code 0 - 130 mg/dL AO ADM SS Triglyceride [Mass/Vol] 129 mg/dL Invalid Interpretation Code 0 - 150 mg/dL AO ADM SS LABORATORYOrdered By: Flako Soliman on 09-24-2022 Albumin BCP dye [Mass/Vol] 3.4 G/dL Invalid Interpretation Code 3.4 - 4.8 G/dL AO ADM SS Albumin/Globulin [Mass ratio] 0.8 {ratio} Invalid Interpretation Code 1.1 - 2.5 ratio AO ADM SS ALP [Catalytic activity/Vol] 110 U/L Invalid Interpretation Code 40 - 135 U/L AO ADM SS ALT With P-5'-P [Catalytic activity/Vol] 31 U/L Invalid Interpretation Code 14 - 59 U/L AO ADM SS AST With P-5'-P [Catalytic activity/Vol] 29 U/L Invalid Interpretation Code 10 - 40 U/L AO ADM SS Basophil, Absolute 0.0 103/mcL Invalid Interpretation Code 0.0 - 0.2 10^3/mcL AO Workflow SS Basophils/100 WBC (Bld) 0.4 % Invalid Interpretation Code 0.0 - 2.5 % AO Workflow SS Bilirubin [Mass/Vol] 0.6 mg/dL Invalid Interpretation Code 0.2 - 1.0 mg/dL AO ADM SS Calcium [Mass/Vol] 9.5 mg/dL Invalid Interpretation Code 8.4 - 10.2 mg/dL AO ADM SS Chloride [Moles/Vol] 102 mmol/L Invalid Interpretation Code 98 - 107 mmol/L AO ADM SS Cholesterol [Mass/Vol] 200 mg/dL Invalid Interpretation Code 0 - 200 mg/dL AO ADM SS Cholesterol in HDL [Mass/Vol] 54 mg/dL Invalid Interpretation Code 40 - 60 mg/dL AO ADM SS Cholesterol in LDL [Mass/Vol] 121 mg/dL Invalid Interpretation Code 0 - 130 mg/dL AO ADM SS CO2 [Moles/Vol] 33 mmol/L Invalid Interpretation Code 23 - 31 mmol/L AO ADM SS Creatinine [Mass/Vol] 0.91 mg/dL Invalid Interpretation Code 0.55 - 1.02 mg/dL AO ADM SS Electrolyte Balance 6.0 mEq/L Invalid Interpretation Code 4.0 - 15.0 mEq/L AO ADM SS Eosinophil, Absolute 0.1 103/mcL Invalid Interpretation Code 0.0 - 0.4 10^3/mcL AO Workflow SS Eosinophils/100 WBC (Bld) 2.2 % Invalid Interpretation Code 0.0 - 7.0 % AO Workflow SS Erythrocyte distribution width (RBC) [Ratio] 15.3 % Invalid Interpretation Code 11.5 - 14.5 % AO Workflow SS Globulin 4.1 G/dL Invalid Interpretation Code AO ADM SS Glucose [Mass/Vol] 85 mg/dL Invalid Interpretation Code 83 - 110 mg/dL AO ADM SS Hematocrit (Bld) [Volume fraction] 41.2 % Invalid Interpretation Code 37.0 - 47.0 % AO Workflow SS Hemoglobin (Bld) [Mass/Vol] 13.7 G/dL Invalid Interpretation Code 12.0 - 16.0 G/dL AO Workflow SS Lymphocyte, Absolute 1.8 103/mcL Invalid Interpretation Code 0.8 - 3.9 10^3/mcL AO Workflow SS Lymphocytes/100 WBC (Bld) 27.7 % Invalid Interpretation Code 10.0 - 50.0 % AO Workflow SS MCH (RBC) [Entitic mass] 29.2 pg Invalid Interpretation Code 27.0 - 31.2 pg AO Workflow SS MCHC 33.3 G/dL Invalid Interpretation Code 33.0 - 37.0 G/dL AO Workflow SS MCV (RBC) [Entitic vol] 87.7 fL Invalid Interpretation Code 80.0 - 94.0 fL AO Workflow SS Monocyte, Absolute 0.5 103/mcL Invalid Interpretation Code 0.2 - 1.0 10^3/mcL AO Workflow SS Monocytes/100 WBC (Bld) 7.0 % Invalid Interpretation Code 1.7 - 13.0 % AO Workflow SS Neutrophil, Absolute 4.2 103/mcL Invalid Interpretation Code 2.9 - 6.2 10^3/mcL AO Workflow SS Neutrophils/100 WBC (Bld) 62.7 % Invalid Interpretation Code 37.0 - 80.0 % AO Workflow SS Platelet mean volume (Bld) [Entitic vol] 8.6 fL Invalid Interpretation Code 7.4 - 10.4 fL AO Workflow SS Platelets (Bld) [#/Vol] 216 103/mcL Invalid Interpretation Code 130 - 400 10^3/mcL AO Workflow SS Potassium [Moles/Vol] 4.1 mmol/L Invalid Interpretation Code 3.5 - 5.1 mmol/L AO ADM SS Protein [Mass/Vol] 7.5 G/dL Invalid Interpretation Code 6.4 - 8.2 G/dL AO ADM SS RBC (Bld) [#/Vol] 4.70 106/mcL Invalid Interpretation Code 4.20 - 5.40 10^6/mcL AO Workflow SS Sodium [Moles/Vol] 141 mmol/L Invalid Interpretation Code 136 - 145 mmol/L AO ADM SS Triglyceride [Mass/Vol] 127 mg/dL Invalid Interpretation Code 0 - 150 mg/dL AO ADM SS Urea nitrogen [Mass/Vol] 12 mg/dL Invalid Interpretation Code 7 - 18 mg/dL AO ADM SS Urea nitrogen/Creatinine [Mass ratio] 13 ratio Invalid Interpretation Code 7 - 27 ratio AO ADM SS Vit. D 25-Hydroxy 39.9 ng/mL Invalid Interpretation Code AO ADM SS WBC (Bld) [#/Vol] 6.6 103/mcL Invalid Interpretation Code 4.6 - 10.8 10^3/mcL AO Workflow SS LABORATORYOrdered By: SYSTEM SYSTEM on 09-24-2022 GFR 73 ml/min/1.73sqm Invalid Interpretation Code AO Chemistry S GFR Non- 60 ml/min/1.73sqm Invalid Interpretation Code AO Chemistry S CNOVon 04-03-2022 CNOV Office Visit (ALTHEA ) JAD PHILLIPS ([id number]) 1945 F Date Time Provider Department 04/03/22 9:00 AM RUSSELL ROWE During your visit today, we recorded the following information about you: Temperature Pulse Blood pressure Weight 97.3 degrees 60/minute 138/60 105.8 kg Height 1.6 m Rosa Hodge RN 04/03/2022 9:20 AM Signed REVIEW OF SYSTEMS: General: The patient denies fatigue, denies weight loss, denies weight gain, denies feeling hot, and denies feelings of cold. Eyes: The patient denies glaucoma, denies eye injury/surgery, wears glasses or contacts. Ear/Nose/Throat: The patient NOTES allergies, denies hayfever, denies ear infections, and denies bloody noses. Cardiovascular: The patient denies chest pain, denies heart disease, NOTES high blood pressure,denies cardiac stent, denies prior heart attack, denies irregular heart beat, NOTES high cholesterol, denies poor circulation, denies heart failure, other cardiac issues, NOTES claudication, denies cold feet, denies peripheral arterial stent. Respiratory: The patient denies tuberculosis, denies pneumonia, denies frequent cough, denies pulmonary embolism, denies shortness of breath, and denies coughing up blood. Gastrointestinal: The patient denies difficulty swallowing, NOTES acid reflux, denies ulcers, denies vomiting, denies jaundice/hepatitis, NOTES gallbladder problems, denies black or tarry stools, denies hemorrhoids, denies bleeding from rectum, denies diverticulitis, denies constipation, denies diarrhea, denies loss of stool control, and denies hernias. Kidney/Bladder: The patient denies kidney stones, denies urine infections, and denies bloody urine. Skin: The patient denies a history of skin cancer, denies bleeding/changing moles, and denies a history of skin rash. Neurologic: The patient denies a history of epilepsy/convulsions, denies headaches, denies head/spinal injuries, and denies stroke/TIA. Psychiatric: The patient denies psychiatric medications, denies depression, and denies voices, denies substance abuse. Endocrine: The patient denies thyroid disorders, denies diabetes, and denies hormonal problems. Hematologic: The patient NOTES a history of bruising, denies bleeding, and denies anemia, denies blood clots. Infections: The patient denies a history of measles and mumps, denies rheumatic fever, and denies sexually transmitted diseases. Musculoskeletal: The patient NOTES back pain/injury, denies back problems, denies sciatica, denies knee/foot trouble, denies arthritis, or denies gout. When was patient's last Mammogram screening? Unknown Last Colonoscopy: 2005 Rosa Hodge RN Russell Rowe III, MD 04/10/2022 11:13 AM Signed HISTORY AND PHYSICAL Jad Phillips 1945 REFERRING PHYSICIAN: Yaniv Wiseman, [employer]IDENCE H[employer] DIRECTOR CHIEF COMPLAINT: Consult (lipoma right back) HPI: The patient is a 76 year old female with a complaint of subcutaneous lesion on her back. Patient noticed this after she got COVID in July 2021. Not sure if it was there longer than that. She notices it more when she leans back.. The patient is being seen by me today at the request of Dr. Wiseman for my opinion and advice regarding Lesion of subcutaneous tissue (primary encounter diagnosis). PAST MEDICAL HISTORY Diagnosis Date - Acute gastritis without mention of hemorrhage - Balance problem post-COVID - Benign neoplasm of colon - Bradycardia - CKD (chronic kidney disease) stage 3, GFR 30-59 ml/min (HCC) - COVID-19 07/2021 - Dizzy - Esophagitis, unspecified - Essential hypertension - GERD (gastroesophageal reflux disease) - Increased BMI - Lipoma of back - Mixed hyperlipidemia - Murmur, heart - MVP (mitral valve prolapse) - Non-rheumatic mitral regurgitation - Other and unspecified mitral valve diseases - Peripheral vascular disease (HCC) - Varicose veins of legs - Vitamin D deficiency PAST SURGICAL HISTORY Procedure Laterality Date - CHOLECYSTECTOMY - COLONOSCOPY FLX DX W/COLLJ SPEC WHEN PFRMD 02/17/2006 Colonoscopy - ESOPHAGOGASTRODUODENOSCOPY TRANSORAL DIAGNOSTIC 02/17/2006 EGD - NEUROPLASTY AND/TRANSPOS MEDIAN NRV CARPAL TUNNE ravindra Carpal tunnel decomp - PAST SURGICAL HISTORY OF 04/05/2019 back surgery - PAST SURGICAL HISTORY OF bone spur (unspecified location) - TOTAL ABDOMINAL HYSTERECT W/WO RMVL TUBE OVARY - TOTAL KNEE REPLACEMENT unspecified location Current Outpatient Medications Medication Sig - amLODIPine (NORVASC) 5 mg tablet Take by mouth once daily. - atenolol (TENORMIN) 100 mg tablet Take 100 mg by mouth once daily. - lovastatin 40 mg tablet Take 40 mg by mouth daily at bedtime. - acetaminophen 325 mg cap Take 325 mg by mouth every 4 hours as needed. - cholecalciferol, vitamin D3, (VITAMIN D3 ORAL) Take 2,000 Int'l Units by mouth once daily. - R (more content not included)... Normal [facility] LABORATORYOrdered By: Flako Soliman on 03-12-2022 Albumin BCP dye [Mass/Vol] 3.5 G/dL Invalid Interpretation Code 3.4 - 4.8 G/dL AO ADM SS Albumin/Globulin [Mass ratio] 0.8 {ratio} Invalid Interpretation Code 1.1 - 2.5 ratio AO ADM SS ALP [Catalytic activity/Vol] 95 U/L Invalid Interpretation Code 40 - 135 U/L AO ADM SS ALT With P-5'-P [Catalytic activity/Vol] 33 U/L Invalid Interpretation Code 14 - 59 U/L AO ADM SS AST With P-5'-P [Catalytic activity/Vol] 31 U/L Invalid Interpretation Code 10 - 40 U/L AO ADM SS Bilirubin [Mass/Vol] 0.6 mg/dL Invalid Interpretation Code 0.2 - 1.0 mg/dL AO ADM SS Calcium [Mass/Vol] 9.5 mg/dL Invalid Interpretation Code 8.4 - 10.2 mg/dL AO ADM SS Chloride [Moles/Vol] 103 mmol/L Invalid Interpretation Code 98 - 107 mmol/L AO ADM SS Cholesterol [Mass/Vol] 187 mg/dL Invalid Interpretation Code 0 - 200 mg/dL AO ADM SS Cholesterol in HDL [Mass/Vol] 54 mg/dL Invalid Interpretation Code 40 - 60 mg/dL AO ADM SS Cholesterol in LDL [Mass/Vol] 104 mg/dL Invalid Interpretation Code 0 - 130 mg/dL AO ADM SS CO2 [Moles/Vol] 32 mmol/L Invalid Interpretation Code 23 - 31 mmol/L AO ADM SS Creatinine [Mass/Vol] 0.86 mg/dL Invalid Interpretation Code 0.55 - 1.02 mg/dL AO ADM SS Electrolyte Balance 6.0 mEq/L Invalid Interpretation Code 4.0 - 15.0 mEq/L AO ADM SS Globulin 4.4 G/dL Invalid Interpretation Code AO ADM SS Glucose [Mass/Vol] 95 mg/dL Invalid Interpretation Code 83 - 110 mg/dL AO ADM SS Potassium [Moles/Vol] 4.5 mmol/L Invalid Interpretation Code 3.5 - 5.1 mmol/L AO ADM SS Protein [Mass/Vol] 7.9 G/dL Invalid Interpretation Code 6.4 - 8.2 G/dL AO ADM SS Sodium [Moles/Vol] 141 mmol/L Invalid Interpretation Code 136 - 145 mmol/L AO ADM SS Triglyceride [Mass/Vol] 144 mg/dL Invalid Interpretation Code 0 - 150 mg/dL AO ADM SS Urea nitrogen [Mass/Vol] 15 mg/dL Invalid Interpretation Code 7 - 18 mg/dL AO ADM SS Urea nitrogen/Creatinine [Mass ratio] 17 ratio Invalid Interpretation Code 7 - 27 ratio AO ADM SS Vit. D 25-Hydroxy 41.4 ng/mL Invalid Interpretation Code AO ADM SS LABORATORYOrdered By: Flako Mclain on 03-12-2022 Basophil, Absolute 0.00 103/mcL Invalid Interpretation Code 0.00 - 0.19 10^3/mcL AO Auto Heme SS Basophils/100 WBC (Bld) 0.5 % Invalid Interpretation Code 0.0 - 2.5 % AO Auto Heme SS Eosinophil, Absolute 0.20 103/mcL Invalid Interpretation Code 0.00 - 0.40 10^3/mcL AO Auto Heme SS Eosinophils/100 WBC (Bld) 3.2 % Invalid Interpretation Code 0.0 - 7.0 % AO Auto Heme SS Erythrocyte distribution width (RBC) [Ratio] 16.0 % Invalid Interpretation Code 11.5 - 14.5 % AO Auto Heme SS Hematocrit (Bld) [Volume fraction] 40.4 % Invalid Interpretation Code 37.0 - 47.0 % AO Auto Heme SS Hemoglobin (Bld) [Mass/Vol] 13.4 G/dL Invalid Interpretation Code 12.0 - 16.0 G/dL AO Auto Heme SS Lymphocyte, Absolute 1.70 103/mcL Invalid Interpretation Code 0.77 - 3.85 10^3/mcL AO Auto Heme SS Lymphocytes/100 WBC (Bld) 28.4 % Invalid Interpretation Code 10.0 - 50.0 % AO Auto Heme SS MCH (RBC) [Entitic mass] 28.8 pg Invalid Interpretation Code 27.0 - 31.2 pg AO Auto Heme SS MCHC (RBC) [Mass/Vol] 33.1 G/dL Invalid Interpretation Code 33.0 - 37.0 G/dL AO Auto Heme SS MCV (RBC) [Entitic vol] 86.8 fL Invalid Interpretation Code 80.0 - 94.0 fL AO Auto Heme SS Monocyte, Absolute 0.40 103/mcL Invalid Interpretation Code 0.15 - 1.00 10^3/mcL AO Auto Heme SS Monocytes/100 WBC (Bld) 7.6 % Invalid Interpretation Code 1.7 - 13.0 % AO Auto Heme SS Neutrophil, Absolute 3.60 103/mcL Invalid Interpretation Code 2.85 - 6.16 10^3/mcL AO Auto Heme SS Neutrophils/100 WBC (Bld) 60.3 % Invalid Interpretation Code 37.0 - 80.0 % AO Auto Heme SS Platelet mean volume (Bld) [Entitic vol] 8.9 fL Invalid Interpretation Code 7.4 - 10.4 fL AO Auto Heme SS Platelets (Bld) [#/Vol] 208 103/mcL Invalid Interpretation Code 130 - 400 10^3/mcL AO Auto Heme SS RBC (Bld) [#/Vol] 4.65 106/mcL Invalid Interpretation Code 4.20 - 5.40 10^6/mcL AO Auto Heme SS WBC (Bld) [#/Vol] 5.90 103/mcL Invalid Interpretation Code 4.60 - 10.80 10^3/mcL AO Auto Heme SS LABORATORYOrdered By: SYSTEM SYSTEM on 03-12-2022 GFR 78 ml/min/1.73sqm Invalid Interpretation Code AO Chemistry S GFR Non- 64 ml/min/1.73sqm Invalid Interpretation Code AO Chemistry S Vital Signs Date Time Vital Sign Value Performing Clinician Jaycee tadeo 04-03-2022 08:50-0400 Body height 160 cm Russell Rowe MD Work Phone: [facility] 04-03-2022 08:50-0400 Body temperature 97.3 [degF] Russell Rowe MD Work Phone: [facility] 04-03-2022 08:50-0400 Body weight 105.78 kg Russell Rowe MD Work Phone: [facility] 04-03-2022 08:50-0400 Diastolic blood pressure 60 mm[Hg] Russell Rowe MD Work Phone: [facility] 04-03-2022 08:50-0400 Heart rate 60 /min Russell Rowe MD Work Phone: [facility] 04-03-2022 08:50-0400 SaO2% (BldA) [Mass fraction] 95 % Russell Rowe MD Work Phone: [facility] 04-03-2022 08:50-0400 Systolic blood pressure 138 mm[Hg] Russell Rowe MD Work Phone: [facility] Encounters Encounter Date Encounter Type Care Provider Facility Start: 05-22-2025 End: 05-26-2025 ambulatory YANIV WISEMAN COMMUNICATIONS WRITER - [employer] DIRECTOR Facility:[facility] Start: 05-22-2025 End: 05-26-2025 Outreach Lab YANIV WISEMAN COMMUNICATIONS WRITER - RESIDENCE HALL DIRECTOR [facility] Start: 01-22-2025 End: 01-22-2025 ambulatory SAYEDA ERNIE Facility:[facility] Start: 01-01-2025 End: 01-01-2025 ambulatory SAYEDA ERNIE Facility:[facility] Start: 11-23-2024 End: 11-27-2024 ambulatory YANIV KILPATRICKPKINS COMMUNICATIONS WRITER - RESIDENCE HALL DIRECTOR Facility:[facility] Start: 11-23-2024 End: 11-27-2024 Outreach Lab YANIV WISEMAN COMMUNICATIONS WRITER - RESIDENCE HALL DIRECTOR [facility] Start: 05-11-2024 End: 05-15-2024 ambulatory YANIV KILPATRICKPKINS COMMUNICATIONS WRITER - RESIDENCE HALL DIRECTOR Facility:[facility] Start: 05-11-2024 End: 05-15-2024 Outreach Lab YANIV WISEMAN COMMUNICATIONS WRITER - RESIDENCE HALL DIRECTOR [facility] Start: 10-28-2023 End: 11-01-2023 ambulatory YANIV WISEMAN COMMUNICATIONS WRITER - RESIDENCE HALL DIRECTOR Facility:[facility] Start: 10-28-2023 End: 11-01-2023 Outreach Lab YANIV WISEMAN COMMUNICATIONS WRITER - RESIDENCE HALL DIRECTOR [facility] Start: 08-23-2023 ambulatory Yaniv Wiseman NP Facility:[facility] Start: 08-23-2023 End: 08-23-2023 ambulatory [facility] Work Phone: Start: 08-23-2023 End: 08-23-2023 Patient encounter procedure [facility]-Pulmonary Services/Neurology Work Phone: Start: 04-29-2023 End: 05-03-2023 Outreach Lab YANIV WISEMAN COMMUNICATIONS WRITER - RESIDENCE HALL DIRECTOR [facility] Start: 12-08-2022 End: 12-08-2022 Patient encounter procedure MARCELLA JEFFREY COMMUNICATIONS WRITER-RESIDENCE HALL DIRECTOR [facility] Start: 09-24-2022 End: 09-28-2022 Outreach Lab YANIV WISEMAN COMMUNICATIONS WRITER - RESIDENCE HALL DIRECTOR [facility] Start: 07-13-2022 End: 07-13-2022 ambulatory [facility] Work Phone: Start: 07-13-2022 End: 07-13-2022 Discharged Recurring [facility]-Physical Therapy Start: 04-03-2022 End: 04-03-2022 Patient encounter procedure Russell Rowe MD Work Phone: General Surgery Comment on above: Lesion of subcutaneo us tissue (Primary Dx) Start: 03-12-2022 End: 03-16-2022 Outreach Lab YANIV WISEMAN COMMUNICATIONS WRITER - RESIDENCE HALL DIRECTOR [facility] Procedures Date Procedure Procedure Detail Performing Clinician Start: 04-05-2019 Back structure, excluding neck (body structure) YANIV WISEMAN COMMUNICATIONS WRITER - RESIDENCE HALL DIRECTOR Arthroplasty of knee YANIV WISEMAN COMMUNICATIONS WRITER - RESIDENCE HALL DIRECTOR Cholecystectomy YANIV GOLDBERG COMMUNICATIONS WRITER - RESIDENCE HALL DIRECTOR Decompression of med guerline nerve YANIV WISEMAN COMMUNICATIONS WRITER - RESIDENCE HALL DIRECTOR History of cholecystectomy History of cholecystectomy YANIV WISEMAN COMMUNICATIONS WRITER - RESIDENCE HALL DIRECTOR Osteophyte of bone (disorder) YANIV WISEMAN COMMUNICATIONS WRITER - RESIDENCE HALL DIRECTOR Plan of Treatment Date Care Activity Detail Author Start: 06-25-2022 Influenza vaccination INFLUENZA (Sea son Ended) [facility] Start: 10-25-2021 ADVANCE DIRECTIVE DISCUSSION ADVANCE DIRECTIVE DISCUSSION [facility] Start: 2010 BONE DENSITY BONE DENSITY [facility] Start: 2010 PNEUMOCOCCAL: 65+ (1 - PCV) PNEUMOCOCCAL: 65+ (1 - PCV) [facility] Start: 1995 SHINGRIX VACCINE (1 of 2) MORELOS GRIX VACCINE (1 of 2) [facility] Start: 1990 DIABETES SCREEN DIABETES SCREEN [facility] Start: 1964 Urine microalbumin profile DTAP,TDAP ,TD (1 - Tdap) [facility] Start: 1963 HEPATITIS C SCREENING HEPATITIS C AZ REENING [facility] Start: 1957 Adult depression [facility] DEPRESSION SCREENING [facility] Start: 1950 COVID-19 VACCINE (#1) COVID-19 VACCI NE (#1) [facility] Immunizations Immunization Date Immunization Notes Care Provider Renaldo leiva 08-30-2017 Influenza virus vaccine [facility] 07-25-2016 Influenza virus vaccine [facility] Payers Date Payer Category Payer Private Health Insurance [id number] 2024 Unknown [id number] 2023 Unknown [id number] 2023 Self-pay [id number] 2023 Unknown [id number] 1945 Unknown [id number] [id number] 1945 Unknown [id number] [id number] [id number] 1945 Unknown [id number] 1945 Unknown [id number] [id number] 1945 Unknown [id number] 2.16.8 [id number] 1945 Unknown [id number] [id number] Unknown [id number] [id number] Social History Date Type Detail Facility Start: 07-11-2019 End: 01-01-2025 Tobacco smoking status Never smoked tobacco (finding) [facility] Comment on above: No smoke exposure Start: 1945 Sex Assigned At Female A [facility] Start: 04-03-2022 Alcohol intake Current non-dr sinker winder of alcohol (finding) [facility] Start: 1945 Sex Assigned At Not on file C [facility] Start: 03-24-2022 End: 04-03-2022 Exposure to SARS-CoV-2 (event) Not sure [facility] Start: 08-08-2021 Tobacco smoking stat us LAIS Unknown if ever smoked [facility] Start: 01-27-2016 None [facility] Start: 01-27-2016 With Family [facility] Sexual Orientation [facility] Start: 11-09-2019 Sex Female (finding) [facility] Clinical Notes 04-03-2022 to 04-10-2022 Russell Rowe MD - 04/10/2022 11:08 AM Cesar Hodge RN - 04/03/2022 9:16 AM EDT Note Date & Type Note Facility 04-10-2022 Note HNO ID: [id number] Author: Russell Rowe MD Service: ? Author Type: Physician Type: Progress Notes Filed: 04/10/2022 11:13 AM Note Text: HISTORY AND PHYSICAL Jad Phillips 1945 REFERRING PHYSICIAN: Yaniv Wiseman, RESIDENCE HALL DIRECTOR CHIEF COMPLAINT: Consult (lipoma right back) HPI: The patient is a 76 year old female with a complaint of subcutaneous lesion on her back. Patient noticed this after she got COVID in July 2021. Not sure if it was there longer than that. She notices it more when she leans back.. The patient is being seen by me today at the request of Dr. Wiseman for my opinion and advice regarding Lesion of subcutaneous tissue (primary encounter diagnosis). PAST MEDICAL HISTORY Diagnosis Date - Acute gastritis without mention of hemorrhage - Balance problem post-COVID - Benign neoplasm of colon - Bradycardia - CKD (chronic kidney disease) stage 3, GFR 30-59 ml/min (HCC) - COVID-19 07/2021 - Dizzy - Esophagitis, unspecified - Essential hypertension - GERD (gastroesophageal reflux disease) - Increased BMI - Lipoma of back - Mixed hyperlipidemia - Murmur, heart - MVP (mitral valve prolapse) - Non-rheumatic mitral regurgitation - Other and unspecified mitral valve diseases - Peripheral vascular disease (HCC) - Varicose veins of legs - Vitamin D deficiency PAST SURGICAL HISTORY Procedure Laterality Date - CHOLECYSTECTOMY - COLONOSCOPY FLX DX W/COLLJ SPEC WHEN PFRMD 02/17/2006 Colonoscopy - ESOPHAGOGASTRODUODENOSCOPY TRANSORAL DIAGNOSTIC 02/17/2006 EGD - NEUROPLASTY AND/TRANSPOS MEDIAN NRV CARPAL TUNNE ravindra Carpal tunnel decomp - PAST SURGICAL HISTORY OF 04/05/2019 back surgery - PAST SURGICAL HISTORY OF bone spur (unspecified location) - TOTAL ABDOMINAL HYSTERECT W/WO RMVL TUBE OVARY - TOTAL KNEE REPLACEMENT unspecified location Current Outpatient Medications Medication Sig - amLODIPine (NORVASC) 5 mg tablet Take by mouth once daily. - atenolol (TENORMIN) 100 mg tablet Take 100 mg by mouth once daily. - lovastatin 40 mg tablet Take 40 mg by mouth daily at bedtime. - acetaminophen 325 mg cap Take 325 mg by mouth every 4 hours as needed. - cholecalciferol, vitamin D3, (VITAMIN D3 ORAL) Take 2,000 Int'l Units by mouth once daily. - Red Yeast Rice Extract 600 mg cap Take 600 mg by mouth once daily. - losartan-hydroCHLOROthiazide (HYZAAR) 50-12.5 mg per tablet Take 1 tablet by mouth once daily. - loratadine 10 mg cap Take 10 mg by mouth as needed. - omeprazole (PRILOSEC) 20 mg capsule Take 40 mg by mouth. (Patient not taking: Reported on 04/03/2022 ) - LANSOPRAZOLE 30 MG RAPID DISSOLVE TAB, DELAYED RELEASE .qd (Patient not taking: Reported on 04/03/2022) - LANSOPRAZOLE 30 MG RAPID DISSOLVE TAB, DELAYED RELEASE .qd (Patient not taking: Reported on 04/03/2022) - ZESTRIL 10 MG TAB Take one(1) tablet daily. (Patient not taking: ) - VYTORIN 10/20 10 MG-20 MG TAB Take one(1) tablet daily. (Patient not taking: ) - MOBIC 7.5 MG TAB as necessary (Patient not taking: ) - BENADRYL ALLERGY 25 MG TAB Take one(1) tablet daily. (Patient not taking: ) - NADOLOL 20 MG TAB Take one(1) tablet daily. (Patient not taking: ) - CLEOCIN IN D5W 600 MG/50 ML IV PIGGY BACK IVPB registration scheduling specialist (Patient not taking: Reported on 04/03/2022) No current facility-administered medications for this visit. ALLERGIES: Bextra [Valdecoxib], Buspar [Buspirone Hcl], Crestor [Rosuvastatin Calcium], Doxycycline, Eryc [Erythromycin], Lanoxin [Digoxin], Penicillins, Premarin [Conjugated Estrogens], Propanidid, and Tramadol PERSONAL HISTORY: Social History Tobacco Use - Smoking status: Never Smoker - Smokeless tobacco: Never Used Vaping Use - Vaping Use: Never used Substance Use Topics - Alcohol use: No - Drug use: No FAMILY HISTORY: FAMILY HISTORY Problem Relation Age of Onset - Hypertension Mother - Anesthesia Father - Stroke Father - Hypertension Sister - Hypertension Brother REVIEW OF SYMPTOMS: The review of systems data was entered by the nurse and reviewed by dc Nursing Notes: Rosa Hodge RN 04/03/2022 9:20 AM Signed REVIEW OF SYSTEMS: General: The patient denies fatigue, denies weight loss, denies weight gain, denies feeling hot, and denies feelings of cold. Eyes: The patient denies glaucoma, denies eye injury/surgery, wears glasses or contacts. Ear/Nose/Throat: The patient NOTES allergies, denies hayfever, denies ear infections, and denies bloody noses. Cardiovascular: The patient denies chest pain, denies heart disease, NOTES high blood pressure,denies cardiac stent, denies prior heart attack, denies irregular heart beat, NOTES high cholesterol, denies poor circulation, denies heart failure, other cardiac issues, NOTES claudication, denies cold feet, denies peripheral arterial stent. Respiratory: The patient denies tuberculosis, denies pneumonia, denies frequent cough, denies pulmonary embol (more content not included)... [facility] 04-10-2022 History of Present illness Narrative HISTORY AND PHYSICAL Jad Phillips 1945 REFERRING PHYSICIAN: Yaniv Wiseman, RESIDENCE HALL DIRECTOR CHIEF COMPLAINT: Consult (lipoma right back) HPI: The patient is a 76 year old female with a complaint of subcutaneous lesion on her back. Patient noticed this after she got COVID in July 2021. Not sure if it was there longer than that. She notices it more when she leans back.. The patient is being seen by me today at the request of Dr. Wiseman for my opinion and advice regarding Lesion of subcutaneous tissue (primary encounter diagnosis). PAST MEDICAL HISTORY Diagnosis Date Acute gastritis without mention of hemorrhage Balance problem post-COVID Benign neoplasm of colon Bradycardia CKD (chronic kidney disease) stage 3, GFR 30-59 ml/min ([facility]) COVID-19 07/2021 Dizzy Esophagitis, unspecified Essential hypertension GERD (gastroesophageal reflux disease) Increased BMI Lipoma of back Mixed hyperlipidemia Murmur, heart MVP (mitral valve prolapse) Non-rheumatic mitral regurgitation Other and unspecified mitral valve diseases Peripheral vascular disease (HCC) Varicose veins of legs Vitamin D deficiency PAST SURGICAL HISTORY Procedure Laterality Date CHOLECYSTECTOMY COLONOSCOPY FLX DX W/COLLJ SPEC WHEN PFRMD 02/17/2006 Colonoscopy ESOPHAGOGASTRODUODENOSCOPY TRANSORAL DIAGNOSTIC 02/17/2006 EGD NEUROPLASTY &/TRANSPOS MEDIAN NRV CARPAL TUNNE ravindra Carpal tunnel decomp PAST SURGICAL HISTORY OF 04/05/2019 back surgery PAST SURGICAL HISTORY OF bone spur (unspecified location) TOTAL ABDOMINAL HYSTERECT W/WO RMVL TUBE OVARY TOTAL KNEE REPLACEMENT unspecified location Current Outpatient Medications Medication Sig amLODIPine (NORVASC) 5 mg tablet Take by mouth once daily. atenolol (TENORMIN) 100 mg tablet Take 100 mg by mouth once daily. lovastatin 40 mg tablet Take 40 mg by mouth daily at bedtime. acetaminophen 325 mg cap Take 325 mg by mouth every 4 hours as needed. cholecalciferol, vitamin D3, (VITAMIN D3 ORAL) Take 2,000 Int'l Units by mouth once daily. Red Yeast Rice Extract 600 mg cap Take 600 mg by mouth once daily. losartan-hydroCHLOROthiazide (HYZAAR) 50-12.5 mg per tablet Take 1 tablet by mouth once daily. loratadine 10 mg cap Take 10 mg by mouth as needed. omeprazole (PRILOSEC) 20 mg capsule Take 40 mg by mouth. (Patient not taking: Reported on 04/03/2022 ) LANSOPRAZOLE 30 MG RAPID DISSOLVE TAB, DELAYED RELEASE .qd (Patient not taking: Reported on 04/03/2022) LANSOPRAZOLE 30 MG RAPID DISSOLVE TAB, DELAYED RELEASE .qd (Patient not taking: Reported on 04/03/2022) ZESTRIL 10 MG TAB Take one(1) tablet daily. (Patient not taking: ) VYTORIN 10/20 10 MG-20 MG TAB Take one(1) tablet daily. (Patient not taking: ) MOBIC 7.5 MG TAB as necessary (Patient not taking: ) BENADRYL ALLERGY 25 MG TAB Take one(1) tablet daily. (Patient not taking: ) NADOLOL 20 MG TAB Take one(1) tablet daily. (Patient not taking: ) CLEOCIN IN D5W 600 MG/50 ML IV PIGGY BACK IVPB registration scheduling specialist (Patient not taking: Reported on 04/03/2022) No current facility-administered medications for this visit. ALLERGIES: Bextra [Valdecoxib], Buspar [Buspirone Hcl], Crestor [Rosuvastatin Calcium], Doxycycline, Eryc [Erythromycin], Lanoxin [Digoxin], Penicillins, Premarin [Conjugated Estrogens], Propanidid, and Tramadol PERSONAL HISTORY: Social History Tobacco Use Smoking status: Never Smoker Smokeless tobacco: Never Used Vaping Use Vaping Use: Never used Substance Use Topics Alcohol use: No Drug use: No FAMILY HISTORY: FAMILY HISTORY Problem Relation Age of Onset Hypertension Mother Anesthesia Father Stroke Father Hypertension Sister Hypertension Brother REVIEW OF SYMPTOMS: The review of systems data was entered by the nurse and reviewed by me Nursing Notes: Rosa Hodge RN 04/03/2022 9:20 AM Signed REVIEW OF SYSTEMS: General: The patient denies fatigue, denies weight loss, denies weight gain, denies feeling hot, and denies feelings of cold. Eyes: The patient denies glaucoma, denies eye injury/surgery, wears glasses or contacts. Ear/Nose/Throat: The patient NOTES allergies, denies hayfever, denies ear infections, and denies bloody noses. Cardiovascular: The patient denies chest pain, denies heart disease, NOTES high blood pressure,denies cardiac stent, denies prior heart attack, denies irregular heart beat, NOTES high cholesterol, denies poor circulation, denies heart failure, other cardiac issues, NOTES claudication, denies cold feet, denies peripheral arterial stent. Respiratory: The patient denies tuberculosis, denies pneumonia, denies frequent cough, denies pulmonary embolism, denies shortness of breath, and denies coughing up blood. Gastrointestinal: The patient denies difficulty swallowing, NOTES acid reflux, denies ulcers, denies vomiting, denies jaundice/hepatitis, NOTES gallbladder problems, denies black or tarry stools, denies hemorrhoids, denies bleeding from rectum, denies diverticulitis, denies constipation, denies diarrhea, denies loss of stool control, and denies hernias. Kidney/Bladder: The patient denies kidney stones, denies urine infections, and denies bloody urine. Skin: The patient denies a history of skin cancer, denies bleeding/changing moles, and denies a history of skin rash. Neurologic: The patient denies a history of epilepsy/convulsions, denies headaches, denies head/spinal injuries, and denies stroke/TIA. Psychiatric: The patient denies psychiatric medications, denies depression, and denies voices, denies substance abuse. Endocrine: The patient denies thyroid disorders, denies diabetes, and denies hormonal problems. Hematologic: The patient NOTES a history of bruising, denies bleeding, and denies anemia, denies blood clots. Infections: The patient denies a history of measles and mumps, denies rheumatic fever, and denies sexually transmitted diseases. Musculoskeletal: The patient NOTES back pain/injury, denies back problems, denies sciatica, denies knee/foot trouble, denies arthritis, or denies gout. When was patient's last Mammogram screening? Unknown Last Colonoscopy: 2005 Rosa Hodge RN PHYSICAL EXAMINATION: General: The patient is 76 year old female, well nourished, well hydrated in no acute distress. The patient is oriented to time, place, and person. VITALS: Blood pressure 138/60, pulse 60, temperature 36.3 C (97.3 F), height 160 cm (5' 3"), weight 105.8 kg (233 lb 3.2 oz), SpO2 95 %. HEENT: Normal cephalic, ataumatic, pupils are equally round, sclera are anicteric, mucous membranes are moist, oropharynx is clear. Neck has no masses, asymmetry or lymphadenopathy. Thyroid is unremarkable. Respiratory: Clear to auscultation and percussion. Normal respiratory excursion and pattern. Cardiac: Examination is regular rate and rhythm. Abdominal exam: Soft, nontender, with no palpable masses. No hepatosplenomegaly. No palpable hernias. Rectal exam: exam deferred Extremities: no clubbing, cyanosis or edema. No adenopathy. Other: Patient has a subcutaneous lesion on her upper back that is at least 7 to 10 cm in greatest diameter. There is no signs of cellulitis there is no signs of infection LABORATORY VALUES: As Noted RADIOLOGIC STUDIES: As Noted Assessment IMPRESSION: Lesion of subcutaneous tissue (primary encounter diagnosis) PLAN: Plan will be to excise this in the office. Risk benefits include bleeding infection and possible recurrence have been reviewed with the patient and she agrees to proceed. Diagnoses: (L98.9) Lesion of subcutaneous tissue (primary encounter diagnosis) A letter was sent to NELSON Barnes, JIMBO indicating the above finding for this patient. Return to Clinic: The patient is instructed to follow-up with me 1 week post operatively. Russell Rowe III, MD documented in this encounter [facility] 04-03-2022 Nurse Note REVIEW OF SYSTEMS: General: The patient denies fatigue, denies weight loss, denies weight gain, denies feeling hot, and denies feelings of cold. Eyes: The patient denies glaucoma, denies eye injury/surgery, wears glasses or contacts. Ear/Nose/Throat: The patient NOTES allergies, denies hayfever, denies ear infections, and denies bloody noses. Cardiovascular: The patient denies chest pain, denies heart disease, NOTES high blood pressure,denies cardiac stent, denies prior heart attack, denies irregular heart beat, NOTES high cholesterol, denies poor circulation, denies heart failure, other cardiac issues, NOTES claudication, denies cold feet, denies peripheral arterial stent. Respiratory: The patient denies tuberculosis, denies pneumonia, denies frequent cough, denies pulmonary embolism, denies shortness of breath, and denies coughing up blood. Gastrointestinal: The patient denies difficulty swallowing, NOTES acid reflux, denies ulcers, denies vomiting, denies jaundice/hepatitis, NOTES gallbladder problems, denies black or tarry stools, denies hemorrhoids, denies bleeding from rectum, denies diverticulitis, denies constipation, denies diarrhea, denies loss of stool control, and denies hernias. Kidney/Bladder: The patient denies kidney stones, denies urine infections, and denies bloody urine. Skin: The patient denies a history of skin cancer, denies bleeding/changing moles, and denies a history of skin rash. Neurologic: The patient denies a history of epilepsy/convulsions, denies headaches, denies head/spinal injuries, and denies stroke/TIA. Psychiatric: The patient denies psychiatric medications, denies depression, and denies voices, denies substance abuse. Endocrine: The patient denies thyroid disorders, denies diabetes, and denies hormonal problems. Hematologic: The patient NOTES a history of bruising, denies bleeding, and denies anemia, denies blood clots. Infections: The patient denies a history of measles and mumps, denies rheumatic fever, and denies sexually transmitted diseases. Musculoskeletal: The patient NOTES back pain/injury, denies back problems, denies sciatica, denies knee/foot trouble, denies arthritis, or denies gout. When was patient's last Mammogram screening? Unknown Last Colonoscopy: 2005 Rosa Hodge RN documented in this encounter [facility] Chief complaint+Reason for v isit [facility] Work Phone: Evaluation + Plan note Future Appointments Appointment Date:03/17/2022 09:40:00 AM Scheduled Provider:YANIV WISEMAN APRN, CNP Location:[facility] Appointment Type:PC OV Follow Up Appointment Date:05/19/2022 10:00:00 AM Scheduled Provider:MARCELLA JEFFREY [facility] Appointment Type:CV OV Future Scheduled Tests Laboratory* Complete Blood Count 08/25/21 * Lipid Profile 08/25/21 * Vitamin D Level 08/25/21 * Complete Metabolic Panel 08/25/21 [facility] Evaluation + Plan note Future Appointments Appointment Date:09/29/2022 09:00:00 AM Scheduled Provider:YANIV WISEMAN APRN, CNP Location:[facility] Appointment Type:PC OV Follow Up Appointment Date:11/24/2022 09:30:00 AM Scheduled Provider:MARCELLA JEFFREY [facility] Appointment Type:CV OV Future Scheduled Tests Laboratory* Complete Blood Count 08/18/22 * Microalbumin Level Urine 09/17/22 * Complete Metabolic Panel 08/18/22 Radiology* XR Chest 2 Views (PA & Lateral) 08/18/22 [facility] Evaluation + Plan note Future Appointments Appointment Date:04/29/2023 09:15:00 AM Scheduled Provider: Location:[facility] Appointment Type:PC Nurse Lab Appointment Date:05/04/2023 09:20:00 AM Scheduled Provider:YANIV WISEMAN APRN, CNP Location:[facility] Appointment Type:PC OV Follow Up Appointment Date:05/25/2023 09:30:00 AM Scheduled Provider:MARCELLA JEFFREY [facility] Appointment Type:CV OV Future Scheduled Tests Laboratory* Complete Blood Count 08/18/22 * Complete Blood Count 05/03/23 * Lipid Profile 05/03/23 * Microalbumin Level Urine 09/17/22 * Microalbumin Level Urine 05/03/23 * Vitamin D Level 05/03/23 * Complete Metabolic Panel 08/18/22 * Complete Metabolic Panel 05/03/23 Radiology* XR Chest 2 Views (PA & Lateral) 08/18/22 [facility] Evaluation + Plan note Future Appointments Appointment Date:05/04/2023 09:20:00 AM Scheduled Provider:YANIV WISEMAN APRN, CNP Location:[facility] Appointment Type:PC OV Follow Up Appointment Date:06/01/2023 11:00:00 AM Scheduled Provider:MARCELLA JEFFREY [facility] Appointment Type:CV OV Future Scheduled Tests Laboratory* Complete Blood Count 08/18/22 * Microalbumin Level Urine 09/17/22 * Microalbumin Level Urine 05/03/23 * Complete Metabolic Panel 08/18/22 Radiology* XR Chest 2 Views (PA & Lateral) 08/18/22 [facility] EvaluAdly + Plan note Future Appointments Appointment Date:11/09/2023 09:20:00 AM Scheduled Provider:YANIV WISEMAN APRN, CNP Location:[facility] Appointment Type:PC OV Follow Up Appointment Date:12/21/2023 10:30:00 AM Scheduled Provider:MARCELLA JEFFREY [facility] Appointment Type:CV OV Diagnostic Tests Pending * Renin Activity, Plasma 10/28/23 Future Scheduled Tests Laboratory* Microalbumin Level Urine 05/03/23 [facility] Evaluation + Plan note Future Appointments Appointment Date:05/23/2024 08:40:00 AM Scheduled Provider:YANIV WISEMAN APRN, CNP Location:[facility] Appointment Type:PC OV Follow Up Appointment Date:07/18/2024 09:30:00 AM Scheduled Provider:MARCELLA JEFFREY Location:[facility] Appointment Type:CV OV Future Scheduled Tests Laboratory* Albumin/Creatinine Ratio, Random Urine 24 * Microalbumin Level Urine 05/03/23 [facility] Evaluation + Plan note Future Appointments Appointment Date:11/28/2024 09:00:00 AM Scheduled Provider:YANIV WISEMAN APRN, CNP Location:[facility] Appointment Type:PC OV Appointment Date:01/23/2025 09:30:00 AM Scheduled Provider:MARCELLA JEFFERY Location:[facility] Appointment Type:CV OV Future Scheduled Tests Laboratory* Albumin/Creatinine Ratio, Random Urine 05/09/24 * Albumin/Creatinine Ratio, Random Urine 11/23/24 [facility] Evaluation + Plan note Future Appointments Appointment Date:05/30/2025 10:30:00 AM Scheduled Provider:MARCELLA JEFFREY Location:[facility] Appointment Type:CV OV Appointment Date:06/05/2025 09:40:00 AM Scheduled Provider:YANIV WISEMAN APRN, CNP Location:[facility] Appointment Type:PC OV Future Scheduled Tests Laboratory* Albumin/Creatinine Ratio, Random Urine 05/09/24 * Albumin/Creatinine Ratio, Random Urine 11/23/24 * Albumin/Creatinine Ratio, Random Urine 05/28/25 [facility] Evaluation note* Diagnosis Lesion of subcutaneous tissue- Primary Unspecified disorder of skin and subcutaneous tissue documented in this encounter [facility] noteNo assessment information availableWJ.[facility] Work Phone: Hospital course Narrative No data available for this section [facility] Hospital Discharge instructions No data available for this section [facility] Progress note No data available for this section [facility] Summary Purpose Family History No Family History Records Found Relationship Condition Age at Onset Recorded Date/T georgina Unknown Family History?No pertinent history Unkno wn January 27, 2016 12:44pm Family History?No pertinent history Unkno wn January 27, 2016 12:44pm Advance Directives No Advanced Directives Records Found Advance Directive Response Recorded Date/ Time Advance Directives No September 1:06pm Living Will Yes August 08 6:52am Power of Photographer Scientific Yes August 08, 2021 6:52am Chief Complaint and Reason for Visit Chief Complaint BALANCE ISSUE POST C OVID. RX HERE Additional Source Comments Care Team (unrecognized sect ion and content) Teacher Drama Relationship Specialty Start Date End Date Yaniv Wiseman, RESIDENCE HALL DIRECTOR [address] [place] [address] PCP - General Family Practice 03/27/22 Team Status: Active Member Role Status Dates Yaniv Wiseman RN CLINICAL, RN CLINICAL-C Family Provider Activ e Yaniv Wiseman RN CLINICAL, RN CLINICAL-C Primary Care Provider Active Team Status: Inactive Member Role Status Dates Yaniv Wiseman RN CLINICAL, RN CLINICAL-C Primary Care Provider Active Dr. Jim Cano MD Attending Provider, Refe rring Provider Active Source Comments (unrecognize d section and content) In the event this informatio n is protected by the Federal Confidentiality of Alcohol and Drug Abuse Patient Records regulations: The Federal rules restrict any use of the information to criminally investigate or prosecute any alcohol or drug abuse patient.[facility] Reason for Visit (unrecogniz ed section and content) Reason Comments Consult lipoma right back INFORMATION SOURCE (unrecogn ized section and content) DATE CREATED AUTHOR 04/11/2022 [facility] DATE CREATED AUTHOR 'S ORGANIZ ATION 08/24/2023 [facility] DATE CREATED AUTHOR AUTHOR'S ORGANIZ ATION 05/25/2024 [facility] ([place] DATE CREATED AUTHOR AUTHOR'S ORGANIZ ATION 05/28/2025 [facility] Goals (unrecognized section and content) Goals may be documented in a n alternate section Care Team (unrecognized sect ion and content) Care Team Personnel Name: YANIV WISEMAN COMMUNICATIONS WRITER - RESIDENCE HALL DIRECTOR Position: P4 Advanced Practice Nurse Member Role: Primary Care Physician Address: Address: [address] [place] [address] Care Team Related Persons Name: CHRIS VALDERRAMA Address: Home [address] [place] [address] [id number] [place] Name: DUSTIN VALDERRAMA Care Team Personnel Name: YANIV WISEMAN COMMUNICATIONS WRITER - RESIDENCE HALL DIRECTOR Position: P4 Advanced Practice Nurse Member Role: Primary Care Physician Address: Address: [address] [place] [address] Care Team Related Persons Name: CHRIS VALDERRAMA Address: Home [address] [place] [address] [phone] [place] Name: DUSTIN VALDERRAMA FOR RECORDS PERTAINING TO PATIENTS WHO ARE OR HAVE BEEN ENROLLED IN A CHEMICAL DEPENDENCY/SUBSTANCEABUSE PROGRAM, SOME INFORMATION MAY BE OMITTED. This clinical summary was aggregated from multiple sources. Caution should be exercised in using it in the provision of clinical care. This summary normalizes information from multiple sources, and as a consequence, information in this document may materially change the coding, format and clinical context of patient data. In addition, data may be omitted in some cases. CLINICAL DECISIONS SHOULD BE BASED ON THE PRIMARY CLINICAL RECORDS. [employer] [facility]. provides no warranty or guarantee of the accuracy or completeness of information in this document.
== END | disposition home or self-care (01) ==
PROVIDERS: PCP Nurse Practitioner Family; Visit Provider Otolaryngology
DX: H92.10 Otorrhea, unspecified ear (principal)